=== PATIENT | male | born 1945 | race Caucasian/White ===

== ENCOUNTER 2018-07-04 09:11 | Emergency (ER) | payer OTHER, SELFPAY ==
[2018-07-04 09:21] VITALS: BP 147/90; PULSE 79; RESP 16; TEMP 36.7; O2SAT 98; BMI 35.9
--- NOTE | 2018-07-04 10:52 | ED_ITS ---
HPI - Extremity Problem General Chief complaint: Extremity Injury, Lower Stated complaint: Right leg pain/swelling/redness Time Seen by Provider: 07/04/18 10:38 Source: patient Mode of arrival: ambulatory Limitations: no limitations History of Present Illness HPI Narrative: This is a 72-year-old gentleman who comes to the emergency department with complaint of redness and swelling of his right lower extremity for a couple days. Last night he noticed a small bump on the anterior parker and overnight it got larger. The lump itself is quite tender. The patient thinks he might have had a fever overnight. He has not had any shortness of breath or chest pain. No nausea or vomiting. No diarrhea or constipation. He has felt a little under the weather. States he has had issues with redness and infections in that leg remotely in the past but not recently. He has not had any recent cuts or injuries that he is aware of. He has had some swelling in that lower extremity since it got red and painful. He is not having any numbness or tingling. He did take some Advil at home for pain yesterday. Related Data Previous Rx's Medication Instructions Recorded meloxicam [Mobic] 7.5 mg PO BIDCC PRN #10 tab 10/12/16 cyclobenzaprine 10 mg PO TIDP PRN #30 tab 10/17/16 clindamycin HCl 300 mg PO QID 10 Days #40 cap 07/04/18 Allergies Allergy/AdvReac Type Severity Reaction Status Date / Time No Known Drug Allergies Allergy Verified 07/04/18 09:21 Review of Systems Review of Systems All systems reviewed & are unremarkable except as noted in HPI and below Constitutional Reports fever(s) (Possible) and Denies weakness Cardiovascular Denies chest pain, Denies irregular heart rhythm, Denies lightheadedness, Denies palpitations, Denies dyspnea, Denies dyspnea on exertion and Denies orthopnea Respiratory Denies cough, Denies dyspnea, Denies dyspnea on exertion and Denies wheezing Gastrointestinal Gastrointestinal: Denies abdominal pain, Denies change in bowel habits, Denies diarrhea, Denies nausea and Denies vomiting Integumentary/Breasts Reports as per HPI, Reports rash, Reports skin pain and Reports skin swelling Neurologic Denies sensory deficit and Denies weakness Endocrine Denies palpitations Allergic/Immunologic Denies wheezing [facility] Surgical History Status post knee surgery Exam Initial Vital Signs Initial Vital Signs: Vital Signs Temperature 98.1 F 07/04/18 09:21 Pulse Rate 79 07/04/18 09:21 Respiratory Rate 16 07/04/18 09:21 Blood Pressure 147/90 H 07/04/18 09:21 Pulse Oximetry 98 07/04/18 09:21 Chest Chest: normal inspection of the chest Resp Effort & Inspection: normal respiratory effort, able to speak in complete sentences, no respiratory distress and no use of accessory muscles Auscultation: clear to auscultation bilaterally, no rales, no rhonchi and no wheezes Cardio Rate: regular rate Rhythm: regular rhythm Heart Sounds: no click, no gallops, no murmurs and no rubs Pulses: normal peripheral pulses GI Inspection: non-distended Palpation: soft, no hepatosplenomegaly, No guarding, No pulsatile mass and No tender Auscultation: normal bowel sounds Skin General: No ecchymosis, erythema, fluctuance (1 cm area of raised fluctuance over the right anterior parker. Soft, tender, warm to touch), No petechiae, No purpura and warm Neuro General: alert, oriented x3, gait normal and no focal motor deficits Speech: speech normal Motor: muscle tone normal throughout and strength 5/5 throughout Sensory Exam: no sensory deficits noted Extrem Right lower extremity: full ROM, normal capillary refill, edema Details: non- pitting and 1+, lower leg (Patient has an area of induration is about a cm surrounded by approximately 5 cm of erythema, warmth and edema.) Details: erythema Location: of the mid lower leg, tenderness and warmth and foot Details : normal capillary refill and vascular exam Details: dorsalis pedis pulse present and posterior tibial pulse present; no cyanosis Procedures Abscess I/D Site: lower extremity Side (if applicable): right Local Anesthetic: other anesthetic (topical lidocaine) Technique: incised with #11 blade Amount of fluid expressed (mL): 3 Irrigation: Yes Packing used?: none Complications: bleeding (very mild) Course Orders Ordered: ED Orders 07/04/18 11:20 Basic Metabolic Panel Stat Complete Blood Count AUTO DIFF Stat Discontinued Medications Clindamycin Phosphate (Cleocin) 600 mg in 50 mls @ 50 mls/hr IV NOW ONE Stop: 07/04/18 11:49 Last Infusion: 07/04/18 12:23 Dose: 0 mls/hr Admin: 07/04/18 11:17 Dose: 50 mls/hr Lidocaine (Lidocaine Oint) 1 applic TOP NOW ONE Stop: 07/04/18 10:51 Last Admin: 07/04/18 11:17 Dose: 1 applic Vital Signs - 8 hr 07/04/18 12:04 Temperature 98.1 F Pulse Rate 79 Respiratory Rate 16 Blood Pressure 147/90 H Pulse Oximetry 98 MDM - Extremity (Nontraumatic) Lab Data Result diagrams: 07/04/18 11:20 07/04/18 11:20 Lab Results 07/04/18 07/04/18 Range/Units 11:20 11:20 WBC 12.6 H (4.5-11.0) X10^3/uL RBC 4.37 L (4.5-5.9) X10^6/uL Hgb 14.5 (13.5-17.5) g/dL Hct 41.7 (41-53) % MCV 95.4 (80-100) fL MCH 33.1 (26-34) PG MCHC 34.7 (30-36) % RDW 14.3 (11.6-14.8) % Plt Count 187 (150-400) X10^3/uL Neut % (Auto) 75.5 H (50-75) % Lymph % (Auto) 13.2 L (25-40) % [place] % (Auto) 10.2 (3-14) % Eos % (Auto) 0.8 L (2-4) % Baso % (Auto) 0.3 (0-2) % Neut # (Auto) 9500 H (0564-7029) /uL Sodium 142 (137-145) mmol/L Potassium 4.2 (3.4-5.1) mmol/L Chloride 107 (98-107) mmol/L Carbon Dioxide 25 (22-32) mmol/L BUN 12 (9-20) mg/dL Creatinine 0.90 (0.66-1.25) mg/dL Estimated GFR > 60.0 (>60) mL/min BUN/Creatinine Ratio 13.3 (6-22) Glucose 88 (80-110) mg/dL Calcium 9.0 (8.4-10.2) mg/dL MDM Narrative Medical decision making narrative: Patient appears to have a small abscess which was drained by MD which had on of purulent fluid in comparison to the size of the lesion patient has some surrounding cellulitis. He was given a dose of clindamycin IV. Lab work did not show any acute changes he does not have any other signs of sepsis or SIRS criteria. Patient was offered to return for repeat evaluation and potentially another dose of IV antibiotics but he prefers to switch to orals at this time which I think he will tolerate well. We discussed wound care and the need to continue warm compresses. Discharge Plan Departure Patient Disposition: Home Clinical Impression: Abscess of left lower extremity, Cellulitis of left leg Discharge Date/Time: 07/04/18 12:34 Interventions: ED Discharge Assessment Last Done: 07/04/18 12:33 Instructions: DI for Skin Abscess Activity Restrictions/Additional Instructions: Follow-up in 48 hr if your symptoms are not improving. May either follow up with your primary care physician or if you're having fevers greater than 100.4, increasing redness, increasing swelling or rapidly increasing / worsening symptoms return to the emergency department. Take antibiotics until they are completely gone. You may continue to take Advil as needed for pain. Continue to use warm compresses to the affected area. Prescriptions: New clindamycin HCl 300 mg capsule 300 mg PO QID 10 Days Qty: 40 RF: 0 No Action meloxicam [Mobic] 7.5 MG tablet 7.5 mg PO BIDCC PRNQty: 10 RF: 0 cyclobenzaprine 10 MG tablet 10 mg PO TIDP PRNQty: 30 RF: 0
[2018-07-04] MEDS: CLINDAMYCIN 600 MG/50 ML PIGGYBACK 50 MG IV (11:17)
[2018-07-04] MEDS: LIDOCAINE 5% OINT 35 GM 1 APPLIC TOP (11:17)
[2018-07-04 11:44] LABS: Add Manual Diff / Slide Review NO; Basophils Percent Auto 0.3 % (0-2); Eosinophils Percent Auto 0.8 % (2-4); Hematocrit 41.7 % (41-53); Hemoglobin 14.5 g/dL (13.5-17.5); Lymphocytes Percent Auto 13.2 % (25-40); Mean Corpuscular HGB Conc 34.7 % (30-36); Mean Corpuscular Hemoglobin 33.1 PG (26-34); Mean Corpuscular Volume 95.4 fL (80-100); Monocytes Percent Auto 10.2 % (3-14); Neutrophils Absolute Auto 9500 /uL (3000-5900); Neutrophils Percent Auto 75.5 % (50-75); Platelet Count 187 X10^3/uL (150-400); Red Blood Cell Count 4.37 X10^6/uL (4.5-5.9); Red Cell Distribution Width 14.3 % (11.6-14.8); White Blood Cell Count 12.6 X10^3/uL (4.5-11.0)
[2018-07-04 11:51] LABS: BUN Creatinine Ratio 13.3 (6-22); Blood Urea Nitrogen 12 mg/dL (9-20); Carbon Dioxide 25 mmol/L (22-32); Chloride 107 mmol/L (98-107); Estimated Glomerular Filt Rate > 60.0 mL/min (>60); Glucose 88 mg/dL (80-110); HEMOLYSIS < 15 (0-50); Potassium 4.2 mmol/L (3.4-5.1); Sodium 142 mmol/L (137-145)
[2018-07-04 12:04] VITALS: BP 147/90; PULSE 79; RESP 16; TEMP 36.7; O2SAT 98; BMI 35.9
== END 2018-07-04 12:34 | disposition home or self-care (01) ==
PROVIDERS: Emergency Provider Emergency Medicine; Family Provider Family Medicine; PCP Family Medicine
DX: L02.416 Cutaneous abscess of left lower limb (principal); L03.116 Cellulitis of left lower limb
CPT/HCPCS: 10060; 36591; 80048; 85025; 96365; 99283; 99284

== ENCOUNTER → 2018-09-14 11:30 | Outpatient (CLI) | payer OTHER, SELFPAY ==
--- NOTE | 2018-09-14 | DI.RAD.S_ITS ---
PROCEDURE: XR FOOT LT MIN 3V INDICATIONS: PERSISTANT LEFT FOOT PAIN TECHNIQUE: 3 views of the foot were acquired. COMPARISON: None. FINDINGS: Bones: No fractures or dislocations. No suspicious bony lesions. Soft tissues: There is marked soft tissue swelling over the dorsum of the forefoot. IMPRESSION: Soft tissue swelling of the dorsum of the forefoot. Although no bony erosions are identified, plain film radiography is relatively insensitive in the acute phases of osteomyelitis and may not demonstrate radiographic changes for 15 days. If acute osteomyelitis is of clinical concern, nuclear medicine regional bone scan or MRI is recommended. Dictated by: Karoline Fregoso M.D. on 09/14/2018 at 14:16 Approved by: Karoline Fregoso M.D. on 09/14/2018 at 14:20
== END ==
PROVIDERS: PCP Family Medicine; Visit Provider Family Medicine
DX: M79.672 Pain in left foot (principal); M79.89 Other specified soft tissue disorders
CPT/HCPCS: 73630

== ENCOUNTER → 2019-04-26 16:03 | Outpatient (CLI) | payer MEDICARE, MEDICAID, OTHER, SELFPAY ==
--- NOTE | 2019-04-26 | DI.RAD.S_ITS ---
PROCEDURE: XR FOOT LT MIN 3V INDICATIONS: NON HEALING WOUND L FOOT TECHNIQUE: 3 views of the foot were acquired. COMPARISON: [facility], CR, XR FOOT LT MIN 3V, 09/14/2018, 11:38. FINDINGS: Bones: No fractures or dislocations. No suspicious bony lesions. Mild osteophytic changes throughout left foot are seen. No gross bony erosive changes or cortical destruction. Tiny plantar and dorsal calcaneal enthesophytes are seen. Soft tissues: No tibiotalar joint effusion. Achilles tendon appears normal. Mild dorsal soft tissue swelling over mid and forefoot is seen. IMPRESSION: Mild left foot osteoarthritis. No fracture or dislocation. No radiographic evidence of osteomyelitis. Dorsal soft tissue swelling. Dictated by: Simón Saul M.D. on 04/26/2019 at 16:38 Approved by: Simón Saul M.D. on 04/26/2019 at 16:41
== END ==
PROVIDERS: PCP Family Medicine; Visit Provider Physician Assistant
DX: S91.302A Unspecified open wound, left foot, initial encounter (principal); M19.072 Primary osteoarthritis, left ankle and foot
CPT/HCPCS: 73630

== ENCOUNTER 2019-08-05 10:29 | Emergency (ER) | payer MEDICARE, MEDICAID, OTHER, SELFPAY ==
[2019-08-05 10:43] VITALS: BP 158/106; PULSE 74; RESP 20; TEMP 36.2; O2SAT 99; BMI 37.2
--- NOTE | 2019-08-05 10:50 | DI.RAD.S_ITS ---
PROCEDURE: XR SHOULDER LT MIN 2V INDICATIONS: injury TECHNIQUE: 3 views of the shoulder were acquired. COMPARISON: [facility], , CHEST 1 VIEW, 01/10/2012, 1:20. FINDINGS: Bones: No fractures or dislocations. There is moderate acromioclavicular joint degeneration. No suspicious bony lesions. Visualized ribs demonstrate mildly displaced fractures of the anterior left 3rd and 4th ribs. Soft tissues: No evidence of pneumothorax. No suspicious soft tissue calcifications. IMPRESSION: 1. No shoulder fracture or dislocation. 2. Fractures of the left 3rd and 4th ribs. Dictated by: Munir Mansfield M.D. on 08/05/2019 at 11:11 Approved by: Munir Mansfield M.D. on 08/05/2019 at 11:24
--- NOTE | 2019-08-05 10:51 | DI.RAD.S_ITS ---
PROCEDURE: XR SHOULDER RT MIN 2V INDICATIONS: injury/fall TECHNIQUE: 3 views of the shoulder were acquired. COMPARISON: None. FINDINGS: Bones: No acute fractures or dislocations. There is an old right clavicular fracture with moderate displacement of the fragments. Visualized ribs appear intact. Soft tissues: No suspicious soft tissue calcifications. IMPRESSION: 1. No definite acute fracture. 2. Chronic fracture of the right clavicle shaft demonstrated. Dictated by: Munir Mansfield M.D. on 08/05/2019 at 11:24 Approved by: Munir Mansfield M.D. on 08/05/2019 at 11:28
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
[2019-08-05 12:15] VITALS: BP 129/100; PULSE 64; RESP 16; O2SAT 99
== END 2019-08-05 12:32 | disposition home or self-care (01) ==
PROVIDERS: Emergency Provider Nurse Practitioner Family; PCP Family Medicine
DX: S49.91XA Unspecified injury of right shoulder and upper arm, initial encounter (principal); S49.92XA Unspecified injury of left shoulder and upper arm, initial encounter; W17.89XA Other fall from one level to another, initial encounter
CPT/HCPCS: 73030; 99282; 99283

== ENCOUNTER 2019-11-08 10:52 | Emergency (ER) | payer MEDICARE, MEDICAID, OTHER, SELFPAY ==
[2019-11-08] VITALS (8 sets, daily range): BP systolic 110–147; BP diastolic 62–99; PULSE 72–130; RESP 16–22; TEMP 37.4; O2SAT 94–100
--- NOTE | 2019-11-08 11:22 | ED.DIZZY ---
HPI - Dizziness <Daniela Mtz DO - Last Filed: 11/09/19 07:09> General Chief Complaint: Dizziness Stated Complaint: weak and dizzy Time Seen by Provider: 11/08/19 11:02 Source: patient Mode of arrival: Wheelchair Limitations: no limitations History of Present Illness HPI Narrative: Patient is a 73-year-old male who has history of atrial fibrillation presents with dizziness which started around 730 this morning. He said he woke up coughing as this started to feel dizzy he just felt like he is off balance it does seem to be little bit worse with position of the still doesn't feel quite right he says the back of the of his head doesn't feel right. He denies any fever or chills he does have a nonproductive cough. He denies any shortness of breath. MD complaint: dizziness and lightheadedness Related Data Home Medications Medication Instructions Recorded Confirmed Pain Pill 1 tab PO .ONCE 08/05/19 08/05/19 aspirin 325 mg PO DAILY 08/05/19 08/05/19 Previous Rx's Medication Instructions Recorded azithromycin See Rx Instructions .ROUTE 11/08/19 .COMPLEX #6 tab Allergies Allergy/AdvReac Type Severity Reaction Status Date / Time No Known Drug Allergies Allergy Verified 07/04/18 09:21 Review of Systems <DO Heavenly Lawson Last Filed: 11/09/19 07:09> Review of Systems ROS Unobtainable: All systems reviewed & are unremarkable except as noted in HPI and below Constitutional Constitutional: Denies chills, Denies fever(s), Denies frequent falls, Denies lethargy and Denies weakness Eyes Eyes: Denies change in vision, Denies eye discharge, Denies irritation and Denies loss of vision ENT Ears, Nose, Mouth, and Throat: Denies change in voice, Reports dizziness, Denies neck pain and Denies sore throat Cardiovascular Cardiovascular: Denies chest pain, Denies irregular heart rhythm, Denies lightheadedness, Denies palpitations, Denies dyspnea, Denies dyspnea on exertion and Denies orthopnea Respiratory Respiratory: Denies cough, Denies dyspnea, Denies dyspnea on exertion and Denies wheezing Gastrointestinal Gastrointestinal: Denies abdominal pain, Denies change in bowel habits, Denies diarrhea, Denies nausea and Denies vomiting Musculoskeletal Musculoskeletal: Denies neck pain Integumentary/Breasts Skin/Breast: Denies pruritus, Denies erythema, Denies rash and Denies wounds Neurologic Neurologic: Reports as per HPI, Denies confusion, Reports dizziness, Denies frequent falls, Denies lack of coordination, Denies focal weakness, Denies loss of vision and Denies weakness Psychiatric Psychiatric: Denies confusion Endocrine Endocrine: Denies palpitations Allergic/Immunologic Allergic/Immunologic: Denies wheezing Patient History <Daniela Mtz DO - Last Filed: 11/09/19 07:09> Medical History Atrial fibrillation (Acute) Surgical History Status post knee surgery Social History Smoking Status: Current every day smoker Smoking Status: Current every day smoker alcohol intake frequency: a few times a month Alcohol type: hard liquor Substance Use Type: does not use Exam <Daniela Mtz DO - Last Filed: 11/09/19 07:09> Initial Vital Signs Initial Vital Signs: Vital Signs Temperature 99.3 F 11/08/19 11:06 Pulse Rate 100 H 11/08/19 11:06 Respiratory Rate 16 11/08/19 11:06 Blood Pressure 142/99 H 11/08/19 11:06 Pulse Oximetry 97 11/08/19 11:06 GENERAL: Alert pleasant elderly male no acute distress HEENT: Head atraumatic,EOMI, pupils reactive CARDIOVASCULAR: Regular rate and rhythm without murmurs, rubs or gallops. RESPIRATORY: Breath sounds equal bilaterally, no wheezes rales or rhonchi. ABDOMEN: Soft, nontender. Normoactive bowel sounds all 4 quadrants. No guarding or rebound. EXTREMITIES: Normal range of motion, no clubbing or edema. Neurovascularly intact NEUROLOGICAL: Alert and oriented x4.Normal gait and speech. Cranial nerves II through XII grossly intact. Good [id number]-pain left shoulder on the, good [id number], strength equal bilaterally, no dysarthria or aphasia, sensation in tact to soft touch bilaterally, no visual changes, no facial droop arrest SKIN: Warm, dry, no laceration, no petechiae, no rashes or lesions. <Milly C Mank, DO - Last Filed: 11/08/19 20:30> Initial Vital Signs Initial Vital Signs: Vital Signs Temperature 99.3 F 11/08/19 11:06 Pulse Rate 100 H 11/08/19 11:06 Respiratory Rate 16 11/08/19 11:06 Blood Pressure 142/99 H 11/08/19 11:06 Pulse Oximetry 97 11/08/19 11:06 Scores <Daniela Mtz DO - Last Filed: 11/09/19 07:09> NIH Stroke Scale Level of Conciousness: Alert, keenly responsive Ask month/age: Answers both questions correctly. Open/close eyes, close hand: Performs both tasks correctly Best gaze horizontal: Normal Visual gutierrez: No visual loss Facial palsy: Normal symetrical movement Left arm drift: No drift for full 10 sec Right arm drift: No drift for full 10 sec Left leg drift: No drift for full 10 sec Right leg drift: No drift for full 10 sec Limb ataxia: Absent Sensory on face/arms/legs: Normal, no sensory loss Best language: No aphasia, normal Dysarthria: Normal Extinction or inattention: No abnormality Total NIH Stroke scale score: 0 Course <Daniela Mtz DO - Last Filed: 11/09/19 07:09> Orders Ordered: Discontinued Medications Sodium Chloride (Normal Saline 0.9%) 1,000 mls @ 150 mls/hr IV CONT HONG Last Infusion: 11/08/19 16:00 Dose: 150 mls/hr Documented by: Admin: 11/08/19 11:41 Dose: 150 mls/hr Documented by: MATTHEW Ceftriaxone Sodium 500 mg/ (Dextrose) 50 mls @ 100 mls/hr IV NOW ONE Stop: 11/08/19 14:23 Last Admin: 11/08/19 15:17 Dose: Not Given Documented by: MATTHEW Ceftriaxone Sodium/Dextrose (Rocephin) 1 gm in 50 mls @ 100 mls/hr IV NOW ONE Stop: 11/08/19 15:36 Last Infusion: 11/08/19 16:01 Dose: 0 mls/hr Documented by: Admin: 11/08/19 15:23 Dose: 100 mls/hr Documented by: MATTHEW Meclizine HCl (Antivert) 25 mg PO NOW ONE Stop: 11/08/19 11:23 Last Admin: 11/08/19 11:39 Dose: 25 mg Documented by: MATTHEW Vital Signs Vital signs: Vital Signs - 8 hr 11/08/19 13:04 11/08/19 13:30 11/08/19 14:00 Pulse Rate 80 130 H 76 Pulse Rate [Orthostatic Lying] 85 Pulse Rate [Orthostatic Sitting] 88 Pulse Rate [Orthostatic Standing] 123 H Respiratory Rate 16 20 Blood Pressure [Left Arm] 130/62 136/91 H Blood Pressure [Orthostatic Lying] 130/62 Blood Pressure [Orthostatic Sitting] 140/82 Blood Pressure [Orthostatic Standing] 147/86 H Pulse Oximetry 97 94 11/08/19 14:30 11/08/19 15:05 Pulse Rate 72 72 Pulse Rate [Orthostatic Lying] Pulse Rate [Orthostatic Sitting] Pulse Rate [Orthostatic Standing] Respiratory Rate 20 22 Blood Pressure [Left Arm] 133/74 135/79 Blood Pressure [Orthostatic Lying] Blood Pressure [Orthostatic Sitting] Blood Pressure [Orthostatic Standing] Pulse Oximetry 98 100 <Milly Clifford, - Last Filed: 11/08/19 20:30> Orders Ordered: Discontinued Medications Sodium Chloride (Normal Saline 0.9%) 1,000 mls @ 150 mls/hr IV CONT HONG Last Infusion: 11/08/19 16:00 Dose: 150 mls/hr Documented by: Admin: 11/08/19 11:41 Dose: 150 mls/hr Documented by: MATTHEW Ceftriaxone Sodium 500 mg/ (Dextrose) 50 mls @ 100 mls/hr IV NOW ONE Stop: 11/08/19 14:23 Last Admin: 11/08/19 15:17 Dose: Not Given Documented by: MATTHEW Ceftriaxone Sodium/Dextrose (Rocephin) 1 gm in 50 mls @ 100 mls/hr IV NOW ONE Stop: 11/08/19 15:36 Last Infusion: 11/08/19 16:01 Dose: 0 mls/hr Documented by: Admin: 11/08/19 15:23 Dose: 100 mls/hr Documented by: MATTHEW Meclizine HCl (Antivert) 25 mg PO NOW ONE Stop: 11/08/19 11:23 Last Admin: 11/08/19 11:39 Dose: 25 mg Documented by: MATTHEW Vital Signs Vital signs: Vital Signs - 8 hr 11/08/19 13:04 11/08/19 13:30 11/08/19 14:00 Pulse Rate 80 130 H 76 Pulse Rate [Orthostatic Lying] 85 Pulse Rate [Orthostatic Sitting] 88 Pulse Rate [Orthostatic Standing] 123 H Respiratory Rate 16 20 Blood Pressure [Left Arm] 130/62 136/91 H Blood Pressure [Orthostatic Lying] 130/62 Blood Pressure [Orthostatic Sitting] 140/82 Blood Pressure [Orthostatic Standing] 147/86 H Pulse Oximetry 97 94 11/08/19 14:30 11/08/19 15:05 Pulse Rate 72 72 Pulse Rate [Orthostatic Lying] Pulse Rate [Orthostatic Sitting] Pulse Rate [Orthostatic Standing] Respiratory Rate 20 22 Blood Pressure [Left Arm] 133/74 135/79 Blood Pressure [Orthostatic Lying] Blood Pressure [Orthostatic Sitting] Blood Pressure [Orthostatic Standing] Pulse Oximetry 98 100 MDM - Dizziness <Daniela Mtz DO - Last Filed: 11/09/19 07:09> Lab Data Attestation: I reviewed the patient's lab results. Result diagrams: 11/08/19 11:05 11/08/19 11:05 Labs: Lab Results 11/08/19 11/08/19 11/08/19 Range/Units 11:05 11:05 11:05 WBC 19.2 H (4.5-11.0) X10^3/uL RBC 4.76 (4.5-5.9) X10^6/uL Hgb 15.4 (13.5-17.5) g/dL Hct 44.6 (41-53) % MCV 93.6 (80-100) fL MCH 32.4 (26-34) PG MCHC 34.6 (30-36) % RDW 13.6 (11.6-14.8) % Plt Count 216 (150-400) X10^3/uL Neut % (Auto) 85.3 H (50-75) % Lymph % (Auto) 4.9 L (25-40) % [place] % (Auto) 9.3 (3-14) % Eos % (Auto) 0.2 L (2-4) % Baso % (Auto) 0.3 (0-2) % Neut # (Auto) 25430 H (5839-5978) /uL Lymph # (Auto) 900 L (0153-4498) /uL [place] # (Auto) 1800 H (0-900) /uL Eos # (Auto) 0 (0-450) /uL Baso # (Auto) 100 (0-100) /uL Sodium 140 (137-145) mmol/L Potassium 3.6 (3.4-5.1) mmol/L Chloride 107 (98-107) mmol/L Carbon Dioxide 23 (22-32) mmol/L BUN 7 L (9-20) mg/dL Creatinine 0.80 (0.66-1.25) mg/dL Estimated GFR > 60.0 (>60) mL/min BUN/Creatinine Ratio 8.8 (6-22) Glucose 117 H (80-110) mg/dL Lactate (0.7-2.1) mmol/L Calcium 9.2 (8.4-10.2) mg/dL Total Bilirubin 1.3 (0.2-1.3) mg/dL AST 34 (17-59) IU/L ALT 23 (<50) IU/L Alkaline Phosphatase 82 (38-126) U/L Troponin I < 0.012 (0.01-0.034) ng/mL B-Natriuretic Peptide < 100 (<100) Total Protein 7.3 (6.3-8.2) g/dL Albumin 4.1 (3.5-5.0) g/dL Globulin 3.2 (1.7-4.1) g/dL Albumin/Globulin Ratio 1.3 (1.0-2.8) Urine Color Urine Appearance Urine pH (4.5-8.0) Ur Specific [place] (1.000-1.035) Urine Protein (Negative) Urine Glucose (UA) (Negative) g/dL Urine Ketones (NEGATIVE) Urine Occult Blood (Negative) Urine Nitrate (Negative) Urine Bilirubin (NEGATIVE) Urine Urobilinogen (0.2) E.U./dL Ur Leukocyte Esterase (NEGATIVE) Urine RBC (0-5/HPF) Urine WBC (0-5/HPF) Urine Bacteria (None) Ur Culture Indicated? 11/08/19 11/08/19 11/08/19 Range/Units 11:05 13:30 15:17 WBC (4.5-11.0) X10^3/uL RBC (4.5-5.9) X10^6/uL Hgb (13.5-17.5) g/dL Hct (41-53) % MCV (80-100) fL MCH (26-34) PG MCHC (30-36) % RDW (11.6-14.8) % Plt Count (150-400) X10^3/uL Neut % (Auto) (50-75) % Lymph % (Auto) (25-40) % [place] % (Auto) (3-14) % Eos % (Auto) (2-4) % Baso % (Auto) (0-2) % Neut # (Auto) (2862-3071) /uL Lymph # (Auto) (0350-8158) /uL [place] # (Auto) (0-900) /uL Eos # (Auto) (0-450) /uL Baso # (Auto) (0-100) /uL Sodium (137-145) mmol/L Potassium (3.4-5.1) mmol/L Chloride (98-107) mmol/L Carbon Dioxide (22-32) mmol/L BUN (9-20) mg/dL Creatinine (0.66-1.25) mg/dL Estimated GFR (>60) mL/min BUN/Creatinine Ratio (6-22) Glucose (80-110) mg/dL Lactate 2.7 H 1.7 (0.7-2.1) mmol/L Calcium (8.4-10.2) mg/dL Total Bilirubin (0.2-1.3) mg/dL AST (17-59) IU/L ALT (<50) IU/L Alkaline Phosphatase (38-126) U/L Troponin I (0.01-0.034) ng/mL B-Natriuretic Peptide (<100) Total Protein (6.3-8.2) g/dL Albumin (3.5-5.0) g/dL Globulin (1.7-4.1) g/dL Albumin/Globulin Ratio (1.0-2.8) Urine Color Yellow Urine Appearance Cloudy Urine pH 6.5 (4.5-8.0) Ur Specific [place] 1.010 (1.000-1.035) Urine Protein 1+ H (Negative) Urine Glucose (UA) Negative (Negative) g/dL Urine Ketones Negative (NEGATIVE) Urine Occult Blood 1+ H (Negative) Urine Nitrate Negative (Negative) Urine Bilirubin Negative (NEGATIVE) Urine Urobilinogen 1.0 (0.2) E.U./dL Ur Leukocyte Esterase 3+ H (NEGATIVE) Urine RBC 0-1/hpf (0-5/HPF) Urine WBC >100/hpf H (0-5/HPF) Urine Bacteria Many (>30) H (None) Ur Culture Indicated? Specimen cultured ECG Data Attestation: I personally reviewed and interpreted this ECG as follows: Prior ECG tracings: available for review Interpretation: Atrial fibrillation rate [address] elevation or depressions, no prior EKG since 2011 where he was noted to be normal sinus rhythm MDM Narrative Medical decision making narrative: Patient's symptoms have improved with some IV fluid and meclizine. However he is noted to have leukocytosis of 19 but is afebrile. Chest x-ray and urinalysis are pending. He overall has improved and does not appear septic. Patient is signed out to Dr. Clifford for further medical management <Milly Clifford, DO - Last Filed: 11/08/19 20:30> Lab Data Attestation: I reviewed the patient's lab results. Labs: Lab Results 11/08/19 11/08/19 11/08/19 Range/Units 11:05 11:05 11:05 WBC 19.2 H (4.5-11.0) X10^3/uL RBC 4.76 (4.5-5.9) X10^6/uL Hgb 15.4 (13.5-17.5) g/dL Hct 44.6 (41-53) % MCV 93.6 (80-100) fL MCH 32.4 (26-34) PG MCHC 34.6 (30-36) % RDW 13.6 (11.6-14.8) % Plt Count 216 (150-400) X10^3/uL Neut % (Auto) 85.3 H (50-75) % Lymph % (Auto) 4.9 L (25-40) % [place] % (Auto) 9.3 (3-14) % Eos % (Auto) 0.2 L (2-4) % Baso % (Auto) 0.3 (0-2) % Neut # (Auto) 24284 H (0925-3613) /uL Lymph # (Auto) 900 L (8540-8153) /uL [place] # (Auto) 1800 H (0-900) /uL Eos # (Auto) 0 (0-450) /uL Baso # (Auto) 100 (0-100) /uL Sodium 140 (137-145) mmol/L Potassium 3.6 (3.4-5.1) mmol/L Chloride 107 (98-107) mmol/L Carbon Dioxide 23 (22-32) mmol/L BUN 7 L (9-20) mg/dL Creatinine 0.80 (0.66-1.25) mg/dL Estimated GFR > 60.0 (>60) mL/min BUN/Creatinine Ratio 8.8 (6-22) Glucose 117 H (80-110) mg/dL Lactate (0.7-2.1) mmol/L Calcium 9.2 (8.4-10.2) mg/dL Total Bilirubin 1.3 (0.2-1.3) mg/dL AST 34 (17-59) IU/L ALT 23 (<50) IU/L Alkaline Phosphatase 82 (38-126) U/L Troponin I < 0.012 (0.01-0.034) ng/mL B-Natriuretic Peptide < 100 (<100) Total Protein 7.3 (6.3-8.2) g/dL Albumin 4.1 (3.5-5.0) g/dL Globulin 3.2 (1.7-4.1) g/dL Albumin/Globulin Ratio 1.3 (1.0-2.8) Urine Color Urine Appearance Urine pH (4.5-8.0) Ur Specific [place] (1.000-1.035) Urine Protein (Negative) Urine Glucose (UA) (Negative) g/dL Urine Ketones (NEGATIVE) Urine Occult Blood (Negative) Urine Nitrate (Negative) Urine Bilirubin (NEGATIVE) Urine Urobilinogen (0.2) E.U./dL Ur Leukocyte Esterase (NEGATIVE) Urine RBC (0-5/HPF) Urine WBC (0-5/HPF) Urine Bacteria (None) Ur Culture Indicated? 11/08/19 11/08/19 11/08/19 Range/Units 11:05 13:30 15:17 WBC (4.5-11.0) X10^3/uL RBC (4.5-5.9) X10^6/uL Hgb (13.5-17.5) g/dL Hct (41-53) % MCV (80-100) fL MCH (26-34) PG MCHC (30-36) % RDW (11.6-14.8) % Plt Count (150-400) X10^3/uL Neut % (Auto) (50-75) % Lymph % (Auto) (25-40) % [place] % (Auto) (3-14) % Eos % (Auto) (2-4) % Baso % (Auto) (0-2) % Neut # (Auto) (6161-0724) /uL Lymph # (Auto) (2789-2306) /uL [place] # (Auto) (0-900) /uL Eos # (Auto) (0-450) /uL Baso # (Auto) (0-100) /uL Sodium (137-145) mmol/L Potassium (3.4-5.1) mmol/L Chloride (98-107) mmol/L Carbon Dioxide (22-32) mmol/L BUN (9-20) mg/dL Creatinine (0.66-1.25) mg/dL Estimated GFR (>60) mL/min BUN/Creatinine Ratio (6-22) Glucose (80-110) mg/dL Lactate 2.7 H 1.7 (0.7-2.1) mmol/L Calcium (8.4-10.2) mg/dL Total Bilirubin (0.2-1.3) mg/dL AST (17-59) IU/L ALT (<50) IU/L Alkaline Phosphatase (38-126) U/L Troponin I (0.01-0.034) ng/mL B-Natriuretic Peptide (<100) Total Protein (6.3-8.2) g/dL Albumin (3.5-5.0) g/dL Globulin (1.7-4.1) g/dL Albumin/Globulin Ratio (1.0-2.8) Urine Color Yellow Urine Appearance Cloudy Urine pH 6.5 (4.5-8.0) Ur Specific [place] 1.010 (1.000-1.035) Urine Protein 1+ H (Negative) Urine Glucose (UA) Negative (Negative) g/dL Urine Ketones Negative (NEGATIVE) Urine Occult Blood 1+ H (Negative) Urine Nitrate Negative (Negative) Urine Bilirubin Negative (NEGATIVE) Urine Urobilinogen 1.0 (0.2) E.U./dL Ur Leukocyte Esterase 3+ H (NEGATIVE) Urine RBC 0-1/hpf (0-5/HPF) Urine WBC >100/hpf H (0-5/HPF) Urine Bacteria Many (>30) H (None) Ur Culture Indicated? Specimen cultured Imaging Data Chest x-ray: Radiologist's Impression: ROCEDURE: XR CHEST 1V INDICATIONS: cough and WBC TECHNIQUE: One view of the chest was acquired. COMPARISON: [facility], CR, XR SHOULDER RT MIN 2V, 08/05/2019, 10:50. [facility], CR, CHEST 1 VIEW, 01/10/2012, 1:20. FINDINGS: Surgical changes and devices: None. Lungs and pleura: Right lower lung infiltrate is seen, which is likely within the right middle lobe. No other focal lung abnormality can be seen. Mediastinum: The cardiac contours are within normal limits. The aorta demonstrates calcification and tortuosity. Bones and chest wall: No suspicious bony lesions. There is an unhealed right clavicle fracture. Mild dextroconvex scoliotic curvature is seen. Age-appropriate bony degenerative changes are seen. Overlying soft tissues appear unremarkable. IMPRESSION: Right lower lung infiltrate, likely within the right middle lobe. Unhealed right clavicle fracture. Dictated by: Dimitrios Harris M.D. on 11/08/2019 at 13:05 Approved by: Dimitrios Harris M.D. on 11/08/2019 at 13:06 CT scan - head: Radiologist's Impression: [address] [address] [address] Scan Report Signed Patient: Sreekanth Cobb#: [id number] : 6Acct:[id number] Age/Sex: 73 / MDate of Service: 11/08/19 Loc: ED Accession Number: [id number] Procedure: CT head/brain wo con Ordering Provider: Daniela Mtz D.O. PROCEDURE: CT HEAD/BRAIN WO CON INDICATIONS: dizzy TECHNIQUE: Noncontrast 4.5 mm thick angled axial sections acquired from the foramen magnum to the vertex, with coronal and sagittal reformats. For radiation dose reduction, the following was used: automated exposure control, adjustment of mA and/or kV according to patient size. COMPARISON: None. FINDINGS: Image quality: Excellent. CSF spaces: Basal cisterns are patent. No extra-axial fluid collections. The ventricles are symmetric in size and shape. Brain: No intracranial bleeds or masses. There is cerebral volume loss for age, with resultant ventricular and sulcal prominence. There are periventricular and deep white matter chronic small vessel ischemic changes. There is intracranial internal carotid artery atherosclerosis. Skull and face: Calvarium and visualized facial bones appear intact, without suspicious lesions. Sinuses: Visualized sinuses and mastoids are clear. IMPRESSION: Unremarkable intracranial study for age, without an acute abnormality identified. Dictated by: Dimitrios Harris M.D. on 11/08/2019 at 10:48 Approved by: Dimitrios Harris M.D. on 11/08/2019 at 10:48 ECG Data Attestation: I personally reviewed and interpreted this ECG as follows: Interpretation: AFib rate of 91 QRS of 98 with QTC of 404, nonspecific change no elevation. No depression clearly appreciated. Left anterior fascicular block. MDM Narrative Medical decision making narrative: This is 73-year-old male comes in with dizziness and weakness. Patient states he ambulate had department felt a little bit off balance but feels safe to return home. Chest x-ray suspicious for right middle lobe pneumonia and urinalysis shows leukocyte esterase with greater 100 WBCs but no nitrates is concerning for infection. Discussed with patient plan to do a dose of Rocephin in the ED. patient to be started on azithromycin. Patient does have blood cultures pending. Initial lactate was 2.7 but improved to normal appropriate range. He does have a white count of 19. He has AFib but has not been RVR in department. Had 1 very short episode elevated heart rate but otherwise has been in the 70s with normal pressure and afebrile. Patient feels safe to return home and defers observation we discussed strict return precautions. Discharge Plan Departure Patient Disposition: Home Clinical Impression: Pneumonia, Acute UTI, Dizziness Discharge Date/Time: 11/08/19 16:03 Instructions: DI for Urinary Tract Infection (UTI) Activity Restrictions/Additional Instructions: Follow up with primary care in the next 24-48 hours for recheck. Take antibiotics until completely gone. Start oral antibiotics today after you get home. Your blood cultures are pending and should return in the next 48-72 hours. If positive you should expect a phone call. Return to ER for fevers greater 100.4 F, new confusion, severe headaches, worsening dizziness, lightheadedness, passing out, new chest pain, shortness of breath, persistent vomiting, black or bloody stools or other new or concerning symptoms. Prescriptions: New azithromycin 250 mg tablet See Rx Instructions .ROUTE .COMPLEX Qty: 6 RF: 0 No Action aspirin 325 mg Tablet 325 mg PO DAILY RF: 0 Pain Pill 1 tab PO .ONCE RF: 0 Referrals: Linda Melendez MD [Primary Care Provider] -
--- NOTE | 2019-11-08 11:26 | DI.CT.S_ITS ---
PROCEDURE: CT HEAD/BRAIN WO CON INDICATIONS: dizzy TECHNIQUE: Noncontrast 4.5 mm thick angled axial sections acquired from the foramen magnum to the vertex, with coronal and sagittal reformats. For radiation dose reduction, the following was used: automated exposure control, adjustment of mA and/or kV according to patient size. COMPARISON: None. FINDINGS: Image quality: Excellent. CSF spaces: Basal cisterns are patent. No extra-axial fluid collections. The ventricles are symmetric in size and shape. Brain: No intracranial bleeds or masses. There is cerebral volume loss for age, with resultant ventricular and sulcal prominence. There are periventricular and deep white matter chronic small vessel ischemic changes. There is intracranial internal carotid artery atherosclerosis. Skull and face: Calvarium and visualized facial bones appear intact, without suspicious lesions. Sinuses: Visualized sinuses and mastoids are clear. IMPRESSION: Unremarkable intracranial study for age, without an acute abnormality identified. Dictated by: Dimitrios Harris M.D. on 11/08/2019 at 10:48 Approved by: Dimitrios Harris M.D. on 11/08/2019 at 10:48
[2019-11-08 11:29] LABS: Add Manual Diff / Slide Review NO; Basophils Absolute Auto 100 /uL (0-100); Basophils Percent Auto 0.3 % (0-2); Eosinophils Absolute Auto 0 /uL (0-450); Eosinophils Percent Auto 0.2 % (2-4); Hematocrit 44.6 % (41-53); Hemoglobin 15.4 g/dL (13.5-17.5); Lymphocytes Absolute Auto 900 /uL (1100-4500); Lymphocytes Percent Auto 4.9 % (25-40); Mean Corpuscular HGB Conc 34.6 % (30-36); Mean Corpuscular Hemoglobin 32.4 PG (26-34); Mean Corpuscular Volume 93.6 fL (80-100); Monocytes Absolute Auto 1800 /uL (0-900); Monocytes Percent Auto 9.3 % (3-14); Neutrophils Absolute Auto 16400 /uL (1500-7000); Neutrophils Percent Auto 85.3 % (50-75); Platelet Count 216 X10^3/uL (150-400); Red Blood Cell Count 4.76 X10^6/uL (4.5-5.9); Red Cell Distribution Width 13.6 % (11.6-14.8); White Blood Cell Count 19.2 X10^3/uL (4.5-11.0)
[2019-11-08 11:35] LABS: Alanine Aminotransferase 23 IU/L (<50); Albumin 4.1 g/dL (3.5-5.0); Albumin Globulin Ratio 1.3 (1.0-2.8); Alkaline Phosphatase 82 U/L (38-126); Aspartate Aminotransferase 34 IU/L (17-59); BUN Creatinine Ratio 8.8 (6-22); Bilirubin Total 1.3 mg/dL (0.2-1.3); Blood Urea Nitrogen 7 mg/dL (9-20); Calcium 9.2 mg/dL (8.4-10.2); Carbon Dioxide 23 mmol/L (22-32); Chloride 107 mmol/L (98-107); Estimated Glomerular Filt Rate > 60.0 mL/min (>60); Globulin 3.2 g/dL (1.7-4.1); Glucose 117 mg/dL (80-110); HEMOLYSIS < 15 (0-50); Potassium 3.6 mmol/L (3.4-5.1); Sodium 140 mmol/L (137-145); Total Protein 7.3 g/dL (6.3-8.2)
[2019-11-08] MEDS: MECLIZINE HCL 12.5 MG TABLET 25 MG PO (11:39)
[2019-11-08] MEDS: SODIUM CHLORIDE 0.9% 1,000 ML 150 ML IV (11:41)
[2019-11-08 11:47] LABS: Troponin I < 0.012 ng/mL (0.01-0.034)
--- NOTE | 2019-11-08 12:24 | PC.NURSE ---
Patient with sudden onset dizziness/difficulty walking this morning. Has a.fib that is untreated with medication per patient. Has bilateral leg swelling with some redness which he says is normal. ALso reports cough this morning, no productive.
--- NOTE | 2019-11-08 13:18 | DI.RAD.S_ITS ---
PROCEDURE: XR CHEST 1V INDICATIONS: cough and WBC TECHNIQUE: One view of the chest was acquired. COMPARISON: [facility], CR, XR SHOULDER RT MIN 2V, 08/05/2019, 10:50. [facility], CR, CHEST 1 VIEW, 01/10/2012, 1:20. FINDINGS: Surgical changes and devices: None. Lungs and pleura: Right lower lung infiltrate is seen, which is likely within the right middle lobe. No other focal lung abnormality can be seen. Mediastinum: The cardiac contours are within normal limits. The aorta demonstrates calcification and tortuosity. Bones and chest wall: No suspicious bony lesions. There is an unhealed right clavicle fracture. Mild dextroconvex scoliotic curvature is seen. Age-appropriate bony degenerative changes are seen. Overlying soft tissues appear unremarkable. IMPRESSION: Right lower lung infiltrate, likely within the right middle lobe. Unhealed right clavicle fracture. Dictated by: Dimitrios Harris M.D. on 11/08/2019 at 13:05 Approved by: Dimitrios Harris M.D. on 11/08/2019 at 13:06
--- NOTE | 2019-11-08 13:47 | PC.NURSE ---
Patient ambulated to the bathroom with this EDRN as a standby assists. He states he feels wobbly and is dizzy when he turns his head however this is much improved.
[2019-11-08 13:51] LABS: Appearance Urine UA CLOUDY; Bilirubin Urine UA NEGATIVE (NEGATIVE); Color Urine UA YELLOW; Glucose Urine UA NEGATIVE (Negative); Ketones Urine UA NEGATIVE (NEGATIVE); Leukocyte Esterase Urine UA 3+ (NEGATIVE); Nitrite Urine UA NEGATIVE (Negative); Occult Blood Urine UA 1+ (Negative); Protein Urine UA 1+ (Negative); pH Urine UA 6.5 (4.5-8.0)
[2019-11-08 13:56] LABS: B Type Natriuretic Peptide < 100 (<100)
[2019-11-08 14:00] LABS: RBC Urine 0-1/HPF (0-5/HPF); WBC Urine >100/HPF (0-5/HPF)
[2019-11-08 14:01] LABS: Bacteria Urine Many (>30); Culture Indicated Urine Specimen Cultured
[2019-11-08 14:40] LABS: Lactate (Lactic Acid) 2.7 mmol/L (0.7-2.1)
[2019-11-08] MEDS: CEFTRIAXONE 1 GM/50 ML FROZ.PIGGY IV (15:23)
[2019-11-08 15:40] LABS: Lactate (Lactic Acid) 1.7 mmol/L (0.7-2.1)
[2019-11-08 16:26] LABS: Reflexed Lactate in 2 Hours Y
== END 2019-11-08 16:03 | disposition home or self-care (01) ==
PROVIDERS: Emergency Medicine; Emergency Provider Emergency Medicine; PCP Family Medicine
DX: J18.9 Pneumonia, unspecified organism (principal); N39.0 Urinary tract infection, site not specified; R42 Dizziness and giddiness; I48.91 Unspecified atrial fibrillation; D72.829 Elevated white blood cell count, unspecified
CPT/HCPCS: 36415; 70450; 71045; 80053; 81001; 83605; 83880; 84484; 85025; 87040; 87077; 87086; 87186; 93005; 93010; 96361; 96365; 99285

== ENCOUNTER 2020-05-15 22:10 | Observation (INO) | payer MEDICARE, MEDICAID, OTHER, SELFPAY ==
[2020-05-15] VITALS (8 sets, daily range): BP systolic 169–215; BP diastolic 101–120; PULSE 68–95; RESP 20–31; TEMP 36.7; O2SAT 96–99; BMI 37.6
--- NOTE | 2020-05-15 22:26 | ED_ITS ---
HPI - General Adult General Chief complaint: Hypertension Stated complaint: states really high blood pressure Time Seen by Provider: 05/15/20 22:17 History of Present Illness HPI narrative: 74-year-old gentleman with a history of atrial fibrillation rate controlled without any medications and not anticoagulated, presents with significant hypertension. He does not have a diagnosis of significant hypertension and with previous blood pressures in the 140/90 range he had been started on low-dose metoprolol and then had a syncopal episode with severe hypotension. He has remained off blood pressure medications since that time. He notes that he still has recurrent episodes of hypotension where he is dizzy and quite sleepy. Typically his blood pressures are in the 130 systolic range without medication. Over the last 3 days he has noticed that he has had episodes that he describes as ?wooziness? where he is and is cognitively alert and generally feels unwell and with that has noted blood pressures as high as 260/150. Blood pressures have come down intermittently and then will go back up again. He saw his primary care physician yesterday and was started on 12.5 mg a metoprolol tartrate. He took a dose last night a dose this morning with blood pressures in the 210/115 range with some chest tightness, mild dyspnea and mild cognitive complaints he opted to take an additional dose of 25 mg this evening. Blood pressures continued to increase and he presents to the emergency room. He specifically states that he has not been increasingly tired, does not describe exertional dyspnea. When his blood pressure is significantly high he does feel it, says that his head feels full any has trouble thinking, a bit more trouble breathing and tightness through his chest but does not complain of palpitations or overt chest pain. He describes not being able to lay flat on his back because he gets short of breath and having to wake up a couple times during the night to take a couple big breaths. It is unclear whether this is actual orthopnea, related to sleep positioning, or sleep apnea or a combination of all of the above. He does have chronic lower extremity edema that has not worsened. He has not noted that his chronic atrial fibrillation has been going faster recently. Related Data Home Medications Medication Instructions Recorded Confirmed Pain Pill 1 tab PO .ONCE 08/05/19 08/05/19 aspirin 325 mg PO DAILY 08/05/19 08/05/19 Previous Rx's Medication Instructions Recorded azithromycin See Rx Instructions .ROUTE 11/08/19 .COMPLEX #6 tab Allergies Allergy/AdvReac Type Severity Reaction Status Date / Time No Known Drug Allergies Allergy Verified 07/04/18 09:21 Review of Systems Review of Systems Narrative: Pertinent positive and negative findings as per HPI Reports 2 prior neck injuries and he has chronic distal paresthesias because of this. Has not noticed any increase in any of these symptoms with his severe hyp ertensive periods Remainder of review of systems is otherwise unremarkable for Constitutional: Fevers, chills, ENT: No sore throat, neck pain, ear pain Respiratory: Cough, wheeze, dyspnea GI: Nausea, vomiting, diarrhea, change in bowel habits, black or bloody stools : Dysuria, hematuria, flank pain Skin: Rashes, nonhealing lesions Endocrine: Fatigue, heat or cold intolerance, very dry skin Heme: Easy bruising or bleeding Patient History Medical History (Updated 05/16/20 @ 01:43 by KARYN Alejandre) Atrial fibrillation (Acute) Congestive heart failure (Acute) Hypertensive urgency (Acute) Tobacco dependence (Acute) Surgical History (Updated 05/16/20 @ 01:44 by KARYN Alejandre) H/O skin graft (Acute) S/P TURP (Acute) Status post knee surgery Total knee replacement status (Acute) Family History (Updated 05/16/20 @ 01:45 by KARYN Alejandre) Mother CVA (cerebral vascular accident) Myocardial infarct Father Diabetes mellitus Social History Smoking Status: Current every day smoker Smoking Status: Current every day smoker alcohol intake frequency: a few times a month Alcohol type: hard liquor Substance Use Type: does not use Exam Narrative Exam Narrative: General: Healthy appearing, in no acute distress. Able to give a complete and coherent history. Well-nourished well-developed HEENT: Moist mucous membranes, normal sclera with reactive pupils, Neck: No JVD, supple Respiratory: Lungs are clear to auscultation, no wheezing no rales no rhonchi. Full and symmetrical air movement Cardiac: Irregular rate and rhythm no murmurs no bruits Abdomen: Soft nontender good bowel tones, no flank pain Skin: Warm and dry, no rashes Neurologic: Grossly neurologically intact with no obvious asymmetries or abnormalities Extremities: No trauma, well perfused, chronic venous stasis changes with 2+ lower extremity edema bilaterally and significant onychomycosis Psych: Cooperative, appropriate insight and affect Initial Vital Signs Initial Vital Signs: Vital Signs Blood Pressure 215/120 H 05/15/20 22:19 Course Orders Ordered: ED Orders 05/15/20 22:32 XR chest 1V Stat EKG-12 Lead Stat 05/15/20 22:38 Complete Blood Count AUTO DIFF Stat Comprehensive Metabolic Panel Stat Lipase Stat NT-proBNP (BNP-Adult 18+) Stat Partial Thromboplastin Time Stat Prothrombin Time INR Stat Troponin & CK Cardiac Panel Stat Acetaminophen (Tylenol) 650 mg PO Q6HR PRN PRN Reason: Fever/Mild Pain (1-3) Aspirin (Aspirin) 325 mg PO DAILY HONG Carvedilol (Coreg) 3.125 mg PO BID HONG Nicardipine HCl 25 mg/ Sodium (Chloride) 250 mls @ 50 mls/hr IV TITRATE HONG; Protocol Ondansetron HCl (Zofran) 4 mg IV Q8HR PRN PRN Reason: Nausea And Vomiting Sodium Chloride (Normal Saline 0.9% Flush) 10 ml IV PRN PRN PRN Reason: Flush Sodium Chloride (Normal Saline 0.9% Flush) 10 ml IV BID HONG Discontinued Medications Furosemide (Lasix) 40 mg IV NOW ONE Stop: 05/15/20 23:16 Last Admin: 05/15/20 23:28 Dose: 40 mg Documented by: MORIS Nicardipine HCl 25 mg/ Sodium (Chloride) 250 mls @ 50 mls/hr IV TITRATE HONG; Protocol Last Titration: 05/16/20 02:35 Dose: 0 mg/hr, 0 mls/hr Documented by: Titration: 05/16/20 00:54 Dose: 5 mg/hr, 50 mls/hr Documented by: Admin: 05/15/20 23:27 Dose: 5 mg/hr, 50 mls/hr Documented by: MORIS Vital Signs Vital signs: Vital Signs - 8 hr 05/15/20 22:19 05/15/20 22:20 05/15/20 22:30 Temperature 98.1 F Pulse Rate 87 82 Respiratory Rate 27 H 23 Blood Pressure 215/120 H 215/120 H 208/115 H Pulse Oximetry 99 99 05/15/20 22:46 05/15/20 23:00 05/15/20 23:15 Temperature Pulse Rate 76 79 77 Respiratory Rate 26 H 31 H 25 H Blood Pressure 189/110 H 185/104 H 190/115 H Pulse Oximetry 98 98 98 05/15/20 23:30 05/15/20 23:45 05/16/20 00:00 Temperature Pulse Rate 68 76 81 Respiratory Rate 22 26 H 31 H Blood Pressure 169/101 H 170/104 H 150/103 H Pulse Oximetry 97 96 98 05/16/20 00:15 Temperature Pulse Rate 78 Respiratory Rate 24 Blood Pressure 136/109 H Pulse Oximetry 97 Medical Decision Making Lab Data Result diagrams: 05/15/20 22:38 05/15/20 22:38 Labs: Lab Results 05/15/20 05/15/20 05/15/20 Range/Units 22:38 22:38 22:38 WBC 8.8 (4.5-11.0) X10^3/uL RBC 4.12 L (4.5-5.9) X10^6/uL Hgb 13.6 (13.5-17.5) g/dL Hct 39.5 L (41-53) % MCV 96.0 (80-100) fL MCH 33.0 (26-34) PG MCHC 34.4 (30-36) % RDW 13.5 (11.6-14.8) % Plt Count 158 (150-400) X10^3/uL Neut % (Auto) 56.9 (50-75) % Lymph % (Auto) 28.0 (25-40) % [place] % (Auto) 8.2 (3-14) % Eos % (Auto) 5.1 H (2-4) % Baso % (Auto) 1.8 (0-2) % Neut # (Auto) 5000 (6661-0439) /uL Lymph # (Auto) 2500 (9481-7669) /uL [place] # (Auto) 700 (0-900) /uL Eos # (Auto) 400 (0-450) /uL Baso # (Auto) 200 H (0-100) /uL PT 13.1 H (10.1-12.7) SECONDS INR 1.1 (0.9-1.3) APTT 31 (26.4-36.2) SECONDS Sodium 139 (137-145) mmol/L Potassium 3.7 (3.4-5.1) mmol/L Chloride 109 H (98-107) mmol/L Carbon Dioxide 22 (22-32) mmol/L BUN 14 (9-20) mg/dL Creatinine 0.70 (0.66-1.25) mg/dL Estimated GFR > 60.0 (>60) mL/min BUN/Creatinine Ratio 20.0 (6-22) Glucose 128 H (80-110) mg/dL Calcium 9.3 (8.4-10.2) mg/dL Total Bilirubin 0.7 (0.2-1.3) mg/dL AST 26 (17-59) IU/L ALT 23 (<50) IU/L Alkaline Phosphatase 66 (38-126) U/L Total Creatine Kinase 113 (55-170) U/L CK-MB (CK-2) 2.10 (<2.37) ng/mL CK-MB (CK-2) Rel Index 1.9 (1.5-5.0) % Troponin I < 0.012 (0.01-0.034) ng/mL NT-Pro-B Natriuret Pep (<125) pg/mL Total Protein 6.7 (6.3-8.2) g/dL Albumin 3.9 (3.5-5.0) g/dL Globulin 2.8 (1.7-4.1) g/dL Albumin/Globulin Ratio 1.4 (1.0-2.8) Lipase 103 (23-300) U/L COVID-19 PCR (Negative) 05/15/20 05/16/20 Range/Units 22:38 00:15 WBC (4.5-11.0) X10^3/uL RBC (4.5-5.9) X10^6/uL Hgb (13.5-17.5) g/dL Hct (41-53) % MCV (80-100) fL MCH (26-34) PG MCHC (30-36) % RDW (11.6-14.8) % Plt Count (150-400) X10^3/uL Neut % (Auto) (50-75) % Lymph % (Auto) (25-40) % [place] % (Auto) (3-14) % Eos % (Auto) (2-4) % Baso % (Auto) (0-2) % Neut # (Auto) (1132-1066) /uL Lymph # (Auto) (3971-9303) /uL [place] # (Auto) (0-900) /uL Eos # (Auto) (0-450) /uL Baso # (Auto) (0-100) /uL PT (10.1-12.7) SECONDS INR (0.9-1.3) APTT (26.4-36.2) SECONDS Sodium (137-145) mmol/L Potassium (3.4-5.1) mmol/L Chloride (98-107) mmol/L Carbon Dioxide (22-32) mmol/L BUN (9-20) mg/dL Creatinine (0.66-1.25) mg/dL Estimated GFR (>60) mL/min BUN/Creatinine Ratio (6-22) Glucose (80-110) mg/dL Calcium (8.4-10.2) mg/dL Total Bilirubin (0.2-1.3) mg/dL AST (17-59) IU/L ALT (<50) IU/L Alkaline Phosphatase (38-126) U/L Total Creatine Kinase (55-170) U/L CK-MB (CK-2) (<2.37) ng/mL CK-MB (CK-2) Rel Index (1.5-5.0) % Troponin I (0.01-0.034) ng/mL NT-Pro-B Natriuret Pep 549 H (<125) pg/mL Total Protein (6.3-8.2) g/dL Albumin (3.5-5.0) g/dL Globulin (1.7-4.1) g/dL Albumin/Globulin Ratio (1.0-2.8) Lipase (23-300) U/L COVID-19 PCR Negative (Negative) Imaging Data Chest x-ray: Attestation: I personally reviewed and interpreted this imaging study as follows: My Impression: Increased vascular congestion and increased cardiac silhouette. Most consistent with mild congestive heart failure. No pleural effusions no infiltrates no pneumothorax ECG Data Attestation: I personally reviewed and interpreted this ECG as follows: Interpretation: Atrial fibrillation at a rate of [address] T wave changes No acute ischemia MDM Narrative Medical decision making narrative: 74-year-old gentleman presents with 3 days of dramatically labile hypertension with numbers as high is 260/150 and symptomatic with these. Will trend back down but do not seem to be getting down to his baseline 130-140 range. He is currently in atrial fibrillation, anticoagulated and rate controlled. Has seen his primary care physician and a search for secondary sources of hypertension has been initiated. He apparently is scheduled to do a 24 hour a urine protein as well as renal ultrasound later this month. At this time with his mild heart failure, symptomatic hypertension I believe that more aggressive control and hospital management with further evaluation and trial of oral hypertensive medications is going to be the safest option. He does give a history of being on metoprolol in the distant past with dramatic hypotension on low doses. Labs are initially unremarkable. Chest x-ray is consistent for mild heart failure. Creatinine is normal. No evidence of infection and initial troponin is unremarkable. Given the symptomatic hypertension he is started on nicardipine in the emergency department for blood pressure control. BP 150/103 on 5mg nicardipine gtt. No CP/Dyspnea or head feeing full. Case is reviewed with KARYN Michelle, hospitalist service this evening and pt will be admitted for further work up of hypertensive urgency and mild CHF exacerbation Discharge Plan Departure Patient Disposition: Admitted As Inpatient Clinical Impression: Hypertensive urgency Congestive heart failure Qualifiers: Heart failure type: unspecified Heart failure chronicity: unspecified Qualified Code(s): I50.9 - Heart failure, unspecified Atrial fibrillation Qualifiers: Atrial fibrillation type: longstanding persistent Qualified Code(s): I48.11 - Longstanding persistent atrial fibrillation Discharge Date/Time: 05/16/20 00:55 Referrals: Linda Melendez MD [Primary Care Provider] - Admit Date/Time: 05/16/20 00:21 Admit Provider: Kaylah Higgins
--- NOTE | 2020-05-15 22:32 | DI.RAD.S_ITS ---
PROCEDURE: XR CHEST 1V INDICATIONS: chest pain TECHNIQUE: One view of the chest was acquired. COMPARISON: [facility], CR, XR CHEST 1V, 11/08/2019, 13:42. FINDINGS: Surgical changes and devices: None. Lungs and pleura: Lungs are clear. No pleural effusions or pneumothorax. Mediastinum: Mediastinal contours appear normal. Heart size is normal. 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 No suspicious bony lesions. Overlying soft tissues appear unremarkable. IMPRESSION: No acute cardiopulmonary disease process. Dictated by: Raine Sarmiento MD, PhD on 05/16/2020 at 8:00 Approved by: Raine Sarmiento MD, PhD on 05/16/2020 at 8:01
[2020-05-15 22:51] LABS: Add Manual Diff / Slide Review NO; Basophils Absolute Auto 200 /uL (0-100); Basophils Percent Auto 1.8 % (0-2); Eosinophils Absolute Auto 400 /uL (0-450); Eosinophils Percent Auto 5.1 % (2-4); Hematocrit 39.5 % (41-53); Hemoglobin 13.6 g/dL (13.5-17.5); Lymphocytes Absolute Auto 2500 /uL (1100-4500); Mean Corpuscular HGB Conc 34.4 % (30-36); Monocytes Absolute Auto 700 /uL (0-900); Monocytes Percent Auto 8.2 % (3-14); Neutrophils Absolute Auto 5000 /uL (1500-7000); Neutrophils Percent Auto 56.9 % (50-75); Platelet Count 158 X10^3/uL (150-400); Red Blood Cell Count 4.12 X10^6/uL (4.5-5.9); Red Cell Distribution Width 13.5 % (11.6-14.8); White Blood Cell Count 8.8 X10^3/uL (4.5-11.0)
[2020-05-15 22:55] LABS: INR 1.1 (0.9-1.3); Prothrombin Time 13.1 SECONDS (10.1-12.7)
[2020-05-15 22:58] LABS: PTT Partial Thromboplastin Tim 31 SECONDS (26.4-36.2)
[2020-05-15 23:00] LABS: Alanine Aminotransferase 23 IU/L (<50); Albumin 3.9 g/dL (3.5-5.0); Albumin Globulin Ratio 1.4 (1.0-2.8); Alkaline Phosphatase 66 U/L (38-126); Aspartate Aminotransferase 26 IU/L (17-59); Bilirubin Total 0.7 mg/dL (0.2-1.3); Blood Urea Nitrogen 14 mg/dL (9-20); Calcium 9.3 mg/dL (8.4-10.2); Carbon Dioxide 22 mmol/L (22-32); Chloride 109 mmol/L (98-107); Creatine Kinase 113 U/L (55-170); Estimated Glomerular Filt Rate > 60.0 mL/min (>60); Globulin 2.8 g/dL (1.7-4.1); Glucose 128 mg/dL (80-110); HEMOLYSIS < 15 (0-50); Lipase 103 U/L (23-300); Potassium 3.7 mmol/L (3.4-5.1); Sodium 139 mmol/L (137-145); Total Protein 6.7 g/dL (6.3-8.2)
[2020-05-15 23:11] LABS: Troponin I < 0.012 ng/mL (0.01-0.034)
[2020-05-15 23:15] LABS: CKMB % Relative Index 1.9 % (1.5-5.0)
[2020-05-15] MEDS: NICARDIPINE 25 MG in SODIUM CHLORIDE 0.9% 240 ML 50 ML IV (23:27)
[2020-05-15] MEDS: FUROSEMIDE 40 MG/4 ML VIAL IV (23:28)
[2020-05-15 23:35] LABS: NT-proBNP (BNP-Adult 18+) 549 pg/mL (<125)
[2020-05-16] VITALS (13 sets, daily range): BP systolic 102–164; BP diastolic 58–109; PULSE 53–96; RESP 18–31; TEMP 36–36.1; O2SAT 93–98; BMI 38.0
--- NOTE | 2020-05-16 00:05 | PC.NURSE ---
Pt started on nicardipine gtt for HTN. goal 160's/90's. Pressures labile. receiving 5mg/hr at this time. BP 150/103. lasix given per DEC. urinal at bedside. pt remains on cardiac monitoring call [place] in reach. will continue to monitor.
[2020-05-16 01:12] LABS: COVID19 -Nasal RAPID Negative (Negative)
--- NOTE | 2020-05-16 01:38 | P.HP_ITS ---
History of Present Illness History of Present Illness Date Patient Seen: 05/16/20 Time Patient Seen: 01:00 Chief complaint: states really high blood pressure Narrative: Sreekanth Cobb is a 74 y.o. smoker with a history of hypertension and atrial fibrillation on high dose aspirin daily presented to the ED after reporting a 4 day history of elevated blood pressure. On Thursday, he woke up at home feeling wobbly and woozy, took a blood pressure reading at home and stated it was quite high. He called a physician friend at home and when he checked his bp, it had dropped to 160/100, then down to 135/180. On Thursday, his bp kept creeping up. He saw his PCP on Thursday who put him on metoprolol 25 mg split in half twice daily. His bp still kept creeping up and he took 25 mg going from a systolic of 145 to 165. at 7 pm, he took another 25 mg and his blood pressure went from 191 to 201 and at that point, he called a friend who insisted he go the the hospital . 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 He denies dysuria, incontinence of bowel or bladder, has chronic body aches, or diarrhea or constipation. He does endorse having his blood pressure sometimes drop into a systolic of the 90s and has intermittent bilateral lower extremity swelling. Patient was referred to a [facility] for a renal ultrasound on May 29 with an appointment with a provider of which he does not know their name. States he waits for them to call. He underwent a workup for atrial fibrillation having an echocardiogram with other tests he does not remember and was never put on anticoagulation. In the ED, the started a nicardipine drip, he had a minorly elevated proBNP in the 500s, ED provider stated she saw some trace fluid in the bases and administered him 40 meQ of lasix. Initial Troponin was negative. She temperature 96.8?, blood pressure 151/93, heart rate 96, respiratory rate 19, oxygen saturation of 96% on room air, he weighs 135 kg with a BMI of 38.1. WBC 8.8, RBC 4.12, hemoglobin 13.6, hematocrit 39.5, platelet count 158, INR is 1.1, sodium 139, potassium 3.7, chloride 109, creatinine 0.7, BUN 14, GFR is greater than 60, glucose 128, calcium 9.3, liver enzymes are within normal limits, troponin 0.012, proBNP 549, and COVID-19 is negative. Patient History Medical History (Updated 05/16/20 @ 01:43 by KARYN Alejandre) Atrial fibrillation (Acute) Congestive heart failure (Acute) Hypertensive urgency (Acute) Tobacco dependence (Acute) Surgical History (Updated 05/16/20 @ 01:44 by KARYN Alejandre) H/O skin graft (Acute) S/P TURP (Acute) Status post knee surgery Total knee replacement status (Acute) Family & Social History Family History (Updated 05/16/20 @ 01:45 by KARYN Alejandre) Mother CVA (cerebral vascular accident) Myocardial infarct Father Diabetes mellitus Safety & Behavioral: Feels Safe in Current Yes Environment Been Physically Hurt or No Threatened By a Person Tobacco & Substance use: Smoking Status Current every day smoker alcohol intake frequency a few times a month Substance Use Type does not use Meds Home Medications and Allergies Home Medications Medication Instructions Recorded Confirmed Type Pain Pill 1 tab PO .ONCE 08/05/19 08/05/19 History aspirin 325 mg PO DAILY 08/05/19 08/05/19 History azithromycin See Rx Instructions .ROUTE 11/08/19 Rx .COMPLEX #6 tab Allergies Allergy/AdvReac Type Severity Reaction Status Date / Time No Known Drug Allergies Allergy Verified 07/04/18 09:21 Review of Systems Review of Systems ROS: Yes All systems reviewed with the patient and are negative except as otherwise documented Exam Vital Signs (past 8 hours): - 05/15/20 22:19 05/15/20 22:20 05/15/20 22:30 Temperature 98.1 F Pulse Rate 87 82 Respiratory Rate 27 H 23 Blood Pressure 215/120 H 215/120 H 208/115 H Pulse Oximetry 99 99 05/15/20 22:46 05/15/20 23:00 05/15/20 23:15 Temperature Pulse Rate 76 79 77 Respiratory Rate 26 H 31 H 25 H Blood Pressure 189/110 H 185/104 H 190/115 H Pulse Oximetry 98 98 98 05/15/20 23:30 05/15/20 23:45 05/16/20 00:00 Temperature Pulse Rate 68 76 81 Respiratory Rate 22 26 H 31 H Blood Pressure 169/101 H 170/104 H 150/103 H Pulse Oximetry 97 96 98 05/16/20 00:15 05/16/20 00:30 05/16/20 01:00 Temperature 96.8 F L Pulse Rate 78 69 96 H Respiratory Rate 24 20 19 Blood Pressure 136/109 H 153/82 H 151/93 H Pulse Oximetry 97 96 96 Oxygen Delivery Method Room Air Oxygen Flow Rate 0 Narrative Exam Narrative: Gen: Alert, oriented, well-developed 74 y.o. male, appears fatigued HEENT: normocephalic, atraumatic, conjunctiva clear, sclera non-icteric, oral mucosa pink and moist Neck: supple, full ROM, no JVD, trachea is midline Resp: Lungs CTA, non-labored breathing CV: RRR, no murmur or rubs Abd: soft, non-tender, normoactive BTs Skin: Multiple skin graft scars on both arms appearing well healed, recent removal of a skin lesion on his mid back, no lesions or rashes, dry and intact Neuro: Alert and oriented X 4 w/no focal deficits. Speech clear and coherent. Extremities: moves all 4 extremities, is ambulatory, negative Claudio?s sign Psyche: normal mood and affect. Objective Labs Result Diagrams: 05/15/20 22:38 05/15/20 22:38 Labs: Laboratory Results - last 24 hr 05/15/20 05/15/20 05/15/20 22:38 22:38 22:38 WBC 8.8 RBC 4.12 L Hgb 13.6 Hct 39.5 L MCV 96.0 MCH 33.0 MCHC 34.4 RDW 13.5 Plt Count 158 Neut % (Auto) 56.9 Lymph % (Auto) 28.0 [place] % (Auto) 8.2 Eos % (Auto) 5.1 H Baso % (Auto) 1.8 Neut # (Auto) 5000 Lymph # (Auto) 2500 [place] # (Auto) 700 Eos # (Auto) 400 Baso # (Auto) 200 H PT 13.1 H INR 1.1 APTT 31 Sodium 139 Potassium 3.7 Chloride 109 H Carbon Dioxide 22 BUN 14 Creatinine 0.70 Estimated GFR > 60.0 BUN/Creatinine Ratio 20.0 Glucose 128 H Calcium 9.3 Total Bilirubin 0.7 AST 26 ALT 23 Alkaline Phosphatase 66 Total Creatine Kinase 113 CK-MB (CK-2) 2.10 CK-MB (CK-2) Rel Index 1.9 Troponin I < 0.012 NT-Pro-B Natriuret Pep Total Protein 6.7 Albumin 3.9 Globulin 2.8 Albumin/Globulin Ratio 1.4 Lipase 103 COVID-19 PCR 05/15/20 05/16/20 22:38 00:15 WBC RBC Hgb Hct MCV MCH MCHC RDW Plt Count Neut % (Auto) Lymph % (Auto) [place] % (Auto) Eos % (Auto) Baso % (Auto) Neut # (Auto) Lymph # (Auto) [place] # (Auto) Eos # (Auto) Baso # (Auto) PT INR APTT Sodium Potassium Chloride Carbon Dioxide BUN Creatinine Estimated GFR BUN/Creatinine Ratio Glucose Calcium Total Bilirubin AST ALT Alkaline Phosphatase Total Creatine Kinase CK-MB (CK-2) CK-MB (CK-2) Rel Index Troponin I NT-Pro-B Natriuret Pep 549 H Total Protein Albumin Globulin Albumin/Globulin Ratio Lipase COVID-19 PCR Negative Assessment & Plan Assessment & Plan narrative: Hypertensive urgency with labile blood pressures, acute, present on admission -he will be continued on a nicardipine drip at 5 mg per hour titrate to a goal blood pressure of 130/80 -Start metoprolol 25 mg po daily -Cardiac telemetry -Renal ultrasound later today -Consider differential CARYN, pheochromcytoma (24 hour urine fractionated metanephrines and catecholamines and serum fractionated metanephrines), hyperthyroidism (TSH with reflex to free T4) Suspected congestive heart failure with a CHADS Vas2 score of 3, likely chronic -Echocardiogram -probable referral to cardiiology Atrial fibrillation, chronic and intermittent -Echocardiogram in the am -Consider anticoagulation and type Consults: none Patient is admitted under to the ICU with expected length of stay greater than 2 midnights due to severity of presenting symptoms, risk of adverse event, and complexity of treatment plan. FEN: saline lock, heart healthy diet, BMP and magnesium in the am. VTE prophylaxis: Bilateral SCDs Dispo: Unknown at this time Code Status: Full code as discussed with patient Scores CHADS-VASc Congestive heart failure: yes Hypertension: yes Age 75 years or older: no Diabetes mellitus: no Stroke, TIA, or TE: no Vascular disease: no Age 65 to 74 years: yes Sex category (female): Male CHADS-VASc Score: 3
[2020-05-16 05:24] LABS: Add Manual Diff / Slide Review NO; Basophils Absolute Auto 100 /uL (0-100); Basophils Percent Auto 0.6 % (0-2); Eosinophils Absolute Auto 400 /uL (0-450); Eosinophils Percent Auto 4.9 % (2-4); Hematocrit 37.5 % (41-53); Lymphocytes Absolute Auto 2900 /uL (1100-4500); Lymphocytes Percent Auto 34.8 % (25-40); Mean Corpuscular HGB Conc 34.7 % (30-36); Mean Corpuscular Hemoglobin 33.3 PG (26-34); Monocytes Absolute Auto 900 /uL (0-900); Monocytes Percent Auto 11.1 % (3-14); Neutrophils Absolute Auto 4100 /uL (1500-7000); Neutrophils Percent Auto 48.6 % (50-75); Platelet Count 149 X10^3/uL (150-400); Red Blood Cell Count 3.91 X10^6/uL (4.5-5.9); Red Cell Distribution Width 13.5 % (11.6-14.8); White Blood Cell Count 8.3 X10^3/uL (4.5-11.0)
[2020-05-16 05:39] LABS: Alanine Aminotransferase 22 IU/L (<50); Albumin 3.6 g/dL (3.5-5.0); Albumin Globulin Ratio 1.3 (1.0-2.8); Alkaline Phosphatase 65 U/L (38-126); Aspartate Aminotransferase 25 IU/L (17-59); BUN Creatinine Ratio 18.8 (6-22); Bilirubin Total 0.6 mg/dL (0.2-1.3); Blood Urea Nitrogen 13 mg/dL (9-20); Carbon Dioxide 25 mmol/L (22-32); Chloride 108 mmol/L (98-107); Estimated Glomerular Filt Rate > 60.0 mL/min (>60); Globulin 2.7 g/dL (1.7-4.1); Glucose 104 mg/dL (80-110); HEMOLYSIS < 15 (0-50); Magnesium 1.9 mg/dL (1.6-2.3); Potassium 3.5 mmol/L (3.4-5.1); Sodium 143 mmol/L (137-145); Total Protein 6.3 g/dL (6.3-8.2)
[2020-05-16 05:44] LABS: Cholesterol 132 mg/dL (140-199); HDL Cholesterol 35 mg/dL (40-60); LDL Cholesterol Calculated 82 mg/dL (<100); Triglycerides 77 mg/dL (35-150)
[2020-05-16 05:51] LABS: Troponin I < 0.012 ng/mL (0.01-0.034)
--- NOTE | 2020-05-16 06:08 | PC.NURSE ---
Admit Note-Patient brought to Room 226 at 0100, A/Ox4, ambulated in room without chest pain, dyspnea, or c/o headache. Nicardipine gtt infusing at 5mg/hr. Initial NBP 164/96, was informed by ED RN goal was 160s/90s, HR 80s A-fib, SpO2 97% on RA. After COOK FROZEN DESSERT saw patient, she changed BP goal to 130s/80s VO. At 0230, BP decreased to 102/57 while patient sleeping, gtt off, patient denies dizziness, says I was afraid of that. It has happened before. COOK FROZEN DESSERT aware. Throughout rest of night, BP has remained < 140s/85, see Q30min vital trends. HR A-fib SVR mostly in 50s while sleeping. Voided > 1600ml since admit.
[2020-05-16 06:13] LABS: TSH w/ Reflex to FT4 2.39 uIU/mL (0.47-4.68)
[2020-05-16] MEDS: carvediloL 3.125 MG TABLET PO (09:28)
[2020-05-16] MEDS: ASPIRIN 325 MG TABLET PO (09:29)
[2020-05-16] MEDS: SODIUM CHLORIDE 0.9% FLUSH 10 ML IV (09:29)
--- NOTE | 2020-05-16 09:45 | PM.DS.1 ---
History of Present Illness History of Present Illness Date Patient Seen: 05/16/20 Time Patient Seen: 09:45 Chief complaint: states really high blood pressure Narrative: As per KARYN Alejandre: Sreekanth Cobb is a 74 y.o. smoker with a history of hypertension and atrial fibrillation on high dose aspirin daily presented to the ED after reporting a 4 day history of elevated blood pressure. On Thursday, he woke up at home feeling wobbly and woozy, took a blood pressure reading at home and stated it was quite high. He called a physician friend at home and when he checked his bp, it had dropped to 160/100, then down to 135/180. On Thursday, his bp kept creeping up. He saw his PCP on Thursday who put him on metoprolol 25 mg split in half twice daily. His bp still kept creeping up and he took 25 mg going from a systolic of 145 to 165. at 7 pm, he took another 25 mg and his blood pressure went from 191 to 201 and at that point, he called a friend who insisted he go the the hospital. 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 He denies dysuria, incontinence of bowel or bladder, has chronic body aches, or diarrhea or constipation. He does endorse having his blood pressure sometimes drop into a systolic of the 90s and has intermittent bilateral lower extremity swelling. Patient was referred to a [facility] for a renal ultrasound on May 29 with an appointment with a provider of which he does not know their name. States he waits for them to call. He underwent a workup for atrial fibrillation having an echocardiogram with other tests he does not remember and was never put on anticoagulation. In the ED, the started a nicardipine drip, he had a minorly elevated proBNP in the 500s, ED provider stated she saw some trace fluid in the bases and administered him 40 meQ of lasix. Initial Troponin was negative. She temperature 96.8?, blood pressure 151/93, heart rate 96, respiratory rate 19, oxygen saturation of 96% on room air, he weighs 135 kg with a BMI of 38.1. WBC 8.8, RBC 4.12, hemoglobin 13.6, hematocrit 39.5, platelet count 158, INR is 1.1, sodium 139, potassium 3.7, chloride 109, creatinine 0.7, BUN 14, GFR is greater than 60, glucose 128, calcium 9.3, liver enzymes are within normal limits, troponin 0.012, proBNP 549, and COVID-19 is negative. Discharge Providers Provider Date of admission: 05/16/20 00:21 Discharge Date: 05/16/20 Primary care physician: Linda Melendez MD Discharge provider: Osman Dickens DO Summary Hospital Course Discharge Diagnosis: 1. Hypertensive urgency, acute, present on admission, resolved 2. chronic atrial fibrillation, present on admission Hospital Course: Patient presented with hypertensive urgency. He was placed on a nicardipene infusion in the emergency room and admitted to medicine. His blood pressure rapidly improved and he was quickly taken off of the infusion. He was further given lasix and home dose of metoprolol. He has labile blood pressures and frequently has symptoms of low blood pressures at home. He is being evaluated as an outpatient for possible secondary causes of high blood pressure. Unable to perform echo before medical stability due to availability and renal artery imaging not available at our hospital. His blood pressures remained stable off of nicardipene for >10 hours, and he was started on metoprolol and HCTZ with adequate control. He is currently on aspirin full dose for anticoagulation, and I recommended he speak to his PCP about full anticoagulation given his CHADS2-VASC score. Exam Vital Signs (past 8 hours): - 05/16/20 02:30 05/16/20 03:00 05/16/20 04:00 Temperature 97.0 F L Pulse Rate 78 65 70 Respiratory Rate 18 19 18 Blood Pressure 102/67 117/58 L 128/83 Pulse Oximetry 97 96 93 05/16/20 05:00 05/16/20 06:00 05/16/20 07:00 Temperature Pulse Rate 81 68 54 L Respiratory Rate 18 18 18 Blood Pressure 134/88 130/87 125/73 Pulse Oximetry 97 94 97 05/16/20 08:00 Temperature Pulse Rate 53 L Respiratory Rate 18 Blood Pressure 105/88 Pulse Oximetry 95 Oxygen Delivery Method Room Air Oxygen Flow Rate 0 Narrative Exam Narrative: Gen: Alert, oriented, well-developed 74 y.o. male, appears fatigued HEENT: normocephalic, atraumatic, conjunctiva clear, sclera non-icteric, oral mucosa pink and moist Neck: supple, full ROM, no JVD, trachea is midline Resp: Lungs CTA, non-labored breathing CV: RRR, no murmur or rubs Abd: soft, non-tender, normoactive BTs Skin: Multiple skin graft scars on both arms appearing well healed, recent removal of a skin lesion on his mid back, no lesions or rashes, dry and intact Neuro: Alert and oriented X 4 w/no focal deficits. Speech clear and coherent. Extremities: moves all 4 extremities, is ambulatory, negative Claudio?s sign Psyche: normal mood and affect. Objective Labs Result Diagrams: 05/16/20 04:44 05/16/20 04:44 Labs: Laboratory Results - last 24 hr 05/15/20 05/15/20 05/15/20 22:38 22:38 22:38 WBC 8.8 RBC 4.12 L Hgb 13.6 Hct 39.5 L MCV 96.0 MCH 33.0 MCHC 34.4 RDW 13.5 Plt Count 158 Neut % (Auto) 56.9 Lymph % (Auto) 28.0 [place] % (Auto) 8.2 Eos % (Auto) 5.1 H Baso % (Auto) 1.8 Neut # (Auto) 5000 Lymph # (Auto) 2500 [place] # (Auto) 700 Eos # (Auto) 400 Baso # (Auto) 200 H PT 13.1 H INR 1.1 APTT 31 Sodium 139 Potassium 3.7 Chloride 109 H Carbon Dioxide 22 BUN 14 Creatinine 0.70 Estimated GFR > 60.0 BUN/Creatinine Ratio 20.0 Glucose 128 H Calcium 9.3 Magnesium Total Bilirubin 0.7 AST 26 ALT 23 Alkaline Phosphatase 66 Total Creatine Kinase 113 CK-MB (CK-2) 2.10 CK-MB (CK-2) Rel Index 1.9 Troponin I < 0.012 NT-Pro-B Natriuret Pep Total Protein 6.7 Albumin 3.9 Globulin 2.8 Albumin/Globulin Ratio 1.4 Triglycerides Cholesterol LDL Cholesterol, Calc HDL Cholesterol Lipase 103 TSH Nasal Screen MRSA (PCR) COVID-19 PCR 05/15/20 05/16/20 05/16/20 22:38 00:15 01:00 WBC RBC Hgb Hct MCV MCH MCHC RDW Plt Count Neut % (Auto) Lymph % (Auto) [place] % (Auto) Eos % (Auto) Baso % (Auto) Neut # (Auto) Lymph # (Auto) [place] # (Auto) Eos # (Auto) Baso # (Auto) PT INR APTT Sodium Potassium Chloride Carbon Dioxide BUN Creatinine Estimated GFR BUN/Creatinine Ratio Glucose Calcium Magnesium Total Bilirubin AST ALT Alkaline Phosphatase Total Creatine Kinase CK-MB (CK-2) CK-MB (CK-2) Rel Index Troponin I NT-Pro-B Natriuret Pep 549 H Total Protein Albumin Globulin Albumin/Globulin Ratio Triglycerides Cholesterol LDL Cholesterol, Calc HDL Cholesterol Lipase TSH Nasal Screen MRSA (PCR) Positive for mrsa H COVID-19 PCR Negative 05/16/20 05/16/20 05/16/20 04:44 04:44 04:44 WBC 8.3 RBC 3.91 L Hgb 13.0 L Hct 37.5 L MCV 96.0 MCH 33.3 MCHC 34.7 RDW 13.5 Plt Count 149 L Neut % (Auto) 48.6 L Lymph % (Auto) 34.8 [place] % (Auto) 11.1 Eos % (Auto) 4.9 H Baso % (Auto) 0.6 Neut # (Auto) 4100 Lymph # (Auto) 2900 [place] # (Auto) 900 Eos # (Auto) 400 Baso # (Auto) 100 PT INR APTT Sodium 143 Potassium 3.5 Chloride 108 H Carbon Dioxide 25 BUN 13 Creatinine 0.69 Estimated GFR > 60.0 BUN/Creatinine Ratio 18.8 Glucose 104 Calcium 9.0 Magnesium 1.9 Total Bilirubin 0.6 AST 25 ALT 22 Alkaline Phosphatase 65 Total Creatine Kinase CK-MB (CK-2) CK-MB (CK-2) Rel Index Troponin I < 0.012 NT-Pro-B Natriuret Pep Total Protein 6.3 Albumin 3.6 Globulin 2.7 Albumin/Globulin Ratio 1.3 Triglycerides Cholesterol LDL Cholesterol, Calc HDL Cholesterol Lipase TSH Nasal Screen MRSA (PCR) COVID-19 PCR 05/16/20 05/16/20 04:44 04:44 WBC RBC Hgb Hct MCV MCH MCHC RDW Plt Count Neut % (Auto) Lymph % (Auto) [place] % (Auto) Eos % (Auto) Baso % (Auto) Neut # (Auto) Lymph # (Auto) [place] # (Auto) Eos # (Auto) Baso # (Auto) PT INR APTT Sodium Potassium Chloride Carbon Dioxide BUN Creatinine Estimated GFR BUN/Creatinine Ratio Glucose Calcium Magnesium Total Bilirubin AST ALT Alkaline Phosphatase Total Creatine Kinase CK-MB (CK-2) CK-MB (CK-2) Rel Index Troponin I NT-Pro-B Natriuret Pep Total Protein Albumin Globulin Albumin/Globulin Ratio Triglycerides 77 Cholesterol 132 L LDL Cholesterol, Calc 82 HDL Cholesterol 35 L Lipase TSH 2.39 Nasal Screen MRSA (PCR) COVID-19 PCR Discharge Plan Discharge Plan Patient Disposition: Home Discharge comment: You were admitted to the hospital with high blood pressure. This improved over time. You should complete the renal ultrasound you have scheduled and follow up with your primary care provider. You have been started on a new blood pressure medication. If you find yourself dizzy when you stand or your blood pressure is too low you can stop this medication. Discharge orders & Medications Prescriptions: New hydrochlorothiazide 12.5 mg tablet 12.5 mg PO DAILY 30 Days Qty: 30 RF: 0 Continued metoprolol tartrate 25 mg Tablet 12.5 mg PO BID RF: 0 aspirin 325 mg Tablet 325 mg PO DAILY RF: 0 Follow up/Referrals: Linda Melendez MD [Primary Care Provider] - Discharge Health Status Health Concerns: Hypertensive urgency Diet/Activity/Treatments Diet: Diet as Tolerated Activity: As tolerated Visit Report/Discharge Packet Instructions: Essential Hypertension, DI for Heart Failure, Hydrochlorothiazide Visit Report Forms: Congestive Heart Failure, Patient Portal/API, Stroke Signs & Symptoms Discharge Data Primary Care Provider: Linda Melendez Discharges patient from system. Discharge Date/Time: 05/16/20 12:30 Quality VTE Deep Vein Thrombosis/Pulmonary Embolism Present on Admission: No
--- NOTE | 2020-05-16 11:32 | CM.DANOTE ---
DCP Assessment: EMR reviewed: patient is a Pleasant 74 yr old male who was admitted for Hypertensive crisis. PCP is Dr. Melendez. CM/Rn met with patient at the bedside and explained role. patient was alert and oriented x3 during CM/RN visit. Patient currently lives in a trailer in [place] alone but three children live near by and are always coming to check on the patient. patient currently owns a cane if he needs it but never really uses it. 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 I: Medicare and medicaid Plan: D/C home with families help if needed when medically stable. No identified D/C planning needs noted at this time. Rocio Garvey RN Discharge Planning/Care Management CM Discharge Assessment Start: 05/16/20 11:31 Freq: Status: Active Protocol: Document 05/16/20 11:31 HS (Rec: 05/16/20 11:32 HS [id number]) Discharge Planning Assessment Assigned Airline Transport Pilot Rocio Garvey RN Advance Directives? No Advance Directives on File No History Provided By Patient,Medical Record Prior Living Arrangements Mobile home Household Members none Type of transporation used prior to Drives own vehicle admit Independent with ADL's Yes Is patient alert and oriented? Yes Caregiver for Another No DME Already Rented / Owned Cane Barriers to Discharge No Discharge Plan Home Referrals Initiated None needed Whiteboard Updated in Patient Room with Yes name and ext. # of Airline Transport Pilot Review Status In Process Next Review Type Continued Stay Review
[2020-05-16] MEDS: hydroCHLOROthiazide 12.5 MG CAPSULE PO (11:40)
== END 2020-05-16 12:30 | disposition home or self-care (01) ==
LOC: ED 23:17 → ICU 05-16 07:15 → AC 05-18 11:55 → ICU 05-21 13:58
PROVIDERS: Admitting Provider Nurse Practitioner Family; Emergency Provider Emergency Medicine; PCP Family Medicine; Referring Provider Emergency Medicine; Visit Provider Nurse Practitioner Family
DX: I16.0 Hypertensive urgency (principal); I48.20 Chronic atrial fibrillation, unspecified; I10 Essential (primary) hypertension; F17.210 Nicotine dependence, cigarettes, uncomplicated; Z11.59 Encounter for screening for other viral diseases
CPT/HCPCS: 36415; 71045; 80053; 80061; 82550; 82553; 83690; 83735; 83880; 84443; 84484; 85025; 85610; 85730; 87635; 87797; 93005; 96365; 96375; 99284; G0378; J1940

== ENCOUNTER 2020-05-20 00:44 | Emergency (ER) | payer MEDICARE, MEDICAID, OTHER, SELFPAY ==
[2020-05-16 06:00] VITALS: BMI 38.0
[2020-05-20] VITALS (10 sets, daily range): BP systolic 148–199; BP diastolic 74–112; PULSE 73–92; RESP 17–27; TEMP 36.9; O2SAT 92–100; BMI 37.6
--- NOTE | 2020-05-20 01:00 | ED_ITS ---
HPI - Dizziness General Chief Complaint: Hypertension Stated Complaint: high blood pressure Time Seen by Provider: 05/20/20 00:50 Source: patient Mode of arrival: Ambulatory Limitations: no limitations History of Present Illness HPI Narrative: 74-year-old male daily smoker with AFib and hypertension presents with a chief complaint of significantly elevated blood pressure at ranging from the 220s over 120s. He is symptomatic and complains of headache, dizziness as well as nausea. He was recently seen and evaluated under similar circumstances and admitted for hypertensive emergency and placed on nicardipine drip. He was stabilized overnight and discharged home on metoprolol and hydrochlorothiazide. He did find well until his pressure started creeping up again on Thursday, at which point he called his PCP and was encouraged to increase from 12.5-25 mg of both hydrochlorothiazide and metoprolol. Over the course of the day his blood pressure was slowly rising and he became symptomatic once he got above 170s and 180s. He denies any chest pain or shortness of breath. MD complaint: dizziness Onset (ago): hour(s) Timing: gradual onset Description: lightheadedness History of similar episodes: Yes History of trauma: No Severity: moderate Relieving factors: nothing Exacerbating factors: nothing Associated symptoms: nausea Related Data Home Medications Medication Instructions Recorded Confirmed aspirin 325 mg PO DAILY 08/05/19 05/16/20 metoprolol tartrate 12.5 mg PO BID 05/16/20 05/16/20 Previous Rx's Medication Instructions Recorded hydrochlorothiazide 12.5 mg PO DAILY 30 Days #30 tab 05/16/20 hydralazine 10 mg PO QID PRN #20 tab 05/20/20 Allergies Allergy/AdvReac Type Severity Reaction Status Date / Time No Known Drug Allergies Allergy Verified 07/04/18 09:21 Review of Systems Constitutional Constitutional: Denies chills, Denies fatigue, Denies fever(s), Denies frequent falls, Reports headache(s), Denies lethargy and Denies weakness Eyes Eyes: Denies change in vision, Denies eye discharge, Denies irritation and Denies loss of vision ENT Ears, Nose, Mouth, and Throat: Denies change in voice, Denies dizziness, Reports headache(s), Denies neck pain, Denies sore throat and Denies throat swelling Cardiovascular Cardiovascular: Denies chest pain, Denies irregular heart rhythm, Denies lightheadedness, Denies palpitations, Denies dyspnea, Denies dyspnea on exertion and Denies orthopnea Respiratory Respiratory: Denies cough, Denies dyspnea, Denies dyspnea on exertion and Denies wheezing Gastrointestinal Gastrointestinal: Denies abdominal pain, Denies change in bowel habits, Denies diarrhea, Reports nausea and Denies vomiting Musculoskeletal Musculoskeletal: Denies neck pain and Denies numbness Integumentary/Breasts Skin/Breast: Denies pruritus, Denies erythema, Denies rash and Denies wounds Neurologic Neurologic: Denies behavioral changes, Denies confusion, Denies dizziness, Denies frequent falls, Reports headache(s), Denies loss of vision, Denies numbness and Denies weakness Psychiatric Psychiatric: Denies anxiety, Denies behavioral changes, Denies confusion, Denies depression, Denies homicidal ideation and Denies suicidal ideation Endocrine Endocrine: Denies fatigue, Denies flushing and Denies palpitations Hematologic/Lymphatic Hematologic/Lymphatic: Denies easy bruising Allergic/Immunologic Allergic/Immunologic: Denies urticaria, Denies throat swelling and Denies wheezing Patient History Medical History Atrial fibrillation (Acute) Congestive heart failure (Acute) Hypertensive urgency (Acute) Tobacco dependence (Acute) Surgical History H/O skin graft (Acute) S/P TURP (Acute) Status post knee surgery Total knee replacement status (Acute) Family History Mother CVA (cerebral vascular accident) Myocardial infarct Father Diabetes mellitus Social History household members: none Smoking Status: Current every day smoker Smoking Status: Current every day smoker alcohol intake frequency: a few times a month Alcohol type: hard liquor Substance Use Type: does not use Exam Narrative Exam Narrative: GENERAL: [74] year old patient appears stated age. Well- nourished, well-developed patient, in mild distress. HEAD: Atraumatic. Normocephalic. EYES: Pupils equal round and reactive. Extraocular motions intact. No scleral icterus. No injection or drainage. ENT: Nose without bleeding, purulent drainage. Throat without erythema, tonsillar hypertrophy or exudate. Airway patent. NECK: Trachea midline. Non tender CARDIOVASCULAR: Irregular rate, irregular rhythm without murmurs, gallops, or rubs. RESPIRATORY: Clear to auscultation. Breath sounds equal bilaterally. No wheezes, rales, or rhonchi. GASTROINTESTINAL: Abdomen soft, non-tender, nondistended. EXTREMITIES: No edema or joint tenderness. BACK: Nontender without deformity or crepitance. No flank tenderness. NEURO: AOx3. SKIN: No rash or erythema of visible areas Initial Vital Signs Initial Vital Signs: Vital Signs Pulse Rate 79 05/20/20 00:55 Pulse Oximetry 100 05/20/20 00:55 Course Orders Ordered: ED Orders 05/20/20 00:52 EKG-12 Lead Routine 05/20/20 01:01 XR chest 1V Stat 05/20/20 01:12 Complete Blood Count AUTO DIFF Stat Comprehensive Metabolic Panel Stat Lipase Stat NT-proBNP (BNP-Adult 18+) Stat Troponin & CK Cardiac Panel Stat Sodium Chloride (Normal Saline 0.9%) 1,000 mls @ 150 mls/hr IV CONT HONG Last Admin: 05/20/20 01:20 Dose: 150 mls/hr Documented by: ABE Discontinued Medications Hydralazine HCl (Apresoline) 10 mg IV NOW ONE Stop: 05/20/20 01:02 Last Admin: 05/20/20 01:20 Dose: 10 mg Documented by: ABE Vital Signs Vital signs: Vital Signs - 8 hr 05/20/20 00:55 05/20/20 00:58 05/20/20 01:00 Temperature 98.4 F Pulse Rate 79 76 78 Respiratory Rate 17 24 Blood Pressure 183/112 H Pulse Oximetry 100 100 100 05/20/20 01:01 05/20/20 01:21 05/20/20 01:30 Temperature Pulse Rate 76 80 92 H Respiratory Rate 22 27 H 25 H Blood Pressure 199/97 H 179/96 H Pulse Oximetry 100 92 98 05/20/20 01:31 05/20/20 02:00 05/20/20 02:01 Temperature Pulse Rate 73 89 77 Respiratory Rate 25 H 18 25 H Blood Pressure 160/74 H 148/90 H Pulse Oximetry 99 98 97 05/20/20 02:30 Temperature Pulse Rate 79 Respiratory Rate 21 Blood Pressure Pulse Oximetry MDM - Dizziness Lab Data Result diagrams: 05/20/20 01:12 05/20/20 01:12 Labs: Lab Results 05/20/20 05/20/20 05/20/20 Range/Units 01:12 01:12 01:12 WBC 10.1 (4.5-11.0) X10^3/uL RBC 4.37 L (4.5-5.9) X10^6/uL Hgb 14.4 (13.5-17.5) g/dL Hct 42.0 (41-53) % MCV 96.1 (80-100) fL MCH 33.0 (26-34) PG MCHC 34.3 (30-36) % RDW 12.9 (11.6-14.8) % Plt Count 175 (150-400) X10^3/uL Neut % (Auto) 53.6 (50-75) % Lymph % (Auto) 32.0 (25-40) % [place] % (Auto) 10.3 (3-14) % Eos % (Auto) 3.7 (2-4) % Baso % (Auto) 0.4 (0-2) % Neut # (Auto) 5400 (4142-4911) /uL Lymph # (Auto) 3200 (8912-1402) /uL [place] # (Auto) 1000 H (0-900) /uL Eos # (Auto) 400 (0-450) /uL Baso # (Auto) 0 (0-100) /uL Sodium 138 (137-145) mmol/L Potassium 3.7 (3.4-5.1) mmol/L Chloride 107 (98-107) mmol/L Carbon Dioxide 25 (22-32) mmol/L BUN 22 H (9-20) mg/dL Creatinine 0.81 (0.66-1.25) mg/dL Estimated GFR > 60.0 (>60) mL/min BUN/Creatinine Ratio 27.2 H (6-22) Glucose 113 H (80-110) mg/dL Calcium 9.6 (8.4-10.2) mg/dL Total Bilirubin 0.6 (0.2-1.3) mg/dL AST 26 (17-59) IU/L ALT 23 (<50) IU/L Alkaline Phosphatase 69 (38-126) U/L Total Creatine Kinase 147 (55-170) U/L CK-MB (CK-2) 3.22 H (<2.37) ng/mL CK-MB (CK-2) Rel Index 2.2 (1.5-5.0) % Troponin I < 0.012 (0.01-0.034) ng/mL NT-Pro-B Natriuret Pep 450 H (<125) pg/mL Total Protein 7.1 (6.3-8.2) g/dL Albumin 4.2 (3.5-5.0) g/dL Globulin 2.9 (1.7-4.1) g/dL Albumin/Globulin Ratio 1.4 (1.0-2.8) Lipase 128 (23-300) U/L ECG Data Attestation: I personally reviewed and interpreted this ECG as follows: Prior ECG tracings: available for review Interpretation: Atrial fibrillation rate 68. No ST elevations or depressions, No T wave inversions. MDM Narrative Medical decision making narrative: Patient BP has dropped to the 140s after hydralazine and remained there for nearly two hours. Labs, exam, EKG, and CXR are very reassuring. Patient has had questions answered to his apparent satisfaction and understands return precautions based on his ability to repeat them back to me. Discharge Plan Departure Patient Disposition: Home Clinical Impression: Hypertension Qualifiers: Hypertension type: unspecified Qualified Code(s): I10 - Essential (primary) hypertension Instructions: DI for High Blood Pressure Activity Restrictions/Additional Instructions: *You have been diagnosed with [ hypertension ] *What to do: *Take medications as directed: I've sent a prescription to [facility] for the blood pressure we gave you tonight, to be used as needed and in addition to the other blood pressure meds you are on *Follow up with your primary care provider in 2-3 days, call Thursday morning for an appointment. Let them know you were seen in the Emergency Department and that we ask that you be seen in follow up *Return to ER if you should have any new, worsening or concerning symptoms Prescriptions: New hydralazine 10 mg tablet 10 mg PO QID PRN (Reason: hypertension) Qty: 20 RF: 0 No Action metoprolol tartrate 25 mg Tablet 12.5 mg PO BID RF: 0 hydrochlorothiazide 12.5 mg tablet 12.5 mg PO DAILY 30 Days Qty: 30 RF: 0 aspirin 325 mg Tablet 325 mg PO DAILY RF: 0 Referrals: Linda Melendez MD [Primary Care Provider] -
--- NOTE | 2020-05-20 01:01 | DI.RAD.S_ITS ---
PROCEDURE: XR CHEST 1V INDICATIONS: HYPERTENSION TECHNIQUE: One view of the chest was acquired. COMPARISON: [facility], CR, XR CHEST 1V, 05/15/2020, 22:41. [facility], CR, XR CHEST 1V, 11/08/2019, 13:42. FINDINGS: Surgical changes and devices: None. Lungs and pleura: Lungs are clear. No pleural effusions or pneumothorax. Mediastinum: Mediastinal contours appear normal. Heart size is normal. Bones and chest wall: No suspicious bony lesions. Overlying soft tissues appear unremarkable. IMPRESSION: Normal for age, source of hypertension is not seen.. Dictated by: Ronnie Hebert M.D. on 05/20/2020 at 7:39 Approved by: Ronnie Hebert M.D. on 05/20/2020 at 7:39
[2020-05-20 01:20] LABS: Add Manual Diff / Slide Review NO; Basophils Absolute Auto 0 /uL (0-100); Basophils Percent Auto 0.4 % (0-2); Eosinophils Absolute Auto 400 /uL (0-450); Eosinophils Percent Auto 3.7 % (2-4); Hemoglobin 14.4 g/dL (13.5-17.5); Lymphocytes Absolute Auto 3200 /uL (1100-4500); Mean Corpuscular HGB Conc 34.3 % (30-36); Mean Corpuscular Volume 96.1 fL (80-100); Monocytes Absolute Auto 1000 /uL (0-900); Monocytes Percent Auto 10.3 % (3-14); Neutrophils Absolute Auto 5400 /uL (1500-7000); Neutrophils Percent Auto 53.6 % (50-75); Platelet Count 175 X10^3/uL (150-400); Red Blood Cell Count 4.37 X10^6/uL (4.5-5.9); Red Cell Distribution Width 12.9 % (11.6-14.8); White Blood Cell Count 10.1 X10^3/uL (4.5-11.0)
[2020-05-20] MEDS: SODIUM CHLORIDE 0.9% 1,000 ML 150 ML IV (01:20)
[2020-05-20] MEDS: HYDRALAZINE 20 MG/ML VIAL 10 MG IV (01:20)
[2020-05-20 01:28] LABS: Alanine Aminotransferase 23 IU/L (<50); Albumin 4.2 g/dL (3.5-5.0); Albumin Globulin Ratio 1.4 (1.0-2.8); Alkaline Phosphatase 69 U/L (38-126); Aspartate Aminotransferase 26 IU/L (17-59); BUN Creatinine Ratio 27.2 (6-22); Bilirubin Total 0.6 mg/dL (0.2-1.3); Blood Urea Nitrogen 22 mg/dL (9-20); Calcium 9.6 mg/dL (8.4-10.2); Carbon Dioxide 25 mmol/L (22-32); Chloride 107 mmol/L (98-107); Creatine Kinase 147 U/L (55-170); Estimated Glomerular Filt Rate > 60.0 mL/min (>60); Globulin 2.9 g/dL (1.7-4.1); Glucose 113 mg/dL (80-110); HEMOLYSIS < 15 (0-50); Lipase 128 U/L (23-300); Potassium 3.7 mmol/L (3.4-5.1); Sodium 138 mmol/L (137-145); Total Protein 7.1 g/dL (6.3-8.2)
[2020-05-20 01:36] LABS: NT-proBNP (BNP-Adult 18+) 450 pg/mL (<125)
[2020-05-20 01:39] LABS: Troponin I < 0.012 ng/mL (0.01-0.034)
[2020-05-20 01:43] LABS: CKMB % Relative Index 2.2 % (1.5-5.0); Creatine Kinase MB 3.22 ng/mL (<2.37)
== END 2020-05-20 02:40 | disposition home or self-care (01) ==
PROVIDERS: Emergency Provider Emergency Medicine; PCP Family Medicine
DX: I10 Essential (primary) hypertension (principal); R42 Dizziness and giddiness; R51 Headache; R11.0 Nausea; I48.91 Unspecified atrial fibrillation; Z79.82 Long term (current) use of aspirin
CPT/HCPCS: 36415; 71045; 80053; 82550; 82553; 83690; 83880; 84484; 85025; 93005; 96361; 96374; 99284; J0360

== ENCOUNTER → 2020-05-21 13:25 | Outpatient (CLI) | payer MEDICARE, MEDICAID, OTHER, SELFPAY ==
[2020-05-16 06:00] VITALS: BMI 38.0
[2020-05-23 20:07] LABS: Creatinine, 24 Urine 1379 mg/24 hr (1000-2000); Creatinine,Urine 95.1 mg/dL (Not Estab.); Dopamine, Ur 24hr 278 ug/24 hr (0-510); Epinephrine, U 24hr 6 ug/24 hr (0-20); Norepinephrine Ur 24hr 65 ug/24 hr (0-135)
[2020-05-26 06:14] LABS: Creatinine, Urine 100.5 mg/dL (Not Estab.); Homovanillic Acid/Creatinine 1.9 (0.0-7.6); Vanillylmandelic Acid Ur 1.7 mg/L (Undefined)
== END ==
PROVIDERS: PCP Family Medicine; Referring Provider Family Medicine; Visit Provider Family Medicine
DX: I10 Essential (primary) hypertension (principal)
CPT/HCPCS: 82384; 82570; 83150; 84585

== ENCOUNTER 2020-11-22 06:46 | Observation (INO) | payer MEDICARE, MEDICAID, OTHER, SELFPAY ==
[2020-05-16 06:00] VITALS: BMI 38.0
[2020-11-22] VITALS (25 sets, daily range): BP systolic 131–220; BP diastolic 74–109; PULSE 64–106; RESP 14–33; TEMP 36.6–37.2; O2SAT 93–100; BMI 38.5
--- NOTE | 2020-11-22 07:18 | ED.CHESTPAIN ---
HPI - Chest Pain General Chief Complaint: Chest Pain Stated Complaint: stomach/heart pain/has afib Time Seen by Provider: 11/22/20 06:56 Source: patient Mode of arrival: Ambulatory Limitations: no limitations History of Present Illness HPI narrative: The patient is a 75-year-old male with history of atrial fibrillation on aspirin, hypertension presenting today with chest pain and abdominal pain. He says he was in his chair when he had some right sided abdominal pain which woke him from his sleep. It radiated to his epigastric area and then up into his chest. Says he feels nauseous at times he has not yet vomited. He has not had pain like this in the past. He currently does not have chest pain. No shortness of breath or fever. MD complaint: chest pain and other (Abdominal pain) Onset (ago): hour(s) Duration: now resolved Onset: during rest Pain location: epigastric Quality: sharp Pain radiation: none Relieving factors: nothing Related Data Home Medications Medication Instructions Recorded Confirmed aspirin 325 mg PO DAILY 08/05/19 05/16/20 metoprolol tartrate 12.5 mg PO BID 05/16/20 05/16/20 Previous Rx's Medication Instructions Recorded hydralazine 10 mg PO QID PRN #20 tab 05/20/20 Allergies Allergy/AdvReac Type Severity Reaction Status Date / Time morphine Allergy Swelling Verified 11/22/20 09:19 of Lip/Tongue/Throat Review of Systems Review of Systems ROS Unobtainable: All systems reviewed & are unremarkable except as noted in HPI and below Constitutional Constitutional: Denies chills, Denies fever(s), Denies lethargy and Denies weakness Eyes Eyes: Denies change in vision, Denies eye discharge, Denies irritation and Denies loss of vision Cardiovascular Cardiovascular: Reports as per HPI, Denies dyspnea and Denies dyspnea on exertion Respiratory Respiratory: Denies cough, Denies dyspnea, Denies dyspnea on exertion and Denies wheezing Gastrointestinal Gastrointestinal: Reports as per HPI, Reports abdominal pain, Denies constipation, Reports nausea and Denies vomiting Musculoskeletal Musculoskeletal: Denies back pain, Denies myalgias and Denies deformity Integumentary/Breasts Skin/Breast: Denies pruritus, Denies erythema, Denies rash and Denies wounds Neurologic Neurologic: Denies loss of vision and Denies weakness Allergic/Immunologic Allergic/Immunologic: Denies wheezing Patient History Medical History (Updated 11/22/20 @ 10:33 by Daniela Mtz DO) Atrial fibrillation Congestive heart failure Hypertensive urgency Tobacco dependence Surgical History H/O skin graft S/P TURP Status post knee surgery Total knee replacement status Family History Mother CVA (cerebral vascular accident) Myocardial infarct Father Diabetes mellitus Social History household members: none Smoking Status: Current every day smoker Smoking Status: Current every day smoker alcohol intake frequency: a few times a month Alcohol type: hard liquor Substance Use Type: does not use Exam Initial Vital Signs Initial Vital Signs: Vital Signs Temperature 98 F 11/22/20 06:57 Pulse Rate 76 11/22/20 06:57 Respiratory Rate 26 H 11/22/20 06:57 Blood Pressure 186/100 H 11/22/20 06:57 Pulse Oximetry 100 11/22/20 06:57 GENERAL: Alert overweight male in no acute distress and in no acute distress. HEENT: Head atraumatic,EOMI, pupils reactive, face symmetric, moist mucous membranes CARDIOVASCULAR: Regular rate and rhythm without murmurs, rubs or gallops. RESPIRATORY: Breath sounds equal bilaterally, no wheezes rales or rhonchi. ABDOMEN: Soft, obese tender hydrocodone quadrant positive Yi sign EXTREMITIES: Normal range of motion, no clubbing or edema. Neurovascularly intact NEUROLOGICAL: Alert and oriented x4.Normal gait and speech. Cranial nerves II through XII grossly intact. SKIN: Warm, dry, no laceration, no petechiae, no rashes or lesions. Course Orders Ordered: ED Orders 11/22/20 06:56 EKG-12 Lead Routine 11/22/20 07:15 Complete Blood Count AUTO DIFF Stat Comprehensive Metabolic Panel Stat Lipase Stat NT-proBNP (BNP-Adult 18+) Stat Partial Thromboplastin Time Stat Prothrombin Time INR Stat Troponin & CK Cardiac Panel Stat 11/22/20 07:23 US abdomen limited Stat 11/22/20 07:24 XR chest 1V Stat 11/22/20 09:05 COVID19 Stat 11/22/20 10:25 CT angio chest abdomen pelvis Stat 11/22/20 10:33 Consult to General Surgery Stat Sodium Chloride (Normal Saline 0.9%) 1,000 mls @ 150 mls/hr IV CONT HONG Last Admin: 11/22/20 07:43 Dose: 150 mls/hr Documented by: MARYSE Discontinued Medications Diphenhydramine HCl (Diphenhydramine 50 Mg/Ml Vial) 25 mg IV NOW ONE Stop: 11/22/20 09:23 Last Admin: 11/22/20 09:26 Dose: 25 mg Documented by: FITO Epinephrine HCl (Epinephrine 1 Mg/Ml) 0.3 mg IM NOW ONE Stop: 11/22/20 09:24 Last Admin: 11/22/20 09:27 Dose: 0.3 mg Documented by: FITO Hydromorphone HCl (Hydromorphone 0.5 Mg Inj) 0.5 mg IV NOW ONE Stop: 11/22/20 09:49 Last Admin: 11/22/20 09:51 Dose: 0.5 mg Documented by: FITO Hydromorphone HCl (Hydromorphone 0.5 Mg Inj) 0.5 mg IV NOW ONE Stop: 11/22/20 10:01 Last Admin: 11/22/20 10:44 Dose: 0.5 mg Documented by: DILCIA Piperacillin/Tazobactam/Dextrose (Zosyn) 3.375 gm in 50 mls @ 100 mls/hr IV NOW ONE Stop: 11/22/20 10:55 Last Admin: 11/22/20 10:44 Dose: 100 mls/hr Documented by: DILCIA Ketorolac Tromethamine (Ketorolac 60 Mg/2 Ml Vial) 15 mg IV NOW ONE Stop: 11/22/20 09:38 Last Admin: 11/22/20 09:40 Dose: 15 mg Documented by: FITO Methylprednisolone (Methylprednisolone 40 Mg/Ml Vial) 125 mg IV NOW ONE Stop: 11/22/20 09:23 Last Admin: 11/22/20 09:27 Dose: Not Given Documented by: FITO Methylprednisolone (Methylprednisolone 125 Mg/2 Ml Vial) 125 mg IV NOW ONE Stop: 11/22/20 09:29 Last Admin: 11/22/20 09:30 Dose: 125 mg Documented by: FITO Morphine Sulfate (Morphine 4 Mg/Ml Inj) 4 mg IV NOW ONE Stop: 11/22/20 08:57 Last Admin: 11/22/20 09:01 Dose: 4 mg Documented by: FITO Ondansetron HCl (Ondansetron 4 Mg/2 Ml Inj) 4 mg IV NOW ONE Stop: 11/22/20 07:25 Last Admin: 11/22/20 07:43 Dose: 4 mg Documented by: MARYSE Vital Signs Vital signs: Vital Signs - 8 hr 11/22/20 06:57 11/22/20 07:14 11/22/20 07:30 Temperature 98 F Pulse Rate 76 70 78 Respiratory Rate 26 H 15 17 Blood Pressure 186/100 H Pulse Oximetry 100 99 99 11/22/20 07:31 11/22/20 08:00 11/22/20 08:01 Temperature Pulse Rate 78 74 71 Respiratory Rate 28 H 14 21 Blood Pressure 220/88 H 174/85 H Pulse Oximetry 98 99 100 11/22/20 08:30 11/22/20 09:00 11/22/20 09:30 Temperature Pulse Rate 76 75 87 Respiratory Rate 25 H 24 33 H Blood Pressure 191/102 H Pulse Oximetry 100 99 94 11/22/20 09:32 11/22/20 10:00 11/22/20 10:15 Temperature Pulse Rate 96 H 106 H 98 H Respiratory Rate 31 H 29 H 23 Blood Pressure 182/107 H 201/98 H 185/85 H Pulse Oximetry 95 95 93 11/22/20 10:30 Temperature Pulse Rate 81 Respiratory Rate 25 H Blood Pressure 172/109 H Pulse Oximetry 96 MDM - Chest Pain Lab Data Attestation: I reviewed the patient's lab results. Result diagrams: 11/22/20 07:15 11/22/20 07:15 Labs: Lab Results 11/22/20 11/22/20 11/22/20 Range/Units 07:15 07:15 07:15 WBC 10.3 (4.5-11.0) X10^3/uL RBC 4.27 L (4.5-5.9) X10^6/uL Hgb 13.9 (13.5-17.5) g/dL Hct 40.5 L (41-53) % MCV 94.8 (80-100) fL MCH 32.4 (26-34) PG MCHC 34.2 (30-36) % RDW 13.7 (11.6-14.8) % Plt Count 151 (150-400) X10^3/uL Neut % (Auto) 67.5 (50-75) % Lymph % (Auto) 20.3 L (25-40) % [place] % (Auto) 8.8 (3-14) % Eos % (Auto) 2.9 (2-4) % Baso % (Auto) 0.5 (0-2) % Neut # (Auto) 7000 (7816-1390) /uL Lymph # (Auto) 2100 (3735-3227) /uL [place] # (Auto) 900 (0-900) /uL Eos # (Auto) 300 (0-450) /uL Baso # (Auto) 100 (0-100) /uL PT 12.0 (10.1-12.7) SECONDS INR 1.0 (0.9-1.3) APTT 30 (26.4-36.2) SECONDS Sodium 138 (137-145) mmol/L Potassium 4.1 (3.4-5.1) mmol/L Chloride 108 H (98-107) mmol/L Carbon Dioxide 24 (22-32) mmol/L BUN 15 (9-20) mg/dL Creatinine 0.81 (0.66-1.25) mg/dL Estimated GFR > 60.0 (>60) mL/min BUN/Creatinine Ratio 18.5 (6-22) Glucose 105 (80-110) mg/dL Calcium 8.6 (8.4-10.2) mg/dL Total Bilirubin 0.4 (0.2-1.3) mg/dL AST 24 (17-59) IU/L ALT 21 (<50) IU/L Alkaline Phosphatase 70 (38-126) U/L Total Creatine Kinase 100 (55-170) U/L CK-MB (CK-2) TNP CK-MB (CK-2) Rel Index TNP Troponin I < 0.012 (0.01-0.034) ng/mL NT-Pro-B Natriuret Pep 1230 H (<450) pg/mL Total Protein 6.6 (6.3-8.2) g/dL Albumin 3.6 (3.5-5.0) g/dL Globulin 3.0 (1.7-4.1) g/dL Albumin/Globulin Ratio 1.2 (1.0-2.8) Lipase 103 (23-300) U/L SARS-CoV-2 (PCR) (Negative) 11/22/20 Range/Units 09:05 WBC (4.5-11.0) X10^3/uL RBC (4.5-5.9) X10^6/uL Hgb (13.5-17.5) g/dL Hct (41-53) % MCV (80-100) fL MCH (26-34) PG MCHC (30-36) % RDW (11.6-14.8) % Plt Count (150-400) X10^3/uL Neut % (Auto) (50-75) % Lymph % (Auto) (25-40) % [place] % (Auto) (3-14) % Eos % (Auto) (2-4) % Baso % (Auto) (0-2) % Neut # (Auto) (8842-0806) /uL Lymph # (Auto) (9172-7974) /uL [place] # (Auto) (0-900) /uL Eos # (Auto) (0-450) /uL Baso # (Auto) (0-100) /uL PT (10.1-12.7) SECONDS INR (0.9-1.3) APTT (26.4-36.2) SECONDS Sodium (137-145) mmol/L Potassium (3.4-5.1) mmol/L Chloride (98-107) mmol/L Carbon Dioxide (22-32) mmol/L BUN (9-20) mg/dL Creatinine (0.66-1.25) mg/dL Estimated GFR (>60) mL/min BUN/Creatinine Ratio (6-22) Glucose (80-110) mg/dL Calcium (8.4-10.2) mg/dL Total Bilirubin (0.2-1.3) mg/dL AST (17-59) IU/L ALT (<50) IU/L Alkaline Phosphatase (38-126) U/L Total Creatine Kinase (55-170) U/L CK-MB (CK-2) CK-MB (CK-2) Rel Index Troponin I (0.01-0.034) ng/mL NT-Pro-B Natriuret Pep (<450) pg/mL Total Protein (6.3-8.2) g/dL Albumin (3.5-5.0) g/dL Globulin (1.7-4.1) g/dL Albumin/Globulin Ratio (1.0-2.8) Lipase (23-300) U/L SARS-CoV-2 (PCR) Negative (Negative) Imaging Data Chest x-ray: Radiologist's Impression: PROCEDURE: XR CHEST 1V INDICATIONS: chest pain TECHNIQUE: One view of the chest was acquired. COMPARISON: [facility], CR, XR CHEST 1V, 05/20/2020, 1:05. [facility], CR, XR CHEST 1V, 05/15/2020, 22:41. FINDINGS: Surgical changes and devices: None. Lungs and pleura: Lungs are clear considering reduced inspiratory volume. No pleural effusions or pneumothorax. Mediastinum: Mediastinal contours appear normal. Heart size is at the upper limits of normal, in the setting of reduced inspiratory volume. Bones and chest wall: No suspicious bony lesions. Overlying soft tissues appear unremarkable. 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 Heart size is at the upper limits of normal. No definite acute disease is found. 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 Dictated by: Ronnie Hebert M.D. on 11/22/2020 at 8:25 US - abdomen: Radiologist's Impression: PROCEDURE: US ABDOMEN LIMITED INDICATIONS: RIGHT UPPER QUADRANT PAIN TECHNIQUE: Real-time focused scanning was performed of the abdomen, with image documentation. COMPARISON: Prior CT Abdo 06/13/20. FINDINGS: Quality of visualization somewhat limited by body habitus. Liver echotexture is increased consistent with fatty infiltration, the liver size i is enlarged at 19.9 cm craniocaudad. The gallbladder contains calculi, but the gallbladder wall is normal in thickness at 2.4 mm. There is tenderness during sonographic palpation of the gallbladder but no adjacent pericholecystic free fluid. Several gallstones are nonmobile at the gallbladder neck the largest of which measures 1.5 cm. IMPRESSION: Cholecystitis likely is present given the presence of gallstones within the gallbladder neck which are nonmobile and focal tenderness during sonographic palpation in this area. The gallbladder wall is not thickened, however. Hepatomegaly with fatty infiltration, relatively limited quality visualization due to body habitus. No ascites seen. Dictated by: Ronnie Hebert M.D. on 11/22/2020 at 8:22 ECG Data Attestation: I personally reviewed and interpreted this ECG as follows: Interpretation: Atrial fibrillation rate [address] changes or T-wave inversions MDM Narrative Medical decision making narrative: The patient is having positive right upper quadrant pain concerning for cholecystitis. Ultrasound does confirm that he has gallstones but no thickening of the gallbladder wall. Patient received morphine for pain he suddenly had some dizziness and chest discomfort felt like he could not breathe. He had no swelling of his lips or tongue. He was treated for anaphylactic reaction with epinephrine, Solu-Medrol and Benadryl. Those symptoms seem to improve. However he started having intense severe pain in his right upper quadrant. Concern for possible other etiology as well. CT angio ordered. Patient is given Toradol and Dilaudid. Patient feels the need to stand up to ease his pain. Patient did not have reaction to Dilaudid. Dr. Louie updated on patient's test results in symptoms CT still pending at this time. Based on patient's medical history request patient be admitted to the hospitalist service. Recommend clear liquids at this time recommends Zosyn as well. Dr. brunson accepts admission Discharge Plan Departure Patient Disposition: Admitted As Inpatient Clinical Impression: Acute calculous cholecystitis Admit Date/Time: 11/22/20 10:33 Admit Provider: Rachael Brunson
--- NOTE | 2020-11-22 07:23 | DI.US.S_ITS ---
PROCEDURE: US ABDOMEN LIMITED INDICATIONS: RIGHT UPPER QUADRANT PAIN TECHNIQUE: Real-time focused scanning was performed of the abdomen, with image documentation. COMPARISON: Prior CT Abdo 06/13/20. FINDINGS: Quality of visualization somewhat limited by body habitus. Liver echotexture is increased consistent with fatty infiltration, the liver size i is enlarged at 19.9 cm craniocaudad. The gallbladder contains calculi, but the gallbladder wall is normal in thickness at 2.4 mm. There is tenderness during sonographic palpation of the gallbladder but no adjacent pericholecystic free fluid. Several gallstones are nonmobile at the gallbladder neck the largest of which measures 1.5 cm. IMPRESSION: Cholecystitis likely is present given the presence of gallstones within the gallbladder neck which are nonmobile and focal tenderness during sonographic palpation in this area. The gallbladder wall is not thickened, however. Hepatomegaly with fatty infiltration, relatively limited quality visualization due to body habitus. No ascites seen. Dictated by: Ronnie Hebert M.D. on 11/22/2020 at 8:22 Approved by: Ronnie Hebert M.D. on 11/22/2020 at 8:24
--- NOTE | 2020-11-22 07:24 | DI.RAD.S_ITS ---
PROCEDURE: XR CHEST 1V INDICATIONS: chest pain TECHNIQUE: One view of the chest was acquired. COMPARISON: [facility], CR, XR CHEST 1V, 05/20/2020, 1:05. [facility], CR, XR CHEST 1V, 05/15/2020, 22:41. FINDINGS: Surgical changes and devices: None. Lungs and pleura: Lungs are clear considering reduced inspiratory volume. No pleural effusions or pneumothorax. Mediastinum: Mediastinal contours appear normal. Heart size is at the upper limits of normal, in the setting of reduced inspiratory volume. Bones and chest wall: No suspicious bony lesions. Overlying soft tissues appear unremarkable. 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 Heart size is at the upper limits of normal. No definite acute disease is found. 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 Dictated by: Ronnie Hebert M.D. on 11/22/2020 at 8:25 Approved by: Ronnie Hebert M.D. on 11/22/2020 at 8:26
[2020-11-22 07:31] LABS: Add Manual Diff / Slide Review NO; Basophils Absolute Auto 100 /uL (0-100); Basophils Percent Auto 0.5 % (0-2); Eosinophils Absolute Auto 300 /uL (0-450); Eosinophils Percent Auto 2.9 % (2-4); Hematocrit 40.5 % (41-53); Hemoglobin 13.9 g/dL (13.5-17.5); Lymphocytes Absolute Auto 2100 /uL (1100-4500); Lymphocytes Percent Auto 20.3 % (25-40); Mean Corpuscular HGB Conc 34.2 % (30-36); Mean Corpuscular Hemoglobin 32.4 PG (26-34); Mean Corpuscular Volume 94.8 fL (80-100); Monocytes Absolute Auto 900 /uL (0-900); Monocytes Percent Auto 8.8 % (3-14); Neutrophils Absolute Auto 7000 /uL (1500-7000); Neutrophils Percent Auto 67.5 % (50-75); Platelet Count 151 X10^3/uL (150-400); Red Blood Cell Count 4.27 X10^6/uL (4.5-5.9); Red Cell Distribution Width 13.7 % (11.6-14.8); White Blood Cell Count 10.3 X10^3/uL (4.5-11.0)
[2020-11-22 07:35] LABS: PTT Partial Thromboplastin Tim 30 SECONDS (26.4-36.2)
[2020-11-22 07:36] LABS: Alanine Aminotransferase 21 IU/L (<50); Albumin 3.6 g/dL (3.5-5.0); Albumin Globulin Ratio 1.2 (1.0-2.8); Alkaline Phosphatase 70 U/L (38-126); Aspartate Aminotransferase 24 IU/L (17-59); BUN Creatinine Ratio 18.5 (6-22); Bilirubin Total 0.4 mg/dL (0.2-1.3); Blood Urea Nitrogen 15 mg/dL (9-20); Calcium 8.6 mg/dL (8.4-10.2); Carbon Dioxide 24 mmol/L (22-32); Chloride 108 mmol/L (98-107); Creatine Kinase 100 U/L (55-170); Estimated Glomerular Filt Rate > 60.0 mL/min (>60); Glucose 105 mg/dL (80-110); HEMOLYSIS 18 (0-50); Lipase 103 U/L (23-300); Potassium 4.1 mmol/L (3.4-5.1); Sodium 138 mmol/L (137-145); Total Protein 6.6 g/dL (6.3-8.2)
[2020-11-22] MEDS: ONDANSETRON 4 MG/2 ML INJ IV (07:43)
[2020-11-22] MEDS: SODIUM CHLORIDE 0.9% 1,000 ML 150 ML IV (07:43)
[2020-11-22 07:48] LABS: NT-proBNP (BNP-Adult 18+) 1230 pg/mL (<450); Troponin I < 0.012 ng/mL (0.01-0.034)
--- NOTE | 2020-11-22 08:24 | PC.NURSE ---
pt states pain started in rt abd and woke him up. then pt started having chest pain and came in.
[2020-11-22] MEDS: MORPHINE 4 MG/ML INJ IV (09:01)
--- NOTE | 2020-11-22 09:18 | PC.NURSE ---
pt called out, nurse when i came in he said he feels like he's choking, like he can't breath another nurse brought in the anaphylaxis kit. dr garcia to bedside, 25mg benadryl iv, 125mg solumedrol iv and epi 0.3 IM. pt states he's feeling better. airway remained clear.
[2020-11-22] MEDS: diphenhydrAMINE 50 MG/ML VIAL 25 MG IV (09:26)
[2020-11-22] MEDS: EPINEPHrine 1 MG/ML 0.3 MG IM (09:27)
[2020-11-22] MEDS: methylPREDNISolone 125 MG/2 ML VIAL IV (09:30)
[2020-11-22] MEDS: KETOROLAC 60 MG/2 ML VIAL 15 MG IV (09:40)
[2020-11-22 09:46] LABS: COVID19 -Nasal RAPID Negative (Negative)
--- NOTE | 2020-11-22 09:49 | PC.NURSE ---
pt states his pain is getting worse, dr. garcia at bedside, orders noted.
[2020-11-22] MEDS: HYDROMORPHONE 0.5 MG INJ IV ×2 (09:51→10:44)
--- NOTE | 2020-11-22 10:25 | DI.CT.S_ITS ---
PROCEDURE: CT ANGIO CHEST ABDOMEN PELVIS INDICATIONS: severe back pain TECHNIQUE: Precontrast 5 mm thick sections acquired from the lung apices to the iliac crests. After the administration of intravenous contrast, 2.5 mm thick sections again acquired from the lung apices to the iliac crests. Maximum intensity projection (MIP) oblique sagittal and coronal reformats were then acquired. For radiation dose reduction, the following was used: automated exposure control. COMPARISON: [facility], CT, CT ANGIO ABDOMEN, 06/13/2020, 14:02. FINDINGS: Image quality: Excellent. AORTA: No hemodynamically stenosis, vascular occlusion, aneurysmal dilation or dissection. CHEST: Lungs and pleura: No acute airspace opacities. No pleural effusions or pneumothorax. Central and peripheral airways are patent and normal in caliber. Mediastinum: Heart size is mildly enlarged. No pericardial effusion. No mediastinal or hilar adenopathy by size criteria. Central pulmonary arteries are normal in size. Esophagus is normal in caliber. No hiatal hernias. Bones and chest wall: No axillary adenopathy by size criteria. Thyroid gland is unremarkable. No suspicious bony lesions. No vertebral body compression fractures. ABDOMEN: Vasculature: Celiac trunk and mesenteric arteries are patent. Renal arteries are also patent. Solid organs: Liver is normal in size and enhancement. Gallbladder is unremarkable. Biliary system is non dilated. Pancreas enhances normally. Spleen is normal in size and enhancement. No adrenal nodules. Both kidneys are atrophied, right greater than left without hydronephrosis. Left retroaortic renal vein. Single left and two right renal arteries. Peritoneum and bowel: No free fluid or air. Bowel loops are normal in caliber and wall thickness. Mild diverticula without inflammatory change. Nodes and vessels: No retroperitoneal or mesenteric adenopathy by size criteria. Inferior vena cava is normal in morphology. Miscellaneous: No ventral hernias. PELVIS: Genitourinary: Bladder wall thickness is normal. Prostate hypertrophy. Miscellaneous: Fat containing inguinal hernias. No ventral hernias. Bones: No suspicious bony lesions. No vertebral body compression fractures. IMPRESSION: 1. Aorta demonstrates no dissection or aneurysmal dilation. 2. Diverticulosis. 3. Appendix is normal. Dictated by: Bethany Ragland M.D. on 11/22/2020 at 11:06 Approved by: Bethany Ragland M.D. on 11/22/2020 at 11:20
[2020-11-22] MEDS: PIPERACILLIN-TAZO 3.375 GM/50 ML FROZ.PIGGY IV ×3 (10:44→20:39)
--- NOTE | 2020-11-22 11:47 | PC.NURSE ---
late entry, dr. garcia v.o. to bolus 500ml NS, done at 1030.
--- NOTE | 2020-11-22 12:33 | PC.NURSE ---
Pt brought to the AC at approx. 1200. Pt is A & O x 4. He denies pain after receiving pain medication in the ED and denies nausea. He has been oriented to the room having been shown his call light and bed remote functions. He has a wallet, car diaz and red sweats that have been placed in a belongings bag in the room closet. He declines to have his wallet and diaz locked up in the AC safe. Pt has been provided a mouth swab only as we anticipate his being NPO.
--- NOTE | 2020-11-22 13:46 | DI.CT.S_ITS ---
PROCEDURE: CT ANGIO CHEST PE PROTOCOL INDICATIONS: r/o PE TECHNIQUE: After the administration of intravenous contrast, 2 mm thick sections acquired from the pulmonary apices to the posterior costophrenic angles. 3-dimensional maximum intensity projection (MIP) coronal and sagittal reformats were then acquired through the thorax. For radiation dose reduction, the following was used: automated exposure control, adjustment of mA and/or kV according to patient size. COMPARISON: [facility], CT, CT ANGIO ABDOMEN, 06/13/2020, 14:02. [facility], CT, CT ANGIO CHEST ABDOMEN PELVIS, 11/22/2020, 9:55. [facility], US, US ABDOMEN LIMITED, 11/22/2020, 7:39. FINDINGS: Image quality: Excellent. Pulmonary arteries: Pulmonary arteries are normal in size, and demonstrate no intraluminal filling defects to suggest central pulmonary embolism. Lungs and pleura: There is a 7 mm subpleural nodule in the right middle lobe (series 5, image 168). A 4 mm nodule is seen on the same slice. A 5 minutes nodule is present in the right lower lobe (image 191). Lungs are clear. No pleural effusions or pneumothorax. Central and peripheral airways are patent. Mediastinum: Heart size is normal, without pericardial effusion. No mediastinal or hilar adenopathy. Thoracic aorta is normal in caliber and enhancement. Esophagus is normal in caliber, without hiatal hernia. Bones and chest wall: No suspicious bony lesions. Ribs and thoracic spine appear intact throughout. Thyroid gland is normal. No axillary or supraclavicular adenopathy. Abdomen: Visualized upper abdominal solid organs appear normal in the early arterial phase of enhancement. There are gallstones or sludge. IMPRESSION: 1. No findings to suggest pulmonary embolism. 2. Inhomogeneous enhancement of the right subclavian vein and axillary vein is likely secondary to flow related artifacts rather than venous thrombosis. 3. Small nodules in the right middle lobe and right lower lobe. Please see enclosed follow-up recommendation. Fleischner Society criteria for SOLID lung nodule followup. Nodule size (mm)Low-risk patientHigh-risk patient?4No follow-up neededFollow-up at 12 mo; if no change, no further follow-up>[id number] CT at 12 mo; if no change, no further follow-up needed.Initial follow-up CT at 6-12 mo, then 18-24 mo if no change. >6-8Initial follow-up CT at 6-12 mo, then 18-24 mo if no change. Initial follow-up CT at 3-6 mo, then 9-12 mo and 24 mo if no change. >8Follow-up CT at 3, 9, 24 mo. Or PET and/or biopsy.Same as for low-risk pts. Dictated by: Jong Giron M.D. on 11/22/2020 at 14:26 Approved by: Jong Giron M.D. on 11/22/2020 at 14:38
--- NOTE | 2020-11-22 15:20 | PM.HP.1 ---
History of Present Illness History of Present Illness Date Patient Seen: 11/22/20 Chief complaint: stomach/heart pain/has afib Narrative: The patient is a 75-year-old male with a history of chronic atrial fibrillation, hypertension, obesity, congestive heart failure, who reports he went to [place] feeling well last night. He woke up at 1:00 a.m. with some nausea. By 4:00 a.m. the patient described right sided abdominal pain. That radiated to the right upper quadrant. He had some pain in the upper chest associated with this as well. He had no vomiting or diarrhea. He had no fever or chills. The patient presented to the emergency department for evaluation. In the emergency department the patient was found to have right upper quadrant pain. He underwent an abdominal ultrasound. The abdominal ultrasound showed gallstones in the common bile duct, with tenderness over the gallbladder although no gallbladder wall thickening. Given the positive Yi signs and gallstones on exam the patient was admitted to the hospital for acute cholecystitis. During the visit in the emergency room the patient did receive a dose of Dilaudid. He had a significant reaction to that with worsening abdominal pain diaphoresis and generalized malaise. The patient underwent a CT scan of the chest to evaluate for possible pulmonary embolus or dissecting aneurysm. There was no evidence of a dissecting aneurysm, however PE could not be ruled out as the PE protocol was not obtained. Patient is not short of breath, he is not hypoxic. He received a dose of Zosyn in the emergency room and is admitted to the hospital for acute cholecystitis. Patient History Medical History (Updated 11/22/20 @ 16:03 by Benedicto Louie MD) Atrial fibrillation Congestive heart failure Hypertensive urgency Tobacco dependence Surgical History H/O skin graft S/P TURP Status post knee surgery Total knee replacement status Family & Social History Family History Mother CVA (cerebral vascular accident) Myocardial infarct Father Diabetes mellitus Social History: household members none Prior Living Arrangements Mobile home Safety & Behavioral: Feels Safe in Current Yes Environment Been Physically Hurt or No Threatened By a Person Suicidal Ideation Description None Suicide Plan Description No Plan Tobacco & Substance use: Tobacco type cigarettes Smoking Status Current every day smoker Smoking packs per day 0.05 alcohol intake frequency a few times a month Substance Use Type does not use Meds Home Medications and Allergies Home Medications Medication Instructions Recorded Confirmed Type aspirin 325 mg PO DAILY 08/05/19 05/16/20 History metoprolol tartrate 12.5 mg PO BID 05/16/20 05/16/20 History hydralazine 10 mg PO BID 11/22/20 11/22/20 History Allergies Allergy/AdvReac Type Severity Reaction Status Date / Time morphine Allergy Swelling Verified 11/22/20 09:19 of Lip/Tongue/Throat Review of Systems Review of Systems ROS: Yes All systems reviewed with the patient and are negative except as otherwise documented Exam Vital Signs (past 8 hours): - 11/22/20 07:30 11/22/20 07:31 11/22/20 08:00 Temperature Pulse Rate 78 78 74 Respiratory Rate 17 28 H 14 Blood Pressure 220/88 H Pulse Oximetry 99 98 99 11/22/20 08:01 11/22/20 08:30 11/22/20 09:00 Temperature Pulse Rate 71 76 75 Respiratory Rate 21 25 H 24 Blood Pressure 174/85 H 191/102 H Pulse Oximetry 100 100 99 11/22/20 09:30 11/22/20 09:32 11/22/20 10:00 Temperature Pulse Rate 87 96 H 106 H Respiratory Rate 33 H 31 H 29 H Blood Pressure 182/107 H 201/98 H Pulse Oximetry 94 95 95 11/22/20 10:15 11/22/20 10:30 11/22/20 11:00 Temperature Pulse Rate 98 H 81 71 Respiratory Rate 23 25 H 19 Blood Pressure 185/85 H 172/109 H Pulse Oximetry 93 96 95 11/22/20 11:01 11/22/20 11:30 11/22/20 12:11 Temperature 97.9 F Pulse Rate 78 74 64 Respiratory Rate 19 17 20 Blood Pressure 153/79 H 131/74 139/97 H Pulse Oximetry 94 93 94 Oxygen Delivery Method Room Air Narrative Exam Narrative: Pleasant elderly male lying in bed in no obvious distress HEENT: Normocephalic atraumatic, extraocular muscles are intact, oropharynx is clear, neck is supple Lungs: Coarse breath sounds at the bases, no rhonchi crackles or wheeze Cardiac exam: Irregular rate and rhythm, normal S1-S2, 2/6 systolic ejection murmur Abdomen: Obese, soft, tender in the right upper quadrant, no palpable masses, no rebound tenderness, no board-like rigidity, normoactive bowel tones Extremities: 2+ pitting edema bilateral Neuro exam: Nonfocal Skin exam: There is a 2 x 4 cm round area of the with decreased pigmentation on his back corresponding to prior skin cancer removal Objective Labs Result Diagrams: 11/22/20 07:15 11/22/20 07:15 Labs: Laboratory Results - last 24 hr 11/22/20 11/22/20 11/22/20 07:15 07:15 07:15 WBC 10.3 RBC 4.27 L Hgb 13.9 Hct 40.5 L MCV 94.8 MCH 32.4 MCHC 34.2 RDW 13.7 Plt Count 151 Neut % (Auto) 67.5 Lymph % (Auto) 20.3 L [place] % (Auto) 8.8 Eos % (Auto) 2.9 Baso % (Auto) 0.5 Neut # (Auto) 7000 Lymph # (Auto) 2100 [place] # (Auto) 900 Eos # (Auto) 300 Baso # (Auto) 100 PT 12.0 INR 1.0 APTT 30 Sodium 138 Potassium 4.1 Chloride 108 H Carbon Dioxide 24 BUN 15 Creatinine 0.81 Estimated GFR > 60.0 BUN/Creatinine Ratio 18.5 Glucose 105 Calcium 8.6 Total Bilirubin 0.4 AST 24 ALT 21 Alkaline Phosphatase 70 Total Creatine Kinase 100 CK-MB (CK-2) TNP CK-MB (CK-2) Rel Index TNP Troponin I < 0.012 NT-Pro-B Natriuret Pep 1230 H Total Protein 6.6 Albumin 3.6 Globulin 3.0 Albumin/Globulin Ratio 1.2 Lipase 103 SARS-CoV-2 (PCR) 11/22/20 09:05 WBC RBC Hgb Hct MCV MCH MCHC RDW Plt Count Neut % (Auto) Lymph % (Auto) [place] % (Auto) Eos % (Auto) Baso % (Auto) Neut # (Auto) Lymph # (Auto) [place] # (Auto) Eos # (Auto) Baso # (Auto) PT INR APTT Sodium Potassium Chloride Carbon Dioxide BUN Creatinine Estimated GFR BUN/Creatinine Ratio Glucose Calcium Total Bilirubin AST ALT Alkaline Phosphatase Total Creatine Kinase CK-MB (CK-2) CK-MB (CK-2) Rel Index Troponin I NT-Pro-B Natriuret Pep Total Protein Albumin Globulin Albumin/Globulin Ratio Lipase SARS-CoV-2 (PCR) Negative Assessment & Plan Assessment & Plan narrative: 1. Biliary colic -abdominal ultrasound revealed, Cholecystitis likely is present given the presence of gallstones within the gallbladder neck which are nonmobile and focal tenderness during sonographic palpation in this area. The gallbladder wall is not thickened, however.Hepatomegaly with fatty infiltration, relatively limited quality visualization due to body habitus. No ascites seen. -white count normal, no fever, will continue antibiotic -plan for elective surgery on Thursday as an outpatient -will continue clear liquid diet and advanced as tolerated -anticipate discharge home with plan for outpatient cholecystectomy as above 2. Hypertension -continue metoprolol 50 b.i.d. plus hydralazine 3. Chronic atrial fibrillation -continue metoprolol as above -will hold aspirin anticipating surgery on Thursday Patient is a full code will note that his record according Will continue Lovenox for DVT prophylaxis Quality VTE Deep Vein Thrombosis/Pulmonary Embolism Present on Admission: No
--- NOTE | 2020-11-22 15:55 | P.HP_ITS ---
History of Present Illness History of Present Illness Date Patient Seen: 11/22/20 Time Patient Seen: 15:55 Chief complaint: stomach/heart pain/has afib Narrative: 75-year-old man admitted to the hospital for abdominal pain. He developed epigastric/right upper quadrant pain with associated nausea that awoke him from sleep. He presented to the emergency room, WBC 10, normal LFTs including TBil 0.4 and elevated BNP 1230. Cardiac workup was negative. Right upper quadrant ultrasound demonstrated multiple gallstones mild wall thickening, no pericholecystic fluid, CT A/P unremarkable. He was admitted to for possible acute cholecystitis. He has had previous episodes of biliary colic. Medical history is significant for congestive heart failure, hypertension, obesity, tobacco dependence, atrial fibrillation. He is not on anticoagulation but takes aspirin 325 mg daily but has not taken any with the past 1 week. He is currently feeling well, denies any abdominal pain no nausea is hungry. Patient History Medical History (Updated 11/22/20 @ 16:03 by Benedicto Louie MD) Atrial fibrillation Congestive heart failure Hypertensive urgency Tobacco dependence Surgical History H/O skin graft S/P TURP Status post knee surgery Total knee replacement status Family & Social History Family History Mother CVA (cerebral vascular accident) Myocardial infarct Father Diabetes mellitus Social History: household members none Prior Living Arrangements Mobile home Safety & Behavioral: Feels Safe in Current Yes Environment Been Physically Hurt or No Threatened By a Person Suicidal Ideation Description None Suicide Plan Description No Plan Tobacco & Substance use: Tobacco type cigarettes Smoking Status Current every day smoker Smoking packs per day 0.05 alcohol intake frequency a few times a month Substance Use Type does not use Meds Home Medications and Allergies Home Medications Medication Instructions Recorded Confirmed Type aspirin 325 mg PO DAILY 08/05/19 11/22/20 History metoprolol tartrate 50 mg PO BID 05/16/20 11/22/20 History hydralazine 10 mg PO BID 11/22/20 11/22/20 History Allergies Allergy/AdvReac Type Severity Reaction Status Date / Time morphine Allergy Swelling Verified 11/22/20 09:19 of Lip/Tongue/Throat Review of Systems Review of Systems ROS: Yes All systems reviewed with the patient and are negative except as otherwise documented Exam Vital Signs (past 8 hours): - 11/22/20 08:00 11/22/20 08:01 11/22/20 08:30 Temperature Pulse Rate 74 71 76 Respiratory Rate 14 21 25 H Blood Pressure 174/85 H Pulse Oximetry 99 100 100 11/22/20 09:00 11/22/20 09:30 11/22/20 09:32 Temperature Pulse Rate 75 87 96 H Respiratory Rate 24 33 H 31 H Blood Pressure 191/102 H 182/107 H Pulse Oximetry 99 94 95 11/22/20 10:00 11/22/20 10:15 11/22/20 10:30 Temperature Pulse Rate 106 H 98 H 81 Respiratory Rate 29 H 23 25 H Blood Pressure 201/98 H 185/85 H 172/109 H Pulse Oximetry 95 93 96 11/22/20 11:00 11/22/20 11:01 11/22/20 11:30 Temperature Pulse Rate 71 78 74 Respiratory Rate 19 19 17 Blood Pressure 153/79 H 131/74 Pulse Oximetry 95 94 93 11/22/20 12:11 11/22/20 15:14 Temperature 97.9 F Pulse Rate 64 Respiratory Rate 20 Blood Pressure 139/97 H Pulse Oximetry 94 97 Oxygen Delivery Method Room Air Narrative Exam Narrative: General-no acute distress, obese elderly man HEENT-moist mucous membranes, no scleral icterus Neck-supple, no lymphadenopathy Chest- non labored respirations, clear to auscultation bilaterally Cardiac- minimal peripheral edema, normal rate Abdomen-soft, nontender, non distended Extremities-warm, well perfused Neurological-alert and oriented, no focal deficits Objective Labs Result Diagrams: 11/22/20 07:15 11/22/20 07:15 Labs: Laboratory Results - last 24 hr 11/22/20 11/22/20 11/22/20 07:15 07:15 07:15 WBC 10.3 RBC 4.27 L Hgb 13.9 Hct 40.5 L MCV 94.8 MCH 32.4 MCHC 34.2 RDW 13.7 Plt Count 151 Neut % (Auto) 67.5 Lymph % (Auto) 20.3 L [place] % (Auto) 8.8 Eos % (Auto) 2.9 Baso % (Auto) 0.5 Neut # (Auto) 7000 Lymph # (Auto) 2100 [place] # (Auto) 900 Eos # (Auto) 300 Baso # (Auto) 100 PT 12.0 INR 1.0 APTT 30 Sodium 138 Potassium 4.1 Chloride 108 H Carbon Dioxide 24 BUN 15 Creatinine 0.81 Estimated GFR > 60.0 BUN/Creatinine Ratio 18.5 Glucose 105 Calcium 8.6 Total Bilirubin 0.4 AST 24 ALT 21 Alkaline Phosphatase 70 Total Creatine Kinase 100 CK-MB (CK-2) TNP CK-MB (CK-2) Rel Index TNP Troponin I < 0.012 NT-Pro-B Natriuret Pep 1230 H Total Protein 6.6 Albumin 3.6 Globulin 3.0 Albumin/Globulin Ratio 1.2 Lipase 103 SARS-CoV-2 (PCR) 11/22/20 09:05 WBC RBC Hgb Hct MCV MCH MCHC RDW Plt Count Neut % (Auto) Lymph % (Auto) [place] % (Auto) Eos % (Auto) Baso % (Auto) Neut # (Auto) Lymph # (Auto) [place] # (Auto) Eos # (Auto) Baso # (Auto) PT INR APTT Sodium Potassium Chloride Carbon Dioxide BUN Creatinine Estimated GFR BUN/Creatinine Ratio Glucose Calcium Total Bilirubin AST ALT Alkaline Phosphatase Total Creatine Kinase CK-MB (CK-2) CK-MB (CK-2) Rel Index Troponin I NT-Pro-B Natriuret Pep Total Protein Albumin Globulin Albumin/Globulin Ratio Lipase SARS-CoV-2 (PCR) Negative Assessment & Plan Assessment and plan (1) Biliary colic: Status: Acute Assessment & Plan narrative: 75-year-old man with congestive heart failure and obesity admitted to the hospital for abdominal pain most likely, biliary colic. Laboratory studies including CBC and LFTs are normal. Right upper quadrant ultrasound demonstrates multiple gallstones including 1 within neck of the gallbladder the wall is mildly thickened there is no pericholecystic fluid he is nontender on exam. -diet as tolerated -hold all anti-platelet medications -will schedule for outpatient laparoscopic cholecystectomy Sunday 11/26 Quality VTE Deep Vein Thrombosis/Pulmonary Embolism Present on Admission: No
[2020-11-22] MEDS: METOPROLOL ER 50 MG TABLET PO (20:38)
[2020-11-22] MEDS: HYDRALAZINE 10 MG TABLET PO (20:39)
[2020-11-22 21:11] LABS: Add Manual Diff / Slide Review NO; Basophils Absolute Auto 0 /uL (0-100); Basophils Percent Auto 0.1 % (0-2); Eosinophils Absolute Auto 0 /uL (0-450); Hematocrit 39.3 % (41-53); Hemoglobin 13.6 g/dL (13.5-17.5); Lymphocytes Absolute Auto 900 /uL (1100-4500); Lymphocytes Percent Auto 9.9 % (25-40); Mean Corpuscular HGB Conc 34.7 % (30-36); Mean Corpuscular Hemoglobin 32.7 PG (26-34); Mean Corpuscular Volume 94.2 fL (80-100); Monocytes Absolute Auto 200 /uL (0-900); Monocytes Percent Auto 2.7 % (3-14); Neutrophils Absolute Auto 8100 /uL (1500-7000); Neutrophils Percent Auto 87.3 % (50-75); Platelet Count 149 X10^3/uL (150-400); Red Blood Cell Count 4.17 X10^6/uL (4.5-5.9); Red Cell Distribution Width 13.8 % (11.6-14.8); White Blood Cell Count 9.2 X10^3/uL (4.5-11.0)
[2020-11-22 21:23] LABS: Alanine Aminotransferase 117 IU/L (<50); Albumin 3.8 g/dL (3.5-5.0); Albumin Globulin Ratio 1.2 (1.0-2.8); Alkaline Phosphatase 95 U/L (38-126); Aspartate Aminotransferase 156 IU/L (17-59); BUN Creatinine Ratio 17.9 (6-22); Bilirubin Total 0.9 mg/dL (0.2-1.3); Blood Urea Nitrogen 15 mg/dL (9-20); Calcium 8.9 mg/dL (8.4-10.2); Carbon Dioxide 24 mmol/L (22-32); Chloride 107 mmol/L (98-107); Estimated Glomerular Filt Rate > 60.0 mL/min (>60); Globulin 3.1 g/dL (1.7-4.1); Glucose 149 mg/dL (80-110); HEMOLYSIS < 15 (0-50); Potassium 4.5 mmol/L (3.4-5.1); Sodium 135 mmol/L (137-145); Total Protein 6.9 g/dL (6.3-8.2)
[2020-11-22 21:34] LABS: Cholesterol 139 mg/dL (140-199); HDL Cholesterol 47 mg/dL (40-60); LDL Cholesterol Calculated 85 mg/dL (<100); Triglycerides 33 mg/dL (35-150)
[2020-11-23] MEDS: PIPERACILLIN-TAZO 3.375 GM/50 ML FROZ.PIGGY IV ×2 (02:35→09:26)
[2020-11-23] MEDS: SODIUM CHLORIDE 0.9% FLUSH 10 ML IV ×2 (02:35→09:26)
--- NOTE | 2020-11-23 02:58 | PC.NURSE ---
Patient is alert and oriented. Breath sounds CTA with RA sat of 96%. HR irregular with history of afib; telemetry reading was afib CVR. Denies nausea. BT present and abdomen is soft and non tender. Denies any pain. Denies difficulty urinating and has been using urinal. Able to turn himself in bed. Gait not assessed. Agreeable to having calf SCD's put on at shift change but now requesting they be removed; reminded to ankle wave. 2+ bilateral LE edema. Chronic neuropathy in bilateral hands/feet. Fall risk score is high and bed alarm is activated.
[2020-11-23 04:44] VITALS: BP 141/96; PULSE 76; RESP 18; TEMP 37; O2SAT 96
[2020-11-23 05:55] LABS: Add Manual Diff / Slide Review NO; Basophils Absolute Auto 0 /uL (0-100); Basophils Percent Auto 0.2 % (0-2); Eosinophils Absolute Auto 0 /uL (0-450); Hematocrit 37.7 % (41-53); Hemoglobin 12.7 g/dL (13.5-17.5); Lymphocytes Absolute Auto 1200 /uL (1100-4500); Lymphocytes Percent Auto 11.9 % (25-40); Mean Corpuscular HGB Conc 33.8 % (30-36); Mean Corpuscular Hemoglobin 31.8 PG (26-34); Mean Corpuscular Volume 94.1 fL (80-100); Monocytes Absolute Auto 700 /uL (0-900); Monocytes Percent Auto 6.9 % (3-14); Neutrophils Absolute Auto 8500 /uL (1500-7000); Platelet Count 130 X10^3/uL (150-400); Red Blood Cell Count 4.01 X10^6/uL (4.5-5.9); White Blood Cell Count 10.5 X10^3/uL (4.5-11.0)
[2020-11-23 06:03] LABS: Alanine Aminotransferase 101 IU/L (<50); Albumin 3.4 g/dL (3.5-5.0); Albumin Globulin Ratio 1.2 (1.0-2.8); Alkaline Phosphatase 81 U/L (38-126); Aspartate Aminotransferase 82 IU/L (17-59); Blood Urea Nitrogen 15 mg/dL (9-20); Calcium 8.6 mg/dL (8.4-10.2); Carbon Dioxide 24 mmol/L (22-32); Chloride 108 mmol/L (98-107); Estimated Glomerular Filt Rate > 60.0 mL/min (>60); Globulin 2.8 g/dL (1.7-4.1); Glucose 122 mg/dL (80-110); HEMOLYSIS < 15 (0-50); Potassium 4.3 mmol/L (3.4-5.1); Sodium 134 mmol/L (137-145); Total Protein 6.2 g/dL (6.3-8.2)
[2020-11-23 07:51] VITALS: BP 143/89; PULSE 75; RESP 16; TEMP 36.8; O2SAT 95
[2020-11-23 08:00] VITALS: O2SAT 95
--- NOTE | 2020-11-23 09:01 | P.DS_ITS ---
History of Present Illness History of Present Illness Date Patient Seen: 11/23/20 Time Patient Seen: 09:01 Chief complaint: stomach/heart pain/has afib Narrative: Per Dr. Brunson, The patient is a 75-year-old male with a history of chronic atrial fibrillation, hypertension, obesity, congestive heart failure, who reports he went to [facility] last night. He woke up at 1:00 a.m. with some nausea. By 4:00 a.m. the patient described right sided abdominal pain. That radiated to the right upper quadrant. He had some pain in the upper chest associated with this as well. He had no vomiting or diarrhea. He had no fever or chills. The patient presented to the emergency department for evaluation. In the emergency department the patient was found to have right upper quadrant pain. He underwent an abdominal ultrasound. The abdominal ultrasound showed gallstones in the common bile duct, with tenderness over the gallbladder although no gallbladder wall thickening. Given the positive Yi signs and gallstones on exam the patient was admitted to the hospital for acute cholecystitis. During the visit in the emergency room the patient did receive a dose of Dilaudid. He had a significant reaction to that with worsening abdominal pain diaphoresis and generalized malaise. The patient underwent a CT scan of the chest to evaluate for possible pulmonary embolus or dissecting aneurysm. There was no evidence of a dissecting aneurysm, however PE could not be ruled out as the PE protocol was not obtained. Patient is not short of breath, he is not hypoxic. He received a dose of Zosyn in the emergency room and is admitted to the hospital for acute cholecystitis. Discharge Providers Provider Date of admission: 11/22/20 10:33 Discharge Date: 11/23/20 Primary care physician: Linda Melendez MD Consults: 11/22/20 10:33 Consult to General Surgery Stat Comment: Consulting Provider: Benedicto Louie Reason for consultation: Cholecystitis Has provider been notified: Yes Discharge provider: Osman Dickens DO Summary Hospital Course Discharge Diagnosis: 1. Biliary colic, possible acute cholecystitis, unable to be further determined. 2. Hypertension 3. Chronic atrial fibrillation Hospital Course: Sreekanth Gomez is a 75-year-old male with a past medical history of chronic atrial fibrillation hypertension who was admitted with abdominal pain. On abdominal ultrasound he was noted to have probable cholecystitis given the presence of gallstones within the gallbladder neck and focal tenderness during the sonographic exam, however there was no thickening of his gallbladder wall and no mention of pericholecystic fluid. The patient was admitted to the medicine service, surgery was consulted who recommended outpatient cholecystectomy in a few days. The patient was continued on Zosyn while admitted, and he was tolerating a diet the following morning and was discharged home on oral Augmentin for presumed cholecystitis with plan for follow-up in 3 days for cholecystectomy with General surgery. Exam Vital Signs (past 8 hours): - 11/23/20 04:44 11/23/20 07:51 Temperature 98.6 F 98.3 F Pulse Rate 76 75 Respiratory Rate 18 16 Blood Pressure 141/96 H 143/89 H Pulse Oximetry 96 95 Oxygen Delivery Method Room Air Oxygen Flow Rate 0 Narrative Exam Narrative: Pleasant elderly male lying in bed in no obvious distress HEENT: Normocephalic atraumatic, extraocular muscles are intact, oropharynx is clear, neck is supple Lungs: Coarse breath sounds at the bases, no rhonchi crackles or wheezing. Cardiac exam: Irregular rate and rhythm, normal S1-S2, no murmur/rubs/gallops appreciated. Abdomen: Obese, soft, non-tender, no palpable masses, no rebound tenderness, normoactive bowel tones Extremities: 2+ pitting edema bilateral Neuro exam: Nonfocal, alert and oriented. Objective Labs Result Diagrams: 11/23/20 05:30 11/23/20 05:30 Labs: Laboratory Results - last 24 hr 11/22/20 11/22/20 11/22/20 09:05 20:50 20:50 WBC 9.2 RBC 4.17 L Hgb 13.6 Hct 39.3 L MCV 94.2 MCH 32.7 MCHC 34.7 RDW 13.8 Plt Count 149 L Neut % (Auto) 87.3 H Lymph % (Auto) 9.9 L [place] % (Auto) 2.7 L Eos % (Auto) 0.0 L Baso % (Auto) 0.1 Neut # (Auto) 8100 H Lymph # (Auto) 900 L [place] # (Auto) 200 Eos # (Auto) 0 Baso # (Auto) 0 Sodium 135 L Potassium 4.5 Chloride 107 Carbon Dioxide 24 BUN 15 Creatinine 0.84 Estimated GFR > 60.0 BUN/Creatinine Ratio 17.9 Glucose 149 H Calcium 8.9 Total Bilirubin 0.9 AST 156 H ALT 117 H Alkaline Phosphatase 95 Total Protein 6.9 Albumin 3.8 Globulin 3.1 Albumin/Globulin Ratio 1.2 Triglycerides Cholesterol LDL Cholesterol, Calc HDL Cholesterol SARS-CoV-2 (PCR) Negative 11/22/20 11/23/20 11/23/20 20:50 05:30 05:30 WBC 10.5 RBC 4.01 L Hgb 12.7 L Hct 37.7 L MCV 94.1 MCH 31.8 MCHC 33.8 RDW 14.0 Plt Count 130 L Neut % (Auto) 81.0 H Lymph % (Auto) 11.9 L [place] % (Auto) 6.9 Eos % (Auto) 0.0 L Baso % (Auto) 0.2 Neut # (Auto) 8500 H Lymph # (Auto) 1200 [place] # (Auto) 700 Eos # (Auto) 0 Baso # (Auto) 0 Sodium 134 L Potassium 4.3 Chloride 108 H Carbon Dioxide 24 BUN 15 Creatinine 0.79 Estimated GFR > 60.0 BUN/Creatinine Ratio 19.0 Glucose 122 H Calcium 8.6 Total Bilirubin 1.0 AST 82 H ALT 101 H Alkaline Phosphatase 81 Total Protein 6.2 L Albumin 3.4 L Globulin 2.8 Albumin/Globulin Ratio 1.2 Triglycerides 33 L Cholesterol 139 L LDL Cholesterol, Calc 85 HDL Cholesterol 47 SARS-CoV-2 (PCR) [facility] Medical History (Updated 11/22/20 @ 16:03 by Benedicto Louie MD) Atrial fibrillation Congestive heart failure Hypertensive urgency Tobacco dependence Surgical History H/O skin graft S/P TURP Status post knee surgery Total knee replacement status Family History Mother CVA (cerebral vascular accident) Myocardial infarct Father Diabetes mellitus Social History household members: none Smoking Status: Current every day smoker Discharge Plan Discharge Plan Patient Disposition: Home Provider Discharge Comment: You were admitted to the hospital with abdominal pain, please continue antibiotics for possible gallbladder infection until your surgery next thursday. Discharge orders & Medications Prescriptions: New amoxicillin-pot clavulanate 875-125 mg tablet 1 tab PO BID 4 Days Qty: 8 RF: 0 Continued metoprolol tartrate 25 mg Tablet 50 mg PO BID RF: 0 aspirin 325 mg Tablet 325 mg PO DAILY RF: 0 hydralazine 10 mg tablet 10 mg PO BID RF: 0 Follow up/Referrals: Linda Melendez MD [Primary Care Provider] - Diet/Activity/Treatments Diet: Diet as Tolerated and Low-fat Activity: As tolerated Visit Report/Discharge Packet Instructions: Gallstones, DI for Heart Failure, DI for Laparoscopy, DI for Cholecystitis Discharge Data Primary Care Provider: Linda Melendez Attending Provider: Rachael Brunson VTE Deep Vein Thrombosis/Pulmonary Embolism Present on Admission: No
[2020-11-23] MEDS: ENOXAPARIN 40 MG/0.4 ML SYRINGE SUBCUT (09:24)
[2020-11-23 09:26] VITALS: BP 143/89; PULSE 75
[2020-11-23] MEDS: METOPROLOL ER 50 MG TABLET PO (09:26)
[2020-11-23] MEDS: HYDRALAZINE 10 MG TABLET PO (09:26)
[2020-11-23 10:20] VITALS: BP 132/84; PULSE 70
[2020-11-23 10:21] VITALS: BP 132/84; PULSE 70
--- NOTE | 2020-11-23 11:07 | CM.DANOTE ---
Discharge Planning/Care Management DCPlanning: assessment: case received and discussed in Team Rounds. DC order for home noted. Met now with pt and introduced self and role. Pt is a 75 year old male who admitted to care of hospitalist team yesterday. Consulting: [facility]: Dr. Louie Payer: Medicare and Medicaid (spend down) PCP: Linda Loaiza and also the [facility] team. Pt confirms he knows he is going to d/c today and surgery to remove his gallbladder is planned for Thursday as an OUTPT. He says he is comfortable with this plan as long as the medication keeps working. I was in rough shape when I came in yesterday. Pt's daughter Sofía will be checking in on him as need be. Pt plans to drive himself home. Advanced directive, confirm from FAMILY Start: 11/22/20 12:52 Freq: Q24H Status: Active Protocol: Document 11/22/20 12:52 [facility] (Rec: 11/22/20 12:56 [facility] [id number]) Advance Directive, confirm on record Time 12:56 Person contacted patient Copy received No CM Discharge Assessment Start: 11/23/20 10:59 Freq: Status: Active Protocol: Document 11/23/20 10:59 ITV (Rec: 11/23/20 11:07 ITV [id number]) Discharge Planning Assessment Advance Directives? No Advance Directives on File No History Provided By Patient,Medical Record Prior Living Arrangements Mobile home Household Members none Comment has multiple family members who reside on the same road. we call it the [facility] states pt. Type of transporation used prior to Drives own vehicle admit Independent with ADL's Yes Is patient alert and oriented? Yes Discharge Plan Home Referrals Initiated None needed
--- NOTE | 2020-11-23 11:34 | PC.NURSE ---
Patient given discharge instructions, all questions answered. Removed from Tele, Iv removed. Patient showered and was escorted via wheelchair to personal vehicle.
== END 2020-11-23 11:30 | disposition home or self-care (01) ==
LOC: ED 06:56 → AC 10:33
PROVIDERS: Nurse Practitioner Adult Health; Admitting Provider Internal Medicine; Emergency Provider Emergency Medicine; PCP Family Medicine; Referring Provider Emergency Medicine; Visit Provider Internal Medicine
DX: K80.20 Calculus of gallbladder without cholecystitis without obstruction (principal); R10.11 Right upper quadrant pain; I48.20 Chronic atrial fibrillation, unspecified; I50.9 Heart failure, unspecified; I11.0 Hypertensive heart disease with heart failure; F17.210 Nicotine dependence, cigarettes, uncomplicated; Z20.822 Contact with and (suspected) exposure to COVID-19
CPT/HCPCS: 36415; 71045; 71275; 74174; 76705; 80053; 80061; 82550; 83690; 83880; 84484; 85025; 85610; 85730; 87635; 93005; 96361; 96365; 96366; 96372; 96375; 96376; 99218; 99282; 99284; C9803; G0378; J0171; J1170; J1200; J1650; J1885; J2270; J2405; J2543; J2930; Q9967

== ENCOUNTER 2020-11-26 09:45 | Day surgery (SDC) | payer MEDICARE, MEDICAID, OTHER, SELFPAY ==
[2020-11-22 12:39] VITALS: BMI 38.5
[2020-11-26] VITALS (20 sets, daily range): BP systolic 148–193; BP diastolic 92–125; PULSE 64–96; RESP 12–20; TEMP 36.5–37.1; O2SAT 93–100; BMI 38.9
--- NOTE | 2020-11-26 | PATH_ITS ---
[facility] Accession Number: [id number] . 01 Material submitted: . gallbladder - GALLBLADDER AND CONTENTS . 02 Diagnosis: Gallbladder and Contents, Cholecystectomy: Chronic cholecystitis, cholesterolosis, and cholelithiasis. MRV 11/30/2020 1413 Local . 02 Electronically signed: . Mary Jauregui MD, Pathologist NPI- [id number] . 01 Gross description: . The specimen is received in formalin, labeled gallbladder and contents and consists of a 10.0 x 5.0 x 4.0 cm intact gallbladder with a 0.3 cm in diameter cystic duct. The serosa is morelos-pink and smooth. Opening reveals green viscous bile with multiple morelos-green choleliths ranging from 0.1 to 1.8 cm and measuring 7.0 x 4.0 x 3.0 cm in aggregate. The mucosa is morelos-green and velvety, and the wall thickness measures up to 0.6 cm. [employer] sections are submitted to include the en face cystic duct margin (blue) in cassette A1. ([id number]) /MRV 11/28/2020 1508 Local . 02 Pathologist provided ICD-10: K80.60, K81.1 . 02 CPT . 880426 Performed at: 01 [facility] [address], [place], [place] [id number] MD Munir Mauro MD Phone: [phone] Performed at: 02 [facility] [address] [place], [place] [id number] MD Nel Robbins MD Phone: [phone]
[2020-11-26] MEDS: LACTATED RINGERS 1,000 ML 100 ML IV ×3 (10:18→16:16)
[2020-11-26 10:32] LABS: COVID19 -Nasal RAPID Negative (Negative)
--- NOTE | 2020-11-26 11:58 | PM.PREOP ---
Pre-operative Note Interval Note History & Physical reviewed/Exam performed by Physician: Yes Changes to H&P: No
[2020-11-26] MEDS: CEFAZOLIN 2 GM/100 ML FROZ.PIGGY IV (12:01)
--- NOTE | 2020-11-26 12:24 | SUR.OPER ---
Supine on padded OR bed, head on pillow, safety belt at thigh, left arm padded and tucked at side. Right arm secured on padded arm oard <90 degrees abduction. Legs uncrossed. Padded footboard in place. Tape over blanket to secure lower legs.
[2020-11-26] MEDS: BUPIVACAINE 0.25% (PF) VIAL 30 ML INJ (12:28)
--- NOTE | 2020-11-26 14:37 | PM.OP.1 ---
Operative Date/Time/Diagnoses Date of procedure: 11/26/20 Time of procedure: 14:37 Pre-op diagnosis: biliary colic Post-op diagnosis: other (chronic cholecystitis) Procedure & Clinicians Procedure: Laparoscopic cholecystectomy Same procedure as scheduled: Yes Indications: 75-year-old man with biliary colic here for elective cholecystectomy Surgeon: Benedicto Louie Side Stitching Machine Operator: Buddy Castillo Anesthesia Type: General Operative Notes Findings: Chronic cholecystitis Specimen(s): other (Gallbladder) Estimated Blood Loss (mL): 75 Procedure in detail: The patient was placed supine on the table and bilateral lower extremity compression devices were applied. Anesthesia was induced they were intubated with an endotracheal tube and received 2g of Ancef. A time-out was performed. They were prepped and draped in sterile fashion. An infraumbilical incision was made, the umbilical stalk was elevated and the fascia was sharply incised entering the abdomen atraumatically. A blunt tip 12mm balloon trocar was then inserted, pneumoperitoneum was established and inspection of the abdomen demonstrated no evidence of injury. They were placed head up and right side up and then a 11 mm port was placed high in the epigastrium and two 5mm in the right upper quadrant. The omentum was plastered to the gallbladder consistent with chronic cholecystitis. The omentum was carefully dissected off of the gallbladder to fully expose it. The gallbladder was grasped by the fundus and retracted over the liver and retracted laterally by the infundibulum. Using electrocautery the lateral plane between the gallbladder and the liver was opened towards the fundus. The gallbladder was then retracted laterally and the medial plane was developed in the same manner. With the gallbladder mobilized the bottom of the cystic plate was visualized. The hepatocystic triangle was meticulosly skeletonized of all fat and fibrous tissue from both the front and the back. Only two structures were then clearly seen entering the gallbladder the cystic duct and the cystic artery. With the critical view of safety fully established the cystic duct was clipped proximally and distally using the 10 mm hemo clip applied under direct visualization and then sharply divided. The cystic artery was divided in the same fashion. The gallbladder was removed from the liver bed using electro cautery. The liver bed was then inspected for hemostasis and this was achieved. The abdomen was irrigated with sterile saline and inspection was made that showed the clips in good position. The specimen was removed using Endo-Catch. Given the significant amount of inflammation from the chronic cholecystitis a 19 [place] drain was placed into the right upper quadrant. The abdomen was desufflated. The umbilical fascia was closed with 0 Vicryl in a [id number] fashion under direct visualization. Skin incisions were irrigated and closed with 4-0 Monocryl. 30 ml of 0.25% bupivacaine was infiltrated into the subcutaneous tissue of the incisions. The wounds were sealed with Dermabond. Patient emerged from anesthesia was extubated and transferred to recovery in stable condition. The sponge and instrument count at the end of the operation was correct. Complications: none Post-operative Condition: stable Disposition: Acute Care
[2020-11-26] MEDS: HYDROMORPHONE 2 MG INJ IV ×2 (14:50→15:07)
[2020-11-26] MEDS: LABETALOL 20 MG/4 ML SYRINGE 10 MG IV (14:50)
[2020-11-26] MEDS: fentaNYL 100 MCG/2 ML INJ IV (14:52)
[2020-11-26] MEDS: OXYCODONE IR 5 MG TABLET PO ×2 (15:38→22:52)
[2020-11-26] MEDS: HYDRALAZINE 10 MG TABLET PO (18:51)
[2020-11-26] MEDS: ACETAMINOPHEN 325 MG TABLET 650 MG PO (18:51)
[2020-11-26] MEDS: METOPROLOL IR 25 MG TABLET 50 MG PO (19:04)
--- NOTE | 2020-11-26 20:58 | PC.NURSE ---
Addendum entered by Joy Redmond R.N. 11/26/20 22:55: Med @ this time w/oxycodone for 01/26 discomfort. Will assess. Original Note: Pt arrived from PACU at 1530 Alert/oriented. SpO2 96% RA Abdomen w/3 lap site dsg CDI. IVF LR infusing into LFA via pump @ 100cc/hr. [place] drain present w/ serous drainage. Satisfactory post op course. Call light w/in reach, bed alarm on for pt safety.
[2020-11-27 00:05] VITALS: BP 155/84; PULSE 81; RESP 18; TEMP 37.2; O2SAT 94
[2020-11-27] MEDS: ACETAMINOPHEN 325 MG TABLET 650 MG PO ×3 (00:25→11:56)
[2020-11-27] MEDS: LACTATED RINGERS 1,000 ML 100 ML IV (01:57)
--- NOTE | 2020-11-27 02:06 | PC.NURSE ---
0124: patient is alert and oriented. Breath sounds CTA with RA sat of 94%. HR irregular; has hx of afib. Denies nausea. BT hypoactive and patient denies flatus as yet. Abdomen is large/round and tender. Voiding per urinal and denies dysuria, frequency or urgency; urine is dark oscar. Is able to move himself. Gait not assessed as not yet out of bed but patient reports he walks without device but has had frequent trips/falls. Dressing around [place] drain intact with small amount of sanguinous drainage at insertion site. Lap sites steristripped and without drainage/ redness. Wearing bilateral calf SCD's. States incisional pain is 6/10 with movement but only 2-3/10 at rest which he states is tolerable; did have Oxycodone at 2252 and scheduled Tylenol at 0025. Declines offer of ice pack to help alleviate discomfort. Fall risk score is high and bed alarm is activated.
[2020-11-27] MEDS: OXYCODONE IR 5 MG TABLET PO ×2 (04:47→10:18)
[2020-11-27 05:00] VITALS: BP 152/105; PULSE 79; RESP 18; TEMP 36.8; O2SAT 95
[2020-11-27 07:39] VITALS: BP 161/100; PULSE 72; RESP 16; TEMP 36.9; O2SAT 98
[2020-11-27] MEDS: METOPROLOL IR 25 MG TABLET 50 MG PO (10:18)
[2020-11-27] MEDS: HYDRALAZINE 10 MG TABLET PO (10:19)
--- NOTE | 2020-11-27 11:05 | PC.NURSE ---
Day shift: Pt had a shower this AM and tolerated well. ABD drain dressing site wet with some light red drainage as well. Dressing changed at approx 1030. Drain site stitches intact w/ no s/s of infection. New dressing is labeled per protocol.
[2020-11-27 11:08] VITALS: O2SAT 96
[2020-11-27 11:26] VITALS: BP 151/95; PULSE 79; RESP 16; TEMP 37.2; O2SAT 97
[2020-11-27 11:35] VITALS: BP 151/95; PULSE 79
--- NOTE | 2020-11-27 11:43 | CM.DANOTE ---
DCP: Case received, EMR reviewed and met with patient. Introduced self and role. Was able to obtain information from patient regarding his baseline activity status and current living situation prior to hospitalization. DCP assessment completed with information currently available. Patient is a 75 year old male who admitted yesterday morning to the care of the surgical team. PCP: Dr. Linda Melendez at [facility]. Payer: confirmed: Medicare/Medicaid [employer] Program. Patient came to the hospital via private vehicle for a surgical procedure. He had a laparoscopic cholecystectomy, secondary to having gallstones. Met with patient in his room. He was sitting up in his chair by his bed, pleasant. He is independent at baseline. Is eager to go home. He resides in [place] alone, but has a daughter who lives near by. He is currently driving, and uses no DME supplies. He goes to the [facility] for his medical needs. P: DCP to continue to follow. Patient could possibly go home today after he sees the surgeon. Krystin Hand RN/Pearl Maker
--- NOTE | 2020-11-27 14:24 | PC.NURSE ---
Day shift: Paperwork signed and all questions answered. Pt has all personal belongings. [place] drain teaching done w/ Pt and his daughter. Pt does have f/u this to take drain out. Taken to car driven by his daughter in by KINZA Huang. MD scripts sent electronic by . Pt encouraged to take stool softeners and drink plenty of water.
== END 2020-11-27 14:51 | disposition home or self-care (01) ==
LOC: OR 14:36 → AC 15:59
PROVIDERS: PCP Family Medicine; Referring Provider Surgery; Visit Provider Surgery
PROC: 0FT44ZZ Resection of Gallbladder, Percutaneous Endoscopic Approach (ICD-10-PCS; CPT 47562; principal; 2020-11-26 11:30)
DX: K80.10 Calculus of gallbladder with chronic cholecystitis without obstruction (principal); I50.9 Heart failure, unspecified; I11.0 Hypertensive heart disease with heart failure; I48.91 Unspecified atrial fibrillation; E66.9 Obesity, unspecified; F17.210 Nicotine dependence, cigarettes, uncomplicated
CPT/HCPCS: 47562; 82962; 87635; J0690; J1100; J1170; J1885; J2250; J2405; J2704; J3010

== ENCOUNTER → 2021-12-05 09:57 | Outpatient (CLI) | payer MEDICARE, OTHER, SELFPAY ==
[2020-11-27 15:47] VITALS: BMI 38.9
--- NOTE | 2021-12-05 10:02 | DI.RAD.S_ITS ---
PROCEDURE: XR HIP W PEL IF DONE LT 2V INDICATIONS: left hip pain TECHNIQUE: Left views of the hip were acquired. COMPARISON: None. FINDINGS: Bones: No fractures or dislocations. No suspicious bony lesions. The visualized pelvic ring appears intact. Bilateral moderate joint space narrowing and minimal subchondral sclerosis. Both femoral heads have an appropriate contour. Soft tissues: No suspicious soft tissue calcifications or masses. IMPRESSION: 1. Moderate bilateral joint space narrowing without fracture or dislocation. Approved by: Madi Yates M.D. on 12/05/2021 at 10:09
== END ==
PROVIDERS: PCP Family Medicine; Referring Provider Family Medicine; Visit Provider Family Medicine
DX: M25.552 Pain in left hip (principal)
CPT/HCPCS: 73502

== ENCOUNTER → 2022-01-01 15:43 | Outpatient (CLI) | payer MEDICARE, OTHER, SELFPAY ==
[2020-11-27 15:47] VITALS: BMI 38.9
--- NOTE | 2022-01-01 | DI.ECHO.S_ITS ---
[facility]---------+ [facility] +---------+ : : [address] : : : : [id number] : : : : Phone: [phone]+ Echocardiogram Report + + :Name: LISA LARA V Study Date: 01/01/2022 Height: 74 in : :[facility] ReadingLocation: Weight: 300 lb : : Gender: Male BSA: 2.6 m2 : :: 1945 Age: 76 yrs BP: 167/103 mmHg: :Reason For Study: SHORTNESS OF BREATH : :Ordering Physician: IGNACIO : :ESTELITA Performed By: Maricarmen Seals : :Referring: ESTELITA PIERRE : + + Interpretation Summary The left ventricle is normal in size. The ejection fraction is estimated to be 55-60%. Grade I diastolic dysfunciton. The right ventricle is normal in size and function. The right ventricular systolic pressure is estimated to be at least 33 mmHg based on an estimated right atrial pressure of 3 mm Hg. The ascending aorta is mildly enlarged 4.0cm No significant valvular disease. Moderate biatrial enlargement. Procedure: A two-dimensional transthoracic echocardiogram with color flow and Doppler was performed. The study quality was technically adequate. Comparison is made with the echocardiogram of 10/26/2017. The patient was in atrial fibrillation with heart rates between 56-85 bpm during the exam. Left Ventricle: The left ventricle is normal in size. Concentric Remodeling. The ejection fraction is estimated to be 55-60%. Left ventricular wall motion is normal. Grade I diastolic dysfunciton. Right Ventricle: The right ventricle is normal in size and function. Atria: The left atrium is moderately dilated. The right atrium is moderately dilated. There is no Doppler evidence for an interatrial shunt. Mitral Valve: The mitral valve is normal in structure and function. There is trace mitral regurgitation. Aortic Valve: The aortic valve is slightly calcified. There is mild aortic valve sclerosis. There is no hemodynamically significant valvular aortic stenosis. No aortic regurgitation is present. Tricuspid Valve: The tricuspid valve is not well visualized, but is grossly normal. There is mild tricuspid regurgitation. The right ventricular systolic pressure is estimated to be at least 33 mmHg based on an estimated right atrial pressure of 3 mm Hg. Pulmonic Valve: The pulmonic valve is not well visualized. There is a trace or physiologic amount of pulmonic regurgitation. Great Vessels: The aortic root is normal size. The ascending aorta is mildly enlarged. The IVC is of normal diameter and collapses greater than 50% with a sniff. This suggests a low right atrial pressure of 3 mm Hg. Pericardium/ Pleura There is no pericardial effusion. There is no pleural effusion. MMode/2D Measurements & Calculations LVIDd: 4.8 cm LVOT diam: 2.4 cm LVIDs: 3.3 cm Ao root diam: 3.8 cm FS: 31.3 % asc Aorta Diam: 4.0 cm IVSd: 1.3 cm Ao Arch Diam (Prox Trans): 4.1 cm LVPWd: 1.3 cm LV nieves. diameter/BSA (cm/m^2): 1.8 LV sys. diameter/BSA (cm/m^2): 1.3 LA A2 area: 30.9 cm2 RA long axis: 7.5 cm LA A4 area: 32.1 cm2 RA area: 31.8 cm2 LA length (vol): 7.3 cm RA vol: 114.3 ml LA vol: 116.0 ml RA : 44.3 ml/m2 LA vol index: 44.9 ml/m2 IVC diam: 1.9 cm RVD1 (basal): 3.9 cm RVD2 (mid): 3.2 cm TAPSE: 1.8 cm Doppler Measurements & Calculations Ao V2 max: 187.9 cm/sec LVOT Max Alexis: 76.2 cm/sec Ao V2 mean: 137.9 cm/sec LV V1 max P.3 mmHg Ao max P.1 mmHg LV V1 VTI: 16.6 cm Ao mean P.3 mmHg DON(I,D): 1.8 cm2 Ao V2 VTI: 42.2 cm DON(V,D): 1.8 cm2 sev ratio: 0.39 DON indexed to BSA (cm^2/m^2): 0.68 MV E max alexis: 94.5 cm/sec TR max alexis: 272.7 cm/sec MV A max alexis: 1.7 cm/sec TR max P.7 mmHg MV E/A: 57.0 PA V2 max: 86.6 cm/sec Med Peak E' Alexis: 7.3 cm/sec PA V2 mean: 63.4 cm/sec E/E' med: 13.0 PA mean P.8 mmHg Lat Peak E' Alexis: 8.8 cm/sec PA pr(Accel): 19.1 mmHg E/E' lat: 10.8 E/e' average: 11.9 MV dec time: 0.22 sec SV(LVOT): 74.2 ml Reading Physician:NISA
== END ==
PROVIDERS: PCP Family Medicine; Referring Provider Family Medicine; Visit Provider Family Medicine
DX: I77.89 Other specified disorders of arteries and arterioles (principal); I07.1 Rheumatic tricuspid insufficiency; R06.02 Shortness of breath
CPT/HCPCS: 93306

== ENCOUNTER 2022-10-05 12:14 | Emergency (ER) | payer MEDICARE, OTHER, SELFPAY ==
[2020-11-27 15:47] VITALS: BMI 38.9
[2022-10-05] VITALS (11 sets, daily range): BP systolic 133–159; BP diastolic 67–82; PULSE 61–75; RESP 21–36; TEMP 37.1; O2SAT 95–98; BMI 39.5
--- NOTE | 2022-10-05 12:30 | DI.RAD.S_ITS ---
PROCEDURE: XR CHEST 1V INDICATIONS: Shortness of breath TECHNIQUE: One view of the chest was acquired. COMPARISON: [facility], CR, XR CHEST 1V, 11/22/2020, 7:58. [facility], CR, XR CHEST 1V, 05/20/2020, 1:05. FINDINGS: Surgical changes and devices: None. Lungs and pleura: Mild right mid lower lung perihilar opacity. No pleural effusion. Mediastinum: Heart size is at the upper limit of normal. Bones and chest wall: Chronic right clavicle deformity and nonunion. IMPRESSION: Mild right perihilar mid and lower lung opacity, possibly infectious or inflammatory. Consider future imaging surveillance to assess for resolution. Dictated by: Patrick Ugalde M.D. on 10/05/2022 at 11:51 Approved by: Patrick Ugalde M.D. on 10/05/2022 at 11:52
[2022-10-05 12:39] LABS: Add Manual Diff / Slide Review NO; Basophils Absolute Auto 0 /uL (0-100); Basophils Percent Auto 0.8 % (0-2); Eosinophils Absolute Auto 100 /uL (0-450); Eosinophils Percent Auto 2.4 % (2-4); Hemoglobin 15.3 g/dL (13.5-17.5); Lymphocytes Absolute Auto 1800 /uL (1100-4500); Lymphocytes Percent Auto 36.2 % (25-40); Mean Corpuscular HGB Conc 34.7 % (30-36); Mean Corpuscular Hemoglobin 33.5 PG (26-34); Mean Corpuscular Volume 96.6 fL (80-100); Monocytes Absolute Auto 800 /uL (0-900); Monocytes Percent Auto 16.1 % (3-14); Neutrophils Absolute Auto 2200 /uL (1500-7000); Neutrophils Percent Auto 44.5 % (50-75); Platelet Count 162 X10^3/uL (150-400); Red Blood Cell Count 4.56 X10^6/uL (4.5-5.9); Red Cell Distribution Width 14.1 % (11.6-14.8); White Blood Cell Count 4.9 X10^3/uL (4.5-11.0)
[2022-10-05 12:58] LABS: Lactate (Lactic Acid) 1.3 mmol/L (0.7-2.1)
[2022-10-05 12:59] LABS: Alanine Aminotransferase 23 IU/L (<50); Albumin 3.9 g/dL (3.5-5.0); Albumin Globulin Ratio 1.1 (1.0-2.8); Alkaline Phosphatase 87 U/L (38-126); Aspartate Aminotransferase 37 IU/L (17-59); BUN Creatinine Ratio 12.7 (6-22); Bilirubin Total 0.7 mg/dL (0.2-1.3); Blood Urea Nitrogen 17 mg/dL (9-20); Calcium 8.5 mg/dL (8.4-10.2); Carbon Dioxide 25 mmol/L (22-32); Chloride 101 mmol/L (98-107); Estimated Glomerular Filt Rate 55 mL/min (>60); Globulin 3.4 g/dL (1.7-4.1); Glucose 111 mg/dL (80-110); HEMOLYSIS 19 (0-50); Potassium 3.4 mmol/L (3.4-5.1); Sodium 137 mmol/L (137-145); Total Protein 7.3 g/dL (6.3-8.2)
[2022-10-05 13:11] LABS: NT-proBNP (BNP-Adult 18+) 702 pg/mL (<450); Troponin I < 0.012 ng/mL (0.01-0.034)
--- NOTE | 2022-10-05 13:18 | ED.URI ---
HPI - URI/Sore Throat General Chief Complaint: Upper Respiratory Symptoms Stated Complaint: Low BP, exhaustion, cant retain food/fluid Time Seen by Provider: 10/05/22 12:33 Source: patient and family Mode of arrival: Family Vehicle History of Present Illness HPI Narrative: Patient is a 76-year-old male history of atrial fibrillation not on anticoagulation,. Congestive heart failure, hypertension, presents today with not feeling well. He says for the last 4 days he is had a variety of symptoms he said the 1st day he is had significant cough the 2nd day he had significant amounts of diarrhea he is had some nausea. He is really not been able to keep much down. He feels dizzy and lightheaded he stands up. He denies any thin significant abdominal pain. He did get Imodium earlier which has helped with the diarrhea. He denies any significant chest pain. Related Data Home Medications Medication Instructions Recorded Confirmed metoprolol tartrate 25 mg tablet 50 mg PO BID 05/16/20 11/29/20 hydralazine 10 mg tablet 10 mg PO BID 11/22/20 11/29/20 Previous Rx's Medication Instructions Recorded acetaminophen 325 mg capsule 650 mg PO QID PRN pain #60 caps 11/26/20 (Tylenol) ibuprofen 200 mg capsule 400 mg PO Q6H PRN pain #90 caps 11/26/20 oxycodone 5 mg tablet 5 mg PO Q6H PRN pain #30 tabs 11/27/20 ondansetron 4 mg disintegrating 4 mg PO Q8H PRN nausea and 10/05/22 tablet vomiting #10 tabs Allergies Allergy/AdvReac Type Severity Reaction Status Date / Time morphine Allergy cardiac Verified 10/05/22 12:52 arrest Review of Systems Review of Systems Narrative: GENERAL: Denies chills, fatigue, malaise, fever, sweats, travel HEENT: Denies sinus pain, ear pain, sore throat, difficulty swallowing, neck pain RESPIRATORY: Denies dyspnea, cough, wheezing, hemoptysis, sputum. CARDIOVASCULAR:see HPI GASTROINTESTINAL: See HPI : Denies dysuria, frequency, incontinence, hematuria, urinary retention, flank pain. MUSCULOSKELETAL: Denies weakness, joint pain, or bony pain SKIN: No rash, no erythema, no pruritus NEUROLOGIC: Denies weakness, dizziness, headache, numbness, change in speech, confusion PSYCHIATRIC: No concerning psychosocial issues. 12 point review of systems is negative except for those stated above and HPI Patient History Medical History (Updated 10/05/22 @ 15:55 by Daniela Mtz DO) Atrial fibrillation Congestive heart failure Hypertensive urgency Tobacco dependence Surgical History H/O skin graft S/P TURP Status post knee surgery Total knee replacement status Family History Mother CVA (cerebral vascular accident) Myocardial infarct Father Diabetes mellitus Social History household members: none Smoking Status: Current every day smoker alcohol intake: current Smoking Status: Current every day smoker alcohol intake frequency: holidays/special occasions only Alcohol type: hard liquor Substance Use Type: does not use Exam Initial Vital Signs Initial Vital Signs: Vital Signs Temperature 98.7 F 10/05/22 12:15 Pulse Rate 61 10/05/22 12:15 Respiratory Rate 22 10/05/22 12:15 Blood Pressure 159/78 H 10/05/22 12:15 Pulse Oximetry 98 10/05/22 12:15 Oxygen Delivery Method 10/05/22 12:15 GENERAL: Alert 76-year-old male no acute distress HEENT: Head atraumatic,EOMI, pupils reactive, face symmetric, moist mucous membranes CARDIOVASCULAR: Irregularly irregular no murmur RESPIRATORY: Breath sounds equal bilaterally, no wheezes rales or rhonchi. ABDOMEN: Soft, nontender. Normoactive bowel sounds all 4 quadrants. No guarding or rebound. EXTREMITIES: Normal range of motion, no clubbing or edema. Neurovascularly intact NEUROLOGICAL: Alert and oriented x4.Normal gait and speech. SKIN: Bilateral chronic venous stasis no significant erythema Course Orders Ordered: ED Orders 10/05/22 12:18 Complete Blood Count AUTO DIFF Stat Comprehensive Metabolic Panel Stat Lactate (Lactic Acid) Stat NT-proBNP (BNP-Adult 18+) Stat Procalcitonin Stat Troponin I Stat 10/05/22 12:25 Covid-19 + FLU A/B + RSV - PCR Stat 10/05/22 12:29 EKG-12 Lead Stat 10/05/22 12:30 XR chest 1V Stat Measure peak expiratory flow ONCE RT Consult Eval and Treat NOW Discontinued Medications Sodium Chloride (Normal Saline 0.9%) 1,000 mls @ 1,000 mls/hr IV BOLUS ONE Stop: 10/05/22 14:18 Last Infusion: 10/05/22 15:05 Dose: 0 mls/hr Documented By: Admin: 10/05/22 13:41 Dose: 1,000 mls/hr Documented By: MADHAVI Vital Signs Vital signs: Vital Signs - 8 hr 10/05/22 12:15 10/05/22 12:36 10/05/22 13:00 Temperature 98.7 F Pulse Rate 61 68 67 Respiratory Rate 22 36 H Blood Pressure 159/78 H Pulse Oximetry 98 95 95 Oxygen Delivery Method Room Air 10/05/22 13:30 10/05/22 13:33 10/05/22 13:33 Temperature Pulse Rate 61 63 Respiratory Rate 34 H 26 H Blood Pressure 141/67 H Pulse Oximetry 96 98 Oxygen Delivery Method 10/05/22 14:00 10/05/22 14:01 10/05/22 14:01 Temperature Pulse Rate 61 62 Respiratory Rate 21 21 Blood Pressure 133/82 Pulse Oximetry 98 97 Oxygen Delivery Method 10/05/22 14:30 10/05/22 14:31 10/05/22 14:31 Temperature Pulse Rate 64 75 Respiratory Rate 23 Blood Pressure 152/67 H Pulse Oximetry 97 97 Oxygen Delivery Method 10/05/22 15:00 10/05/22 15:01 10/05/22 15:01 Temperature Pulse Rate 63 64 Respiratory Rate 21 22 Blood Pressure 157/74 H Pulse Oximetry 97 96 Oxygen Delivery Method Room Air MDM - URI/Sore Throat Lab Data Result diagrams: 10/05/22 12:18 10/05/22 12:18 Labs: Lab Results 10/05/22 10/05/22 10/05/22 Range/Units 12:18 12:18 12:18 WBC 4.9 (4.5-11.0) X10^3/uL RBC 4.56 (4.5-5.9) X10^6/uL Hgb 15.3 (13.5-17.5) g/dL Hct 44.0 (41-53) % MCV 96.6 (80-100) fL MCH 33.5 (26-34) PG MCHC 34.7 (30-36) % RDW 14.1 (11.6-14.8) % Plt Count 162 (150-400) X10^3/uL Neut % (Auto) 44.5 L (50-75) % Lymph % (Auto) 36.2 (25-40) % [place] % (Auto) 16.1 H (3-14) % Eos % (Auto) 2.4 (2-4) % Baso % (Auto) 0.8 (0-2) % Neut # (Auto) 2200 (8012-3967) /uL Lymph # (Auto) 1800 (0214-9755) /uL [place] # (Auto) 800 (0-900) /uL Eos # (Auto) 100 (0-450) /uL Baso # (Auto) 0 (0-100) /uL Sodium 137 (137-145) mmol/L Potassium 3.4 (3.4-5.1) mmol/L Chloride 101 (98-107) mmol/L Carbon Dioxide 25 (22-32) mmol/L BUN 17 (9-20) mg/dL Creatinine 1.34 H (0.66-1.25) mg/dL Estimated GFR 55 L (>60) mL/min BUN/Creatinine Ratio 12.7 (6-22) Glucose 111 H (80-110) mg/dL Lactate 1.3 (0.7-2.1) mmol/L Calcium 8.5 (8.4-10.2) mg/dL Total Bilirubin 0.7 (0.2-1.3) mg/dL AST 37 (17-59) IU/L ALT 23 (<50) IU/L Alkaline Phosphatase 87 (38-126) U/L Troponin I < 0.012 (0.01-0.034) ng/mL NT-Pro-B Natriuret Pep 702 H (<450) pg/mL Total Protein 7.3 (6.3-8.2) g/dL Albumin 3.9 (3.5-5.0) g/dL Globulin 3.4 (1.7-4.1) g/dL Albumin/Globulin Ratio 1.1 (1.0-2.8) Procalcitonin (<0.5) ng/mL SARS-CoV-2 (PCR) (Negative) Influenza A (RT-PCR) (NEGATIVE) Influenza B (RT-PCR) (NEGATIVE) RSV (PCR) (Negative) 12/18/22 12/18/22 12/18/22 Range/Units 12:18 12:25 13:45 WBC (4.5-11.0) X10^3/uL RBC (4.5-5.9) X10^6/uL Hgb (13.5-17.5) g/dL Hct (41-53) % MCV (80-100) fL MCH (26-34) PG MCHC (30-36) % RDW (11.6-14.8) % Plt Count (150-400) X10^3/uL Neut % (Auto) (50-75) % Lymph % (Auto) (25-40) % [place] % (Auto) (3-14) % Eos % (Auto) (2-4) % Baso % (Auto) (0-2) % Neut # (Auto) (7268-8569) /uL Lymph # (Auto) (5275-5024) /uL [place] # (Auto) (0-900) /uL Eos # (Auto) (0-450) /uL Baso # (Auto) (0-100) /uL Sodium (137-145) mmol/L Potassium (3.4-5.1) mmol/L Chloride (98-107) mmol/L Carbon Dioxide (22-32) mmol/L BUN (9-20) mg/dL Creatinine (0.66-1.25) mg/dL Estimated GFR (>60) mL/min BUN/Creatinine Ratio (6-22) Glucose (80-110) mg/dL Lactate Cancelled (0.7-2.1) mmol/L Calcium (8.4-10.2) mg/dL Total Bilirubin (0.2-1.3) mg/dL AST (17-59) IU/L ALT (<50) IU/L Alkaline Phosphatase (38-126) U/L Troponin I (0.01-0.034) ng/mL NT-Pro-B Natriuret Pep (<450) pg/mL Total Protein (6.3-8.2) g/dL Albumin (3.5-5.0) g/dL Globulin (1.7-4.1) g/dL Albumin/Globulin Ratio (1.0-2.8) Procalcitonin 0.08 (<0.5) ng/mL SARS-CoV-2 (PCR) Negative (Negative) Influenza A (RT-PCR) Flu a positive H (NEGATIVE) Influenza B (RT-PCR) Flu b negative (NEGATIVE) RSV (PCR) Negative (Negative) Imaging Data Chest x-ray: Radiologist's Impression: XRay Report Signed Patient: Sreekanth Gomez MR#: [id number] : 1945 Acct:[id number] Age/Sex: 76 / M Date of Service: 10/05/22 Loc: ED Accession Number: [id number] ?? Procedure: XR chest 1V Ordering Provider: Daniela Mtz D.O. PROCEDURE:? XR CHEST 1V ? INDICATIONS:? Shortness of breath ? TECHNIQUE:? One view of the chest was acquired.? ? COMPARISON:? [facility], CR, XR CHEST 1V, 11/22/2020, 7:58.? [facility], CR, XR CHEST 1V, 05/20/2020, 1:05. ? FINDINGS:? ? Surgical changes and devices:? None.? ? Lungs and pleura:? Mild right mid lower lung perihilar opacity.? No pleural effusion. ? Mediastinum:? Heart size is at the upper limit of normal. ? Bones and chest wall:? Chronic right clavicle deformity and nonunion. ? IMPRESSION:? Mild right perihilar mid and lower lung opacity, possibly infectious or inflammatory.? Consider future imaging surveillance to assess for resolution. ? ? ? Dictated by: Patrick Ugalde M.D. on 10/05/2022 at 11:51 ? ? ECG Data Interpretation: Atrial fibrillation rate [address] changes no T-wave inversions similar to previous EKG in 2020 [facility] Narrative Medical decision making narrative: Patient presents with 4 days of symptoms starting with fever body aches shortness of breath and ongoing diarrhea with nausea and decreased intake. He is found to be mildly dehydrated on his labs with an elevated creatinine of 1.34, normally less than 1. He is given a L of fluids for his symptoms of some dizziness and lightheadedness. He is a normal lactic and procalcitonin. No evidence of pneumonia. He is tolerating oral fluids. At this time patient is ambulatory he is no longer symptomatic there is no need for admission to the hospital. And he would like to go home. Differential diagnosis includes pneumonia, gastroenteritis, influenza, sepsis Discharge Plan Departure Patient Disposition: Home Clinical Impression: Influenza A, Dehydration Instructions: Dehydration, DI for Influenza -- Adult Activity Restrictions/Additional Instructions: *You have been diagnosed with dehydration and influenza a *What to do: At this time increase fluids as tolerated. Recommend Gatorade or Gatorade like substance *Continue to take medications as directed Zofran 4 mg every 8 hours if needed for nausea or vomiting--> SENT TO [facility] *Follow up with your primary care provider in 2-3 days or call [phone] *Return to ER if you should have increasing shortness of breath, dizziness, lightheadedness, not tolerating fluids or any new, worsening or concerning symptoms Prescriptions: New ondansetron 4 mg tablet,disintegrating 4 mg PO Q8H PRN (Reason: nausea and vomiting) Qty: 10 0RF No Action metoprolol tartrate 25 mg Tablet 50 mg PO BID hydralazine 10 mg tablet 10 mg PO BID acetaminophen [Tylenol] 325 mg capsule 650 mg PO QID PRN (Reason: pain) Qty: 60 0RF ibuprofen 200 mg capsule 400 mg PO Q6H PRN (Reason: pain) Qty: 90 0RF oxycodone 5 mg tablet 5 mg PO Q6H PRN (Reason: pain) Qty: 30 0RF Referrals: Linda Melendez MD [Primary Care Provider] - Visit Report Forms: Patient Portal/API
[2022-10-05 13:29] LABS: Influenza A - CEPHEID Flu A POSITIVE (NEGATIVE); Influenza B - CEPHEID Flu B NEGATIVE (NEGATIVE); Respiratory Syncytial Virus Negative (Negative)
[2022-10-05 13:30] LABS: COVID-19 CEPHEID 4-PLEX PCR Negative (Negative)
[2022-10-05] MEDS: SODIUM CHLORIDE 0.9% 1,000 ML 1000 ML IV (13:41)
[2022-10-05 15:01] LABS: Procalcitonin 0.08 ng/mL (<0.5)
== END 2022-10-05 16:05 | disposition home or self-care (01) ==
PROVIDERS: Emergency Provider Emergency Medicine; PCP Family Medicine
DX: J10.1 Influenza due to other identified influenza virus with other respiratory manifestations (principal); E86.0 Dehydration; R42 Dizziness and giddiness; R19.7 Diarrhea, unspecified; Z20.822 Contact with and (suspected) exposure to COVID-19
CPT/HCPCS: 0241U; 36415; 71045; 80053; 83605; 83880; 84145; 84484; 85025; 93005; 96360; 99284